=== PATIENT | female | born 1960 | race Caucasian/White ===

== ENCOUNTER → 2020-03-25 07:31 | Outpatient (BNVA) | payer OTHER, SELFPAY | PROVIDERS: PCP Family Medicine; Referring Provider Family Medicine; Visit Provider Internal Medicine | DX: Z76.89 Persons encountering health services in other specified circumstances (principal) ==

== ENCOUNTER 2020-03-27 07:30 | Outpatient (REF) | payer OTHER, SELFPAY ==
[2020-03-28 11:21] LABS: Thyroid Peroxidase Antibodies 4 IU/mL (<9)
== END 2020-03-27 07:31 | disposition home or self-care (01) ==
LOC: HO.10HDL 07:30
PROVIDERS: Visit Provider Internal Medicine
DX: E04.2 Nontoxic multinodular goiter (principal); I10 Essential (primary) hypertension; E55.9 Vitamin D deficiency, unspecified
CPT/HCPCS: 36415; 86376

== ENCOUNTER 2020-03-27 07:37 | Outpatient (REF) | payer OTHER, SELFPAY ==
[2020-03-27 11:01] LABS: Anion Gap 15 (12-20); Blood Urea Nitrogen 18 mg/dL (9-16); Calcium 9.3 mg/dL (8.4-10.2); Carbon Dioxide 27 mmol/L (22-29); Chloride 100 mmol/L (96-108); Estimated Glomerular Filt Rate > 60; Glucose Random 91 mg/dL (60-115); Potassium 4.1 mmol/l (3.3-5.1); Sodium 138 mmol/L (135-145)
[2020-03-27 11:26] LABS: Free T4 (Free Thyroxine) 1.12 ng/dL (0.71-1.85); Thyroid Stimulating Hormone 2.71 mIU/mL (0.32-4.0); Vitamin D 25-OH Total 18.6 ng/mL (>30)
[2020-03-28 10:37] LABS: Triiodothyronine T3 Total 93 ng/dL (76-181)
== END 2020-03-27 07:38 | disposition home or self-care (01) ==
LOC: HO.10HDL 07:37
PROVIDERS: Visit Provider Internal Medicine
DX: E04.2 Nontoxic multinodular goiter (principal); I10 Essential (primary) hypertension; E55.9 Vitamin D deficiency, unspecified
CPT/HCPCS: 80048; 82088; 82306; 84244; 84439; 84443; 84480

== ENCOUNTER 2020-05-14 07:46 | Outpatient (REF) | payer OTHER, SELFPAY ==
--- NOTE | 2020-05-14 08:46 | PM.OP ---
Brief Operative Note Date of Service: 05/14/20 Surgeon: Sommer Enrique, DO This is doctor Sommer Enrique. This is an ultrasound-guided fine-needle aspiration report. Patient name: Prema Mccollum : 1960 Date of Examination: 05/14/2020 Referring Physician Is: Indication: Multinodular Thyroid Porcedure: Procedure was explained to the patient. Alternatives, the risk and benefits were discussed. Written consent was obtained. A time-out was also obtained. After sterile preparation, fine-needle aspiration of A right lower pole 2.9 cm thyroid nodule was performed using direct ultrasound guidance to confirm accurate needle placement. Four aspirations were made using 27 gauge needles. Samples were submitted for cytology. One pass was dedicated for [employer] sequencing tax examining technician testing. Fine-needle aspiration of A right mid pole 1.4 cm thyroid nodule was performed using direct ultrasound guidance to confirm accurate needle placement. Four aspirations were made using 27 gauge needles. Samples were submitted for cytology. One pass was dedicated for [employer] sequencing tax examining technician testing.The patient tolerated the procedure well. Aftercare instructions were provided. Impression: Uncomplicated fine needle aspiration biopsy of a R lower pole 2.9 cm and a R mid pole 1.4 cm thyroid nodule under ultrasound guideance. Estimated blood loss (mL): 0
[2020-05-14] MEDS: Lidocaine HCl 1 % MPF 5 ML VIAL SUBCUT (11:27)
== END 2020-05-14 07:47 | disposition home or self-care (01) ==
LOC: HO.US 07:46
PROVIDERS: PCP Family Medicine; Visit Provider Internal Medicine
DX: E04.2 Nontoxic multinodular goiter (principal)
CPT/HCPCS: 10005; 88172; 88173; 88177; 88305

== ENCOUNTER → 2020-05-27 08:09 | Outpatient (BNVA) | payer OTHER, SELFPAY | PROVIDERS: PCP Family Medicine; Referring Provider Family Medicine; Visit Provider Internal Medicine | DX: Z76.89 Persons encountering health services in other specified circumstances (principal) ==

== ENCOUNTER 2020-06-12 07:26 | Outpatient (REF) | payer OTHER, SELFPAY ==
--- NOTE | 2020-06-12 07:28 | CT_ITS ---
EXAMINATION: CT SOFT TISSUE NECK WITHOUT CONTRAST CLINICAL INFORMATION: Nontoxic multinodular goiter. COMPARISON: Cervical spine CT January 2020 and thyroid ultrasound February 2020 TECHNIQUE: Helical imaging was performed in the axial plane with generation of coronal and sagittal reformatted images. This CT examination was performed using dose optimization techniques as appropriate, variously including the following: *Automated exposure control *Adjustment of mA and/or kV according to patient size (this includes techniques or standardized protocols for targeted exams where dose is matched to indication/reason for exam; i.e. extremities or head) *Use of iterative reconstruction technique DLP: 379 mGy-cm FINDINGS: The right lobe of the thyroid gland is enlarged measuring 6 x 3 x 3 cm in sagittal AP and transverse dimension. The left lobe of the thyroid gland is normal in size measuring 3.6 x 1.2 x 1.5 cm in sagittal AP and transverse dimension. There are multiple bilateral thyroid nodules. The largest thyroid nodule in the mid to lower pole of the right lobe measures approximately 2.8 x 2.8 x 2.3 cm, appears complex cystic and partially calcified. No substernal extension is seen. No tracheal impingement or displacement is seen. There is food seen in the cervical and visualized thoracic esophagus. There are no enlarged lymph nodes. The visualized intracranial structures are normal. The visualized orbits, paranasal sinuses, mastoid air cells and middle ears are clear. Temporomandibular joints are normal. Salivary glands are normal. The nasopharynx, oropharynx and hypopharynx are normal. There is multilevel degenerative spondylosis, degenerative disc disease and facet arthritis. There is curvature of the lower cervical and upper thoracic spine to the right. CT/CT soft tissue neck wo con IMPRESSION: Enlarged right thyroid lobe. Bilateral thyroid nodules. The largest nodule is in the mid and lower pole of the right lobe, measures 3.6 x 1.2 x 1.5 cm, appears complex cystic with calcifications. No mass effect on the trachea or deviation is seen. The cervical and visualized thoracic esophagus is filled with food. Clinical correlation is recommended, i.e., has the patient recently eaten?
== END 2020-06-12 07:27 | disposition home or self-care (01) ==
LOC: HO.CT 07:26
PROVIDERS: PCP Family Medicine; Visit Provider Internal Medicine
DX: E04.2 Nontoxic multinodular goiter (principal)
CPT/HCPCS: 70490

== ENCOUNTER → 2020-07-16 13:44 | Outpatient (BNVA) | payer OTHER, SELFPAY | PROVIDERS: PCP Family Medicine; Visit Provider Internal Medicine ==

== ENCOUNTER 2020-08-07 09:26 | Outpatient (REF) | payer OTHER, SELFPAY ==
--- NOTE | ~2020-08-07 | FL_ITS ---
PROCEDURE: FL BARIUM SWALLOW CLINICAL INFORMATION: Dysphagia. COMPARISON: None TECHNIQUE: Barium swallow examination is performed using fluoroscopic evaluation in addition to multiple fluoroscopic spot views. The patient is imaged both upright and prone and using both thick and thin sulfate along with effervescent granules. Fluoroscopy time: 1.7 minutes DAP: 9.183 Gycm2 Images: 53 FINDINGS: Following oral administration of thin, thick barium and barium-coated turkey there is normal propagation of bolus from the oral cavity through the pharynx, esophagus into stomach without any evidence of obstruction, narrowing or stricture. On placing patient prone lying and oral administration of thin barium there is good distention of esophagus without intraluminal filling defect or narrowing. No gastroesophageal reflux or hiatal hernia seen. There is occasional tertiary peristalsis seen in esophagus in supine lying position. Also visualized is retained barium in the dependent portion of esophagus in supine position. FL/FL barium swallow IMPRESSION: Unremarkable barium swallow exam in upright and lying position. Occasional tertiary peristalsis and minimal retained barium in esophagus in supine position. Fluoroscopy time: 1.7 minutes. Dose area product: 9.183. Images: 53.
== END 2020-08-07 09:27 | disposition home or self-care (01) ==
LOC: HO.XRAY 09:26
PROVIDERS: PCP Family Medicine; Visit Provider Internal Medicine
DX: R13.10 Dysphagia, unspecified (principal)
CPT/HCPCS: 74220

== ENCOUNTER 2020-08-27 07:37 | Outpatient (REF) | payer OTHER, SELFPAY ==
[2020-08-27 11:17] LABS: Free T4 (Free Thyroxine) 1.02 ng/dL (0.71-1.85); Thyroid Stimulating Hormone 2.47 uIU/mL (0.32-4.0); Vitamin D 25-OH Total 58.1 ng/mL (>30)
== END 2020-08-27 07:38 | disposition home or self-care (01) ==
LOC: HO.10HDL 07:37
PROVIDERS: Visit Provider Internal Medicine
DX: E04.2 Nontoxic multinodular goiter (principal); E55.9 Vitamin D deficiency, unspecified
CPT/HCPCS: 36415; 82306; 84439; 84443

== ENCOUNTER 2021-03-25 08:24 | Outpatient (REF) | payer OTHER, SELFPAY ==
[2021-03-25 11:38] LABS: Albumin Level 4.2 g/dL (3.5-5.0); Calcium 9.4 mg/dL (8.4-10.2)
[2021-03-25 12:05] LABS: Free T4 (Free Thyroxine) 0.77 ng/dL (0.71-1.85); Thyroid Stimulating Hormone 9.21 uIU/mL (0.32-4.0); Vitamin D 25-OH Total 35.7 ng/mL (>30)
[2021-03-26 15:51] LABS: Calcium (PTHI) 9.4 mg/dL (8.6-10.4); PTHI 25 pg/mL (14-64)
== END 2021-03-25 08:25 | disposition home or self-care (01) ==
LOC: HO.10HDL 08:24
PROVIDERS: Visit Provider Internal Medicine
DX: E04.2 Nontoxic multinodular goiter (principal); E55.9 Vitamin D deficiency, unspecified
CPT/HCPCS: 36415; 82040; 82306; 82310; 83970; 84439; 84443

== ENCOUNTER → 2021-03-29 07:53 | Outpatient (BNVA) | payer OTHER, SELFPAY | PROVIDERS: PCP Family Medicine; Visit Provider Internal Medicine ==

== ENCOUNTER 2021-05-10 16:05 | Outpatient (REF) | payer OTHER, SELFPAY ==
--- NOTE | ~2021-05-10 | US_ITS ---
EXAMINATION: US THYROID CLINICAL INFORMATION: Nontoxic multinodular goiter. COMPARISON: CT soft tissue neck without contrast dated 06/12/2020. ultrasound guided fine needle aspiration of the thyroid dated 05/14/2020. Ultrasound soft tissue head/neck thyroid dated 02/12/2020. TECHNIQUE: Linear transducer grayscale and color Doppler examination with attention to the region of the thyroid. FINDINGS: SIZE: Measurements of the solitary left thyroid lobe and nodules are given in sagittal, anteroposterior and transverse dimensions respectively. Right Thyroid Lobe: Surgically removed. Left Thyroid Lobe: 4.2 x 1.1 x 1.1 cm, volume 2.7 mL. Previously 4.2 x 1.1 x 1.2 cm, volume 2.9 mL. Parenchyma: The gland echotexture is heterogeneous. Thyroid vascularity is normal. Isthmus: Surgically removed. Estimated total number of nodules greater than or equal to 1 cm: 1. Watch Manufacturing Supervisor nodules are described as follows: 1. Location: Left superior. Size: 0.31 x 0.29 x 0.4 cm, volume 0.02 mL. Previously: 0.42 x 0.33 x 0.4 cm, volume 0.02 mL. Nodule characteristics: Composition: Solid (2). Echogenicity: Hyperechoic (1). Shape: Not taller than wide (0). Margins: Smooth (0). Echogenic Foci: None (0). ACR TI-RADS total points: 3 Previous: n/a ACR TI-RADS category: 3 Previous: n/a Significant change in size (>/= 20% in 2 dimensions and minimal increase of 2 mm or 50% or greater increase in volume): No Change in features: No Change in ACR TI-RADS risk category: n/a 2. Location: Left superior. Size: 0.38 x 0.34 x 0.51 cm, volume 0.03 mL. Previously: 0.7 x 0.51 x 0.5 cm, volume 0.09 mL. Nodule characteristics: Composition: Solid (2). Echogenicity: Hyperechoic (1). Shape: Not taller than wide (0). Margins: Smooth (0). Echogenic Foci: None (0). ACR TI-RADS total points: 3 Previous: n/a ACR TI-RADS category: 3 Previous: n/a Significant change in size (>/= 20% in 2 dimensions and minimal increase of 2 mm or 50% or greater increase in volume): No Change in features: No Change in ACR TI-RADS risk category: n/a 3. Location: Left mid. Size: 0.61 x 0.48 x 0.61 cm, volume 0.09 mL. Previously: 0.71 x 0.51 x 0.59 cm, volume 0.11 mL. Nodule characteristics: Composition: Solid/almost completely solid (2). Echogenicity: Hypoechoic (2). Shape: Not taller than wide (0). Margins: Smooth (0). Echogenic Foci: None (0). ACR TI-RADS total points: 4 Previous: n/a ACR TI-RADS category: 4 Previous: n/a Significant change in size (>/= 20% in 2 dimensions and minimal increase of 2 mm or 50% or greater increase in volume): No Change in features: No Change in ACR TI-RADS risk category: n/a 4. Location: Left inferior. Size: 1.1 x 0.74 x 0.86 cm, volume 0.36 mL. Previously: 1.3 x 0.7 x 0.81 cm, volume 0.39 mL. Nodule characteristics: Composition: Solid/almost completely solid (2). Echogenicity: Hyperechoic (1). Shape: Not taller than wide (0). Margins: Smooth (0). Echogenic Foci: None (0). ACR TI-RADS total points: 3 Previous: n/a ACR TI-RADS category: 3 Previous: n/a Significant change in size (>/= 20% in 2 dimensions and minimal increase of 2 mm or 50% or greater increase in volume): No Change in features: No Change in ACR TI-RADS risk category: n/a NODES: No lymphadenopathy is seen in the tissue surrounding the thyroid gland. US/US thyroid IMPRESSION: Multinodular left lobe of the thyroid gland. No significant change in size or appearance of the thyroid nodules. Based on size and TI-RADS category of these nodules, no further follow-up is recommended.. ACR TI-RADS RECOMMENDATION REFERENCE: Ultrasound-guided fine-needle aspiration, followup ultrasound, no further follow up. * TR1 (0 point) and TR 2 (2 points): No FNA or follow up * TR3 (3 points): FNA if more than or equal to 2.5 cm in maximum dimension, followup ultrasound in 1, 3 and 5 years if 1.5 to 2.4 cm in maximum dimension. * TR4 (4-6 points): FNA if more than or equal to 1.5 cm in maximum dimension, followup ultrasound in 1, 2, 3 and 5 years if 1 to 1.4 cm in maximum dimension. * TR5 (more than or equal to 7 points): FNA if more than or equal to 1 cm in maximum dimension, followup ultrasound every year for 5 years if 0.5 to 0.9 cm in maximum dimension. * TR3, TR4 or TR5 nodules that are below the size threshold for follow up receive no follow up.
== END 2021-05-10 16:06 | disposition home or self-care (01) ==
LOC: HO.US 16:05
PROVIDERS: PCP Internal Medicine Gastroenterology; Visit Provider Internal Medicine
DX: E04.2 Nontoxic multinodular goiter (principal)
CPT/HCPCS: 76536

== ENCOUNTER 2021-05-27 11:32 | Outpatient (REF) | payer OTHER, SELFPAY ==
[2021-05-27 13:53] LABS: Alanine Aminotransferase 24 U/L (0-31); Albumin Level 4.4 g/dL (3.5-5.0); Alkaline Phosphatase 94 U/L (39-117); Anion Gap 11 (12-20); Aspartate Amino Transferase 25 U/L (5-31); Bilirubin Total 0.6 mg/dL (0.0-1.0); Blood Urea Nitrogen 19 mg/dL (9-16); Calcium 9.8 mg/dL (8.4-10.2); Carbon Dioxide 32 mmol/L (22-29); Chloride 103 mmol/L (96-108); Estimated Glomerular Filt Rate > 60; Glucose Random 94 mg/dL (60-115); Potassium 4.9 mmol/L (3.3-5.1); Sodium 141 mmol/L (135-145); Total Protein 7.2 g/dL (6.5-8.0)
[2021-05-27 14:15] LABS: Free T4 (Free Thyroxine) 1.14 ng/dL (0.71-1.85); Thyroid Stimulating Hormone 4.29 uIU/mL (0.32-4.0); Vitamin D 25-OH Total 36.6 ng/mL (>30)
[2021-05-31 12:36] LABS: Calcium (PTHI) 9.5 mg/dL (8.6-10.4); PTHI 40 pg/mL (14-64)
== END 2021-05-27 11:33 | disposition home or self-care (01) ==
LOC: HO.10HDL 11:32
PROVIDERS: Visit Provider Internal Medicine
DX: E89.0 Postprocedural hypothyroidism (principal); E55.9 Vitamin D deficiency, unspecified
CPT/HCPCS: 36415; 80053; 82306; 83970; 84439; 84443

== ENCOUNTER → 2021-06-03 10:35 | Outpatient (BNVA) | payer OTHER, SELFPAY | PROVIDERS: PCP Internal Medicine Gastroenterology; Visit Provider Internal Medicine ==

== ENCOUNTER 2021-10-16 09:51 | Outpatient (REF) | payer OTHER, SELFPAY ==
[2021-10-16 10:45] LABS: Alanine Aminotransferase 23 U/L (0-31); Alkaline Phosphatase 94 U/L (39-117); Anion Gap 12 (12-20); Aspartate Amino Transferase 29 U/L (5-31); Bilirubin Total 0.5 mg/dL (0.0-1.0); Blood Urea Nitrogen 22 mg/dL (9-16); Calcium 9.4 mg/dL (8.4-10.2); Carbon Dioxide 31 mmol/L (22-29); Chloride 103 mmol/L (96-108); Cholesterol 189 mg/dL; Estimated Glomerular Filt Rate > 60; Glucose Fasting 92 mg/dL (60-99); HDL Cholesterol 57 mg/dL; LDL Cholesterol Calculated 117 mg/dl; Potassium 4.6 mmol/L (3.3-5.1); Sodium 141 mmol/L (135-145); Total Protein 6.8 g/dL (6.5-8.0); Triglycerides 76 mg/dL
[2021-10-16 10:55] LABS: Estimated Average Glucose 100 mg/dL; Hemoglobin A1c % 5.1 %
[2021-10-16 11:05] LABS: Thyroid Stimulating Hormone 3.61 uIU/mL (0.32-4.0)
== END 2021-10-16 09:52 | disposition home or self-care (01) ==
LOC: HO.LAB 09:51
PROVIDERS: Absent Provider Nurse Practitioner Family; PCP Nurse Practitioner Family; Visit Provider Internal Medicine
DX: Z13.1 Encounter for screening for diabetes mellitus (principal); Z13.220 Encounter for screening for lipoid disorders; I10 Essential (primary) hypertension; E78.2 Mixed hyperlipidemia; E04.1 Nontoxic single thyroid nodule
CPT/HCPCS: 36415; 80053; 80061; 83036; 84443

== ENCOUNTER 2021-11-12 10:47 | Outpatient (REF) | payer OTHER, SELFPAY ==
--- NOTE | ~2021-11-12 | US_ITS ---
EXAMINATION: US GUIDED THYROID FINE-NEEDLE ASPIRATION CLINICAL INFORMATION: Left thyroid nodule COMPARISON: Previous thyroid ultrasound June 2020 TECHNIQUE: Procedure and risks and benefits including bleeding and infection were discussed with the patient and informed consent was obtained. The left neck was prepped and draped in the usual sterile fashion. The skin and soft tissues were anesthetized with 1% lidocaine plain. Using ultrasound guidance and a 25-gauge needle, access to the nodule in the inferior left lobe was obtained. Four 25-gauge specimens were obtained. FINDINGS: There is a 1.1 x 1.0 x 0.8 cm iso- to slightly hypoechoic nodule in the inferior left lobe that was targeted for fine-needle aspiration. US/US guided fine needle asp IMPRESSION: Ultrasound-guided left thyroid nodule fine-needle aspiration.
[2021-11-12] MEDS: Lidocaine HCl 1 % MPF 5 ML VIAL SUBCUT (12:05)
== END 2021-11-12 10:48 | disposition home or self-care (01) ==
LOC: HO.US 10:47
PROVIDERS: PCP Nurse Practitioner Family; Visit Provider Internal Medicine
DX: E04.2 Nontoxic multinodular goiter (principal)
CPT/HCPCS: 10005; 88172; 88173; 88177; 88305

== ENCOUNTER 2022-03-14 07:58 | Outpatient (REF) | payer OTHER, SELFPAY ==
--- NOTE | ~2022-03-14 | MM_ITS ---
EXAMINATION: MM SCREENING DIGITAL BREAST TOMOSYNTHESIS, BILATERAL CLINICAL INFORMATION: Screening. Asymptomatic. The lifetime risk of breast cancer based on the Tyrer-Cuzick Model is 8%. COMPARISON: Mammography: 09/12/2018, 08/31/2017; outside mammography 09/08/2015 ([facility]) TECHNIQUE: Digital breast tomosynthesis is performed in both the craniocaudal and mediolateral oblique views along with computer-aided detection (CAD). Synthesized 2D images are generated from the tomosynthesis. FINDINGS: There are scattered areas of fibroglandular density (ACR BI-RADS breast composition Category b). There are no significant masses, abnormal calcifications, or other abnormalities. Parenchymal pattern is similar to prior studies. No developing density. No architectural abnormality. The axilla and skin contours are unremarkable. MM/MM tomosynthesis screening BI IMPRESSION: No mammographic evidence of malignancy. ASSESSMENT: BI-RADS 1: Negative RECOMMENDATION: Routine annual mammography screening. This patient's information was entered into a reminder system with a target due date for their next mammogram.
== END 2022-03-14 07:59 | disposition home or self-care (01) ==
LOC: HO.MAMMO 07:58
PROVIDERS: PCP Nurse Practitioner Family; Visit Provider Nurse Practitioner Family
DX: Z12.31 Encounter for screening mammogram for malignant neoplasm of breast (principal)
CPT/HCPCS: 77063; 77067

== ENCOUNTER 2022-07-18 15:27 | Outpatient (REF) | payer OTHER, SELFPAY ==
--- NOTE | 2022-07-18 17:10 | MHC.AU.MED ---
Medical Clearance for Hearing Instrumentation Date: 07/18/22 Patient Name: Prema Mccollum Date of : 1960 Primary Care Provider: Referring Provider: Audrey Burleson NP We have seen your patient on 07/18/22 and have determined that they are a candidate for amplification (See accompanying report). Specifically, they would benefit from: Hearing aid use in both ears There is a statute that addresses Medical Evaluation Requirements prior to fitting a patient with a hearing aid. According to [place] statute 265 CMR:6.03(1), (a) General. Except as provided in 265 CMR 6.03(1)(b), a flow nurse shall not sell a hearing aid unless the prospective user has presented to the flow nurse a written statement signed by a licensed physician that states that the patient's hearing loss has been medically evaluated and the patient may be considered a candidate for a hearing aid. The medical evaluation must have taken place within the preceding six months. Please note: Due to the [place] Statute referenced above, we cannot accept a signature other than that of a licensed physician. ULTRASOUND SPEC and PA signatures cannot be accepted. I am in agreement with the above recommendation. There is no medical contraindication for hearing instrumentation. Physician Signature Date Physician Name (Printed)
== END 2022-07-18 15:28 | disposition home or self-care (01) ==
LOC: HO.SH 15:27
PROVIDERS: Visit Provider Nurse Practitioner Family
DX: Z01.118 Encounter for examination of ears and hearing with other abnormal findings (principal); H90.3 Sensorineural hearing loss, bilateral; H93.19 Tinnitus, unspecified ear
CPT/HCPCS: 92557; 92567; 92700

== ENCOUNTER → 2022-09-27 15:01 | Outpatient (BNVA) | payer OTHER, SELFPAY | PROVIDERS: PCP Nurse Practitioner Family; Visit Provider Nurse Practitioner | DX: K58.9 Irritable bowel syndrome, unspecified (principal); Z83.71 Family history of colonic polyps | CPT/HCPCS: G0463 ==

== ENCOUNTER 2022-10-19 14:56 | Outpatient (REF) | payer OTHER, SELFPAY ==
--- NOTE | ~2022-10-19 | US_ITS ---
EXAMINATION: US THYROID CLINICAL INFORMATION: Nontoxic multinodular goiter. COMPARISON: Ultrasound thyroid 05/10/2021. CT soft tissue neck without contrast 06/12/2020. Ultrasound thyroid 02/12/2020. US-guided thyroid biopsy 11/12/2021. TECHNIQUE: Linear transducer grayscale and color Doppler examination with attention to the region of the thyroid. FINDINGS: SIZE: Measurements of the solitary left thyroid lobe and nodules are given in sagittal, anteroposterior and transverse dimensions respectively. Right Thyroid Lobe: Surgically absent. Left Thyroid Lobe: 3.9 x 1.3 x 1.4 cm, volume 3.8 mL. Previously 4.2 x 1.1 x 1.1 cm, volume 2.7 mL. Parenchyma: The gland echotexture is heterogeneous. Thyroid vascularity is normal. Isthmus: Surgically absent. Estimated total number of nodules greater than or equal to 1 cm: 0. Peat Shredder Tender nodules are described as follows: 1. Location: Left superior. Size: 0.4 x 0.3 x 0.4 cm, volume 0.03 mL. Previously: 0.3 x 0.3 x 0.4 cm, volume 0.02 mL. Nodule characteristics: Composition: Solid (2). Echogenicity: Hyperechoic (1). Shape: Not taller than wide (0). Margins: Smooth (0). Echogenic Foci: Macrocalcifications (1). ACR TI-RADS total points: 4 Previous: 3 ACR TI-RADS category: 4 Previous: 3 Significant change in size (>/= 20% in 2 dimensions and minimal increase of 2 mm or 50% or greater increase in volume): Yes Change in features: Yes Change in ACR TI-RADS risk category: Yes 2. Location: Left superior. Size: 0.5 x 0.4 x 0.4 cm, volume 0.04 mL. Previously: 0.4 x 0.3 x 0.5 cm, volume 0.03 mL. Nodule characteristics: Composition: Solid (2). Echogenicity: Cannot be determined (1). Shape: Not taller than wide (0). Margins: Smooth (0). Echogenic Foci: None (0). ACR TI-RADS total points: 3 Previous: 3 ACR TI-RADS category: 3 Previous: 3 Significant change in size (>/= 20% in 2 dimensions and minimal increase of 2 mm or 50% or greater increase in volume): No Change in features: No Change in ACR TI-RADS risk category: No 3. Location: Left mid. Size: 0.8 x 0.5 x 0.6 cm, volume 0.12 mL. Previously: 0.6 x 0.5 x 0.6 cm, volume 0.09 mL. Nodule characteristics: Composition: Solid (2). Echogenicity: Hypoechoic (2). Shape: Not taller than wide (0). Margins: Smooth (0). Echogenic Foci: Punctate echogenic foci (3). ACR TI-RADS total points: 7 Previous: 4 ACR TI-RADS category: 5 Previous: 4 Significant change in size (>/= 20% in 2 dimensions and minimal increase of 2 mm or 50% or greater increase in volume): No Change in features: Yes Change in ACR TI-RADS risk category: Yes 4. Location: Left inferior. Size: 0.9 x 0.7 x 0.9 cm, volume 0.3 mL. Previously: 1.1 x 0.7 x 0.9 cm, volume 0.36 mL. Nodule characteristics: Composition: Solid (2). Echogenicity: Isoechoic (1). Shape: Not taller than wide (0). Margins: Smooth (0). Echogenic Foci: None (0). ACR TI-RADS total points: 3 Previous: 3 ACR TI-RADS category: 3 Previous: 3 Significant change in size (>/= 20% in 2 dimensions and minimal increase of 2 mm or 50% or greater increase in volume): No Change in features: No Change in ACR TI-RADS risk category: No NODES: No lymphadenopathy is seen in the tissue surrounding the thyroid gland. US/US thyroid IMPRESSION: 1. Small left thyroid lobe nodules are seen, as detailed. 2. The right thyroid lobe and thyroid isthmus are surgically absent. No residual or recurrent mass lesion is seen within the corresponding former thyroid bed. ACR TI-RADS RECOMMENDATION REFERENCE: Ultrasound-guided fine-needle aspiration, followup ultrasound, no further follow up. * TR1 (0 point) and TR2 (2 points): No FNA or follow up. * TR3 (3 points): FNA if more than or equal to 2.5 cm in maximum dimension, followup ultrasound in 1, 3 and 5 years if 1.5 to 2.4 cm in maximum dimension. * TR4 (4-6 points): FNA if more than or equal to 1.5 cm in maximum dimension, followup ultrasound in 1, 2, 3 and 5 years if 1 to 1.4 cm in maximum dimension. * TR5 (more than or equal to 7 points): FNA if more than or equal to 1 cm in maximum dimension, followup ultrasound every year for 5 years if 0.5 to 0.9 cm in maximum dimension. * TR3, TR4 or TR5 nodules that are below the size threshold for followup receive no follow up.
== END 2022-10-19 14:57 | disposition home or self-care (01) ==
LOC: HO.US 14:56
PROVIDERS: PCP Nurse Practitioner Family; Visit Provider Internal Medicine
DX: E04.2 Nontoxic multinodular goiter (principal)
CPT/HCPCS: 76536

== ENCOUNTER 2022-11-26 09:05 | Outpatient (REF) | payer OTHER, SELFPAY ==
[2022-11-26 09:19] LABS: MANUAL DIFF FLAG NO
[2022-11-26 09:34] LABS: Basophils Percent Auto 0.4 % (0-2); Eosinophils Absolute Auto 0.2 X10*3/uL (0.0-0.4); Eosinophils Percent Auto 1.5 % (0-4); Hematocrit 43.6 % (37.0-47.0); Hemoglobin 13.8 g/dl (12.0-16.0); Imm Gran Abs Auto 0.03 X10*3/uL (0.00-0.03); Imm Gran Pct Auto 0.3 % (0.0-0.4); Lymphocytes Absolute Auto 3.2 X10*3/uL (1.2-4.9); Lymphocytes Percent Auto 31.6 % (20-40); Mean Corpuscular HGB Conc 31.7 g/dl (31.0-35.0); Mean Corpuscular Hemoglobin 28.9 pg (27.0-33.0); Mean Corpuscular Volume 91.4 fL (80.0-98.0); Mean Platelet Volume 11.1 fL (9.4-12.3); Monocytes Absolute Auto 0.4 X10*3/uL (0.1-1.2); Monocytes Percent Auto 3.6 % (2-11); Neutrophils Absolute Auto 6.4 x10*3/uL (2.0-8.3); Neutrophils Percent Auto 62.6 % (45-73); Platelet Count 233 X10*3/uL (160-400); Red Blood Count 4.77 X10*6/uL (4.20-5.50); Red Cell Distribution Width 13.8 % (11.0-16.0); White Blood Count 10.2 X10*3/uL (4.8-10.8)
[2022-11-26 10:19] LABS: Alanine Aminotransferase 20 U/L (0-31); Alkaline Phosphatase 102 U/L (39-117); Anion Gap 13 (12-20); Aspartate Amino Transferase 26 U/L (5-31); Bilirubin Total 0.4 mg/dL (0.0-1.0); Blood Urea Nitrogen 17 mg/dL (9-16); Calcium 9.7 mg/dL (8.4-10.2); Carbon Dioxide 29 mmol/L (22-29); Chloride 105 mmol/L (96-108); Estimated Glomerular Filt Rate > 60; Glucose Random 98 mg/dL (60-115); Potassium 4.7 mmol/L (3.3-5.1); Sodium 142 mmol/L (135-145); Total Protein 7.2 g/dL (6.5-8.0)
[2022-11-26 10:33] LABS: Free T4 (Free Thyroxine) 1.04 ng/dL (0.71-1.85); Vitamin D 25-OH Total 36.4 ng/mL (>30)
[2022-11-26 10:38] LABS: Thyroid Stimulating Hormone 4.17 uIU/mL (0.32-4.0)
== END 2022-11-26 09:06 | disposition home or self-care (01) ==
LOC: HO.LAB 09:05
PROVIDERS: Nurse Practitioner; PCP Nurse Practitioner Family; Visit Provider Internal Medicine
DX: E04.2 Nontoxic multinodular goiter (principal); K58.9 Irritable bowel syndrome, unspecified; E55.9 Vitamin D deficiency, unspecified; E89.0 Postprocedural hypothyroidism
CPT/HCPCS: 36415; 80053; 82306; 84439; 84443; 85025

== ENCOUNTER → 2022-11-28 11:12 | Outpatient (BNVA) | payer OTHER, SELFPAY | PROVIDERS: PCP Nurse Practitioner Family; Visit Provider Internal Medicine ==

== ENCOUNTER 2022-12-02 14:57 | Outpatient (REF) | payer OTHER, SELFPAY ==
[2022-12-02 16:05] LABS: Influenza A PCR NEGATIVE (Negative); Influenza B PCR NEGATIVE (Negative); Resp Syncy Virus RNA Qual PCR NEGATIVE (Negative); SARS COV2 PCR INHOUSE NEGATIVE (Negative)
== END 2022-12-02 14:58 | disposition home or self-care (01) ==
LOC: HO.LNP 14:57
PROVIDERS: Visit Provider Nurse Practitioner Family
DX: Z20.822 Contact with and (suspected) exposure to COVID-19 (principal); R09.89 Other specified symptoms and signs involving the circulatory and respiratory systems
CPT/HCPCS: 0241U

== ENCOUNTER 2023-03-17 08:35 | Outpatient (REF) | payer OTHER, SELFPAY | END 2023-03-17 08:36 | disposition home or self-care (01) | LOC: HO.MAMMO 08:35 | PROVIDERS: Visit Provider Nurse Practitioner Family | DX: Z12.31 Encounter for screening mammogram for malignant neoplasm of breast (principal) | CPT/HCPCS: 77063; 77067 ==

== ENCOUNTER → 2023-03-17 08:45 | Outpatient (BNV) | payer OTHER, SELFPAY | PROVIDERS: Visit Provider Radiology Diagnostic Radiology | DX: Z12.31 Encounter for screening mammogram for malignant neoplasm of breast (principal) | CPT/HCPCS: 77063; 77067 ==

== ENCOUNTER 2023-07-06 08:00 | Outpatient (RCR) | payer OTHER, SELFPAY | END 2023-08-14 12:32 | disposition home or self-care (01) | LOC: HO.PT 08:00 | PROVIDERS: PCP Nurse Practitioner Family; Visit Provider Nurse Practitioner Family | DX: M25.562 Pain in left knee (principal) | CPT/HCPCS: 97110; 97140; 97162 ==

== ENCOUNTER 2023-09-27 07:35 | Outpatient (REF) | payer OTHER, SELFPAY ==
[2023-09-27 11:18] LABS: Free T4 (Free Thyroxine) 1.04 ng/dL (0.71-1.85); Thyroid Stimulating Hormone 3.88 uIU/mL (0.32-4.0)
== END 2023-09-27 07:36 | disposition home or self-care (01) ==
LOC: HO.10HDL 07:35
PROVIDERS: Visit Provider Internal Medicine Endocrinology, Diabetes & Metabolism
DX: E89.0 Postprocedural hypothyroidism (principal)
CPT/HCPCS: 36415; 84439; 84443

== ENCOUNTER 2023-10-03 14:50 | Outpatient (AMB) | payer OTHER, SELFPAY ==
--- NOTE | 2023-10-03 14:52 | MHC.OFFVIS ---
Vital Signs 10/03/23 15:00 Height 5 ft 8 in Weight 258 lb 6.108 oz BMI 39.3 BP 130/72 Blood Pressure Location Lt brachial Position Sitting Pulse 95 Pulse Source Pulse Oximeter Intake Visit Reasons: F/U NTMNG-neri pt Intake Note: Patient presents today for NTMNG follow up, last seen by Dr. Joy on 11/28/22. Productivity Engineer Required: No Accompanied by: Self / Same As Patient Allergies Iodinated Contrast Media [IV Contrast Dye] Allergy (Severe, Verified 10/03/23 15:05) Anaphylaxis erythromycin base [ERYTHROMYCIN BASE] Allergy (Intermediate, Verified 10/03/23 15:05) Hives HPI Comments Details: 63 YO F who is seen in F/U for a multinodular thyorid S/P a R hemithyroidectomy 01/25/2021 now with postoperative hypothyroidism. Patient last saw Dr. Joy 11/28/2022 Was initially diagnosed with a multinodular thyroid in February 2020 with her thyroid US revealing multiple bilateral large nodules. She had presented to the ED due to inability to move her neck, which was thought to be due to tetanus. She had a CT of the neck which revealed a multinodular thyroid. She subsequently had a thyroid US which is detailed below. She was then referred to Endocrinology. 05/14/2020 she underwent FNA biopsy of her RLP 2.9 cm and RMP 1.4 cm nodules both with Benign ([place] Category II) cytology. At the time of the biopsy she was noted to have a large goiter that did appear to extend substernally. She was complaining of compressive symptoms, and underwent a R hemithyroidectomy by Dr. Lawrence Macario 01/25/2021. Surgical path was benign. There was incidentally 1 intrathyroidal parathyroid which was removed. Postoperatively she developed hypothyroidism. S he was started on levothyroxine and is currently using levothyroxine 75 mcg PO daily. She was then noted to have a LLP 1.1 cm thyroid nodule, and underwent FNA biopsy of this 11/12/2021 with benign ([place] category II) cytology. She does report weight gain of 50 lbs since the surgery. She reports dysphagia has resolved. She does report being present in [place] during the [place] incident. She did not receive iodine prophylaxis. She denies any Family history of thyroid cancer. Thyroid US: 05/10/2021 SIZE: Measurements of the solitary left thyroid lobe and nodules are given in sagittal, anteroposterior and transverse dimensions respectively. Right Thyroid Lobe: Surgically removed. Left Thyroid Lobe: 4.2 x 1.1 x 1.1 cm, volume 2.7 mL. Previously 4.2 x 1.1 x 1.2 cm, volume 2.9 mL. Parenchyma: The gland echotexture is heterogeneous. Thyroid vascularity is normal. Isthmus: Surgically removed. Estimated total number of nodules greater than or equal to 1 cm: 1. 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 Location: Left superior. ?? ? Size: 0.31 x 0.29 x 0.4 cm, volume 0.02 mL. ?? ? Previously: 0.42 x 0.33 x 0.4 cm, volume 0.02 mL. ?? ? Nodule characteristics: ?? ? Composition: Solid (2). ?? ? Echogenicity: Hyperechoic (1). ?? ? Shape: Not taller than wide (0). ?? ? Margins: Smooth (0). ?? ? Echogenic Foci: None (0). ? ACR TI-RADS total points: 3 Previous: n/a ?? ? ACR TI-RADS category: 3 Previous: n/a ? Significant change in size (>/= 20% in 2 dimensions and minimal increase of 2 mm or 50% or greater increase in volume): No ?? ? Change in features: No ?? ? Change in ACR TI-RADS risk category: n/a 2.? Location: Left superior. ?? ? Size: 0.38 x 0.34 x 0.51 cm, volume 0.03 mL. ?? ? Previously: 0.7 x 0.51 x 0.5 cm, volume 0.09 mL. ?? ? Nodule characteristics: ?? ? Composition: Solid (2). ?? ? Echogenicity: Hyperechoic (1). ?? ? Shape: Not taller than wide (0). ?? ? Margins: Smooth (0). ?? ? Echogenic Foci: None (0). ? ACR TI-RADS total points: 3 Previous: n/a ?? ? ACR TI-RADS category: 3 Previous: n/a ? Significant change in size (>/= 20% in 2 dimensions and minimal increase of 2 mm or 50% or greater increase in volume): No ?? ? Change in features: No ?? ? Change in ACR TI-RADS risk category: n/a 3.? Location: Left mid. ?? ? Size: 0.61 x 0.48 x 0.61 cm, volume 0.09 mL. ?? ? Previously: 0.71 x 0.51 x 0.59 cm, volume 0.11 mL. ?? ? Nodule characteristics: ?? ? Composition: Solid/almost completely solid (2). ?? ? Echogenicity: Hypoechoic (2). ?? ? Shape: Not taller than wide (0). ?? ? Margins: Smooth (0). ?? ? Echogenic Foci: None (0). ? ACR TI-RADS total points: 4 Previous: n/a ?? ? ACR TI-RADS category: 4 Previous: n/a ? Significant change in size (>/= 20% in 2 dimensions and minimal increase of 2 mm or 50% or greater increase in volume): No ?? ? Change in features: No ?? ? Change in ACR TI-RADS risk category: n/a 4.? Location: Left inferior. ?? ? Size: 1.1 x 0.74 x 0.86 cm, volume 0.36 mL. ?? ? Previously: 1.3 x 0.7 x 0.81 cm, volume 0.39 mL. ?? ? Nodule characteristics: ?? ? Composition: Solid/almost completely solid (2). ?? ? Echogenicity: Hyperechoic (1). ?? ? Shape: Not taller than wide (0). ?? ? Margins: Smooth (0). ?? ? Echogenic Foci: None (0). ? ACR TI-RADS total points: 3 Previous: n/a ?? ? ACR TI-RADS category: 3 Previous: n/a ? Significant change in size (>/= 20% in 2 dimensions and minimal increase of 2 mm or 50% or greater increase in volume): No ?? ? Change in features: No ?? ? Change in ACR TI-RADS risk category: n/a NODES: No lymphadenopathy is seen in the tissue surrounding the thyroid gland. CT Neck: 06/12/2020 FINDINGS: The right lobe of the thyroid gland is enlarged measuring 6 x 3 x 3 cm in sagittal AP and transverse dimension. The left lobe of the thyroid gland is normal in size measuring 3.6 x 1.2 x 1.5 cm in sagittal AP and transverse dimension. There are multiple bilateral thyroid nodules. The largest thyroid nodule in the mid to lower pole of the right lobe measures approximately 2.8 x 2.8 x 2.3 cm, appears complex cystic and partially calcified. No substernal extension is seen. No tracheal impingement or displacement is seen. There is food seen in the cervical and visualized thoracic esophagus. There are no enlarged lymph nodes. The visualized intracranial structures are normal. The visualized orbits, paranasal sinuses, mastoid air cells and middle ears are clear. Temporomandibular joints are normal. Salivary glands are normal. The nasopharynx, oropharynx and hypopharynx are normal. There is multilevel degenerative spondylosis, degenerative disc disease and facet arthritis. There is curvature of the lower cervical and upper thoracic spine to the right. CT/CT soft tissue neck wo con IMPRESSION: Enlarged right thyroid lobe. Bilateral thyroid nodules. The largest nodule is in the mid and lower pole of the right lobe, measures 3.6 x 1.2 x 1.5 cm, appears complex cystic with calcifications. No mass effect on the trachea or deviation is seen. The cervical and visualized thoracic esophagus is filled with food. Clinical correlation is recommended, i.e., has the patient recently eaten? Labs: Laboratory Tests 10/16/21 10:09 TSH 3.61 PFSH Medical History Dysphagia Endometrial cancer HTN (hypertension) Multinodular thyroid Postoperative hypothyroidism Vitamin D deficiency Surgical History H/O colonoscopy History of endometrial biopsy Hx of eye surgery Hx of partial thyroidectomy Hx of total hysterectomy Family History Father High cholesterol Mother Dementia Sister Ovarian cancer Social History Household Members: None Alcohol intake: never Patient Tobacco Use Status: Never used Tobacco Physical Exam Const Other: Healed scar status post right lobectomy. Left lobe without the presence of any palpable nodules Assessment & Plan Assessment & Plan (1) Multinodular thyroid: Code(s): E04.2 - Nontoxic multinodular goiter Category: Medical Plan: This is a 63-year-old white female with a history of multinodular goiter status post right lobectomy with benign cytology left subcentimeter nodules. She is currently on 88 mcg levothyroxine. She appears to be clinically and biochemically euthyroid. Plan is to increase levothyroxine to 100 mcg and change to branded Synthroid. Recheck TSH and free T4 in 6 weeks time and titrate Synthroid accordingly. We will recheck thyroid ultrasound in 1-2 years time (2) Postoperative hypothyroidism: Code(s): E89.0 - Postprocedural hypothyroidism Category: Medical Plan: As per multinodular goiter Orders: Orders Free T4 (Free Thyroxine) 6 Weeks E89.0 - Postprocedural hypothyroidism Thyroid Stimulating Hormone 6 Weeks E89.0 - Postprocedural hypothyroidism Medications: New Synthroid (levothyroxine) 100 mcg PO DAILY 30 tabs 5RF NS Discontinued levothyroxine Discontinued Reason: Doctor's Order 88 mcg PO DAILY 30 tabs 3RF E89.0 - Postprocedural hypothyroidism Coding Level of Care Code Est Pt Level 3 (68140) Diagnoses Multinodular thyroid E04.2 Postoperative hypothyroidism E89.0
[2023-10-03 15:00] VITALS: BP 130/72; PULSE 95; BMI 39.3
== END 2023-10-03 15:28 | disposition home or self-care (01) ==
PROVIDERS: PCP Nurse Practitioner Family; Visit Provider Internal Medicine Endocrinology, Diabetes & Metabolism
DX: E04.2 Nontoxic multinodular goiter (principal); E89.0 Postprocedural hypothyroidism
CPT/HCPCS: 99213

== ENCOUNTER → 2023-10-03 14:50 | Outpatient (BNVA) | payer OTHER, SELFPAY | PROVIDERS: PCP Nurse Practitioner Family; Visit Provider Internal Medicine Endocrinology, Diabetes & Metabolism ==

== ENCOUNTER 2023-11-27 14:35 | Outpatient (REF) | payer OTHER, SELFPAY ==
[2023-11-27 16:47] LABS: Free T4 (Free Thyroxine) 0.92 ng/dL (0.71-1.85); Thyroid Stimulating Hormone 4.46 uIU/mL (0.32-4.0)
== END 2023-11-27 14:36 | disposition home or self-care (01) ==
LOC: HO.LAB 14:35
PROVIDERS: Visit Provider Internal Medicine Endocrinology, Diabetes & Metabolism
DX: E89.0 Postprocedural hypothyroidism (principal)
CPT/HCPCS: 36415; 84439; 84443

== ENCOUNTER 2023-12-13 14:38 | Outpatient (AMB) | payer OTHER, SELFPAY ==
[2023-12-13 14:41] VITALS: BP 128/78; PULSE 94; TEMP 36.6; O2SAT 96; BMI 38.8
--- NOTE | 2023-12-13 14:41 | AM.OFFWIN_ITS ---
Intake Vital Signs 3 12/13/23 14:41 Height 5 ft 8 in Weight 255 lb 6 oz BMI 38.8 BP 128/78 Blood Pressure Location Rt brachial Position Sitting Pulse 94 Pulse Source Pulse Oximeter Temp 97.9 F Temp Source Temporal Artery Scan Pulse Oximetry (%) 96 Intake Visit Reasons: Rt Leg radiating pain Intake Note: Pt is here for leg radiating pain Patient Tobacco Use Status: Never used Tobacco Allergies Iodinated Contrast Media [IV Contrast Dye] Allergy (Severe, Verified 10/03/23 15:05) Anaphylaxis erythromycin base [ERYTHROMYCIN BASE] Allergy (Intermediate, Verified 10/03/23 15:05) Hives Medication List - Last Reconciled 12/13/23 by Jeniffer Liz MD levothyroxine 100 mcg PO DAILY methylphenidate HCl 10 mg PO BID venlafaxine ER 75 mg PO DAILY Do you need a note to return to daycare/school/sports/work: No HPI Rt Leg radiating pain 2 HPI0 Details Patient is 63-year-old female came in today to be evaluated for pain in her right knee Patient says that couple of days ago she felt discomfort in her knee at night, and now she has difficulty getting up because of pain She does not know if she has a baseline osteoarthritis On examination she is tender to palpation below patella There is no calf tenderness Range of motion of knee is almost full Compared to left knee I did not appreciate any swelling There is no redness or warmth I have ordered baseline x-ray for her knee And have sent diclofenac 75 mg to be taken with food b.i.d. for 10 days Follow up with the primary care [facility] Medical History Postoperative hypothyroidism Dysphagia Endometrial cancer HTN (hypertension) Vitamin D deficiency Multinodular thyroid Surgical History H/O colonoscopy History of endometrial biopsy Hx of partial thyroidectomy Hx of eye surgery Hx of total hysterectomy Family History Father High cholesterol Mother Dementia Sister Ovarian cancer Social History Household Members: None Alcohol intake: never Patient Tobacco Use Status: Never used Tobacco Review of Systems Const All systems reviewed & are unremarkable except as noted in HPI and below Physical Exam Vital Signs: Last Vital Signs Temp 97.9 F 12/13/23 14:41 Pulse 94 12/13/23 14:41 BP 128/78 12/13/23 14:41 Pulse Ox 96 12/13/23 14:41 BMI result Body Mass Index 38.8 Const General: no acute distress Orientation/consciousness: patient oriented x3 Eyes General: appearance normal, both eyes and all related structures Resp Effort & Inspection: normal respiratory effort and able to speak in complete sentences Neuro General: patient oriented x3 Extrem Elbow/forearm/wrist images: 2 1. Tender below patella, mild soreness to palpation around the knee, no pain with calf palpation, range of motion of knee is almost full, compared to left knee there is no swelling right knee, no skin erythema or warmth noted Psych Mental Status: mental status grossly normal Assessment & Plan Assessment & Plan (1) Knee pain, right: Code(s): M25.561 - Pain in right knee Qualifiers: Chronicity: acute Qualified Code(s): M25.561 - Pain in right knee Plan Patient is 63-year-old female came in today to be evaluated for pain in her right knee Patient says that couple of days ago she felt discomfort in her knee at night, and now she has difficulty getting up because of pain She does not know if she has a baseline osteoarthritis On examination she is tender to palpation below patella There is no calf tenderness Range of motion of knee is almost full Compared to left knee I did not appreciate any swelling Orders: Orders 2 XR knee RT 2V Today M25.561 - Pain in right knee Medications: New 2 diclofenac sodium 75 mg PO BID 20 tabs 0RF pain 10 days Coding Level of Care Code Est Pt Level 3 (25059) Diagnoses Acute pain of right knee M25.561 Chronicity: acute
== END 2023-12-13 18:05 | disposition home or self-care (01) ==
PROVIDERS: PCP Nurse Practitioner Family; Visit Provider Internal Medicine
DX: M25.561 Pain in right knee (principal)
CPT/HCPCS: 99213

== ENCOUNTER 2023-12-13 14:54 | Outpatient (REF) | payer OTHER, SELFPAY ==
--- NOTE | ~2023-12-13 | XR_ITS ---
EXAMINATION: XR KNEE, RIGHT CLINICAL INFORMATION: Pain right knee. COMPARISON: None available. TECHNIQUE: Two views of the right knee. FINDINGS: Small joint effusion. Focal defect/thinning of the skin along the [id number] aspect of the patella and correlation with clinical exam recommended to determine further management. Mild narrowing of the tricompartments. Tiny posterior patellar osteophytes. Diffuse demineralization. XR/XR knee RT 2V IMPRESSION: 1. Focal defect/thinning of the skin along the mid to inferior aspect of the patella and correlation with clinical exam recommended to determine further management. 2. Mild degenerative changes.
== END 2023-12-13 14:55 | disposition home or self-care (01) ==
LOC: HO.HMGCX 14:54
PROVIDERS: PCP Nurse Practitioner Family; Visit Provider Internal Medicine
DX: M25.561 Pain in right knee (principal)
CPT/HCPCS: 73560

== ENCOUNTER 2024-04-08 07:00 | Day surgery (SDC) | payer OTHER, SELFPAY ==
[2024-04-04 09:26] VITALS: BMI 38.9
--- OUTSIDE RECORDS SUMMARY | 2024-04-08 07:02 | XMS_ITS ---
Author Organization [facility] Address [address] [place] [address] Care Team Providers Care Floor Space Allocator Name Role Phone Audrey Burleson Primary Care Provider Josh Hinkle [phone] REASON FOR VISIT cx appt Encounters Encounter Location Date Provider Diagnosis [facility] [address] [place] [address] 01/10/2023 Josh Orellana PLAN OF TREATMENT No Information
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
--- OUTSIDE RECORDS SUMMARY | 2024-04-08 07:02 | XMS_ITS ---
Author Organization [facility] Address [address] [place] [address] Care Team Providers Care Milliner Helper Name Role Phone Audrey Burleson Primary Care Provider Josh Hinkle [phone] REASON FOR VISIT Painful nail(s) aggrevated by shoes and causing difficulty standing/walking. MEDICATIONS Medication SIG (Take, Route, Frequency, Duration) Notes Start Date End Date Status Voltaren 1 % as directed Externally Active Encounters Encounter Location Date Provider Diagnosis [facility] [address] [place] [address] 01/12/2023 Josh Orellana Plantar fascial fibromatosis M72.2 ; Tinea unguium B35.1 ; Pain in right toe(s) M79.674 ; Pain in left toe(s) M79.675 ; Ingrowing nail L60.0 ; Primary osteoarthritis, left ankle and foot M19.072 ; Primary osteoarthritis, right ankle and foot M19.071 ; Hallux valgus (acquired), right foot M20.11 ; Other hammer toe(s) (acquired), left foot M20.42 and Other hammer toe(s) (acquired), right foot M20.41 ASSESSMENTS Encounter Date Diagnosis Assessment Notes Treatment Notes Treatment Clinical Notes 01/12/2023 Plantar fascial fibromatosis (ICD-10 - M72.2) 01/12/2023 Tinea unguium (ICD-10 - B35.1) 01/12/2023 Pain in right toe(s) (ICD-10 - M79.674) 01/12/2023 Pain in left toe(s) (ICD-10 - M79.675) 01/12/2023 Ingrowing nail (ICD-10 - L60.0) 01/12/2023 Primary osteoarthritis, left ankle and foot (ICD-10 - M19.072) 01/12/2023 Primary osteoarthritis, right ankle and foot (ICD-10 - M19.071) 01/12/2023 Hallux valgus (acquired), right foot (ICD-10 - M20.11) 01/12/2023 Other hammer toe(s) (acquired), left foot (ICD-10 - M20.42) 01/12/2023 Other hammer toe(s) (acquired), right foot (ICD-10 - M20.41) PLAN OF TREATMENT Medication Medication Name Sig Start Date Stop Date Notes Voltaren 1 % as directed Externally Next Appt Details Follow Up: 2 Months, Reason: Procedure Notes * Category Sub-Category Detail Notes Debride Nail 6-10 Nail debridement Nail debridem ent performed extensively to reduce/remove overall nail length and girth, subungual debris, and necrotic tissue, by manual and electrical means with use of a nail nipper and/or dremel, to more viable healthy nail plate or bed tissue 6-10. Silver nitrate used for any petechial bleeding as necessary. Patient chooses, no pharmaceutical tx (35953) Progress Notes * Examination Category Sub-Category Detail Notes Ingrown Nail INSPECTION: Reveals nail inc urvation, pain on palpation, groove hypertrophy, groove ischemia, Medial nail border, TA Neurological SENSORY: Neurological exa m reveals intact sensorium, pain sensation normal, vibration sensation intact, pinprick sensation is normal in the lower extremities, pt denies, anesthesia, burning, paresthesia, tingling, B/L BABINSKI REFLEX: Absent, B/L TINEL'S COMPRESSION: Negative tarsal fay salima, emmett pedis, and medial calcaneal nerves, B/L Dermatologic SKIN FINDINGS: Skin exam reveal s Keratotic lesion(s) located at, Medial plantar, IPJ, SUB MTH (s), 1, 5, B/L , SUB 5th MTBase, B/L , Skin shows sign(s) of, cyst(s) dorso-lateral t7 dipj Orthopedic GAIT ABNORMALITY: pronated, abdu cted, B/L MUSCLE STRENGTH: 5/5 all groups in a symmetrical fashion B/L General Examination GENERAL APPEARANCE: pleasant , alert, well nourished, well developed, well hydrated, with good attention to hygene/body habitus, and in no acute distress ORIENTED: person,place, and ti me Vascular DP PULSES(B): 2/4, B/L PT PULSES(B): 2/4, B/L CAPILLARY FILL TIME: 3 secs. per digit, B/L TEMPERTURE GRADIENT(C): warm to cool, pr oximal to distal, B/L TROPHIC CONDITION-TEXTURE/ELASTICITY/TURGOR/HAIR GROWTH(B): normal, B/L EDEMA(C): no edema Nails NAILS are: elongated,overgr own,dystrophic,greater than 3mm thick,discolored and friable with crumbly malodorous subungual debris, with pain on palpation, 1-5 Right foot, TA, T4 History and Physical Notes * HPI (History of Present Illness) Category Sub-Category Detail Notes Heel pain Nature: aching, tenderne ss Location: plantar, Arch, LEFT Course: resolved Toe pain Nature: swelling, stiffn ess, inflammed Location: Great toe, 3rd toe, Right foot Duration: several months Onset/Cause: gradual Course: worse , progressive Aggravated by: shoes, any pressure Treatments: bracing/splinting/pa dding Severity/Quality: severe Painful Nails Pt States Last PCP Visit: Date:: 022
--- OUTSIDE RECORDS SUMMARY | 2024-04-08 07:02 | XMS_ITS | Patient Health Record ---
Author Organization [facility] Address [address] [facility] [place] [address] Care Team Providers Care Sales Assistants And Salespersons Name Role Phone Audrey Burleson Primary Care Provider Josh Hinkle Unavailable [phone] ALLERGIES Allergen (clinical drug ingredient) Drug/Non Drug Allergy documented on EMR Reaction Allergy Type Onset Date Status erythromycin Erythromycin hives Drug Allergy A ctive Iodinated contrast media (substance) Iodinated Diagnostic Agents dizziness, difficulty breathing Drug Allergy Active REASON FOR REFERRAL No Information MEDICATIONS Medication SIG (Take, Route, Frequency, Duration) Notes Start Date End Date Status Levothyroxine Sodium 75 MCG 1 tablet in the morning on an empty stomach Orally Once a day for 30 day(s) Active Metoprolol Succinate 25 MG 1 capsule Orally Once a day for 30 day(s) Active Venlafaxine HCl 37.5 MG 1 tablet with fo od Orally Once a day for 30 day(s) 75mg/150mg Active Work Note . . . patient must wear athletic shoes with orthoses to work until further notice Active buPROPion HCl ER (XL) 150 MG 1 tablet in the morning Orally Once a day for 30 day(s) Not-Taking Citalopram Hydrobromide 20 MG 1 tablet Orally Once a day for 30 day(s) Not-Taking Voltaren 1 % as directed Externally Active IMMUNIZATIONS Vaccine Route Administration Date Status Comme nts COVID-19 Pfizer BioNTech Vaccine Unknown 09/24/2021 Administered 1st 05/26/2020 2nd 08/17/2020 3rd 08/24/2020 SOCIAL HISTORY Tobacco Use: Social History Observation Description Date Details (start date - stop date) Never Smoker NA - NA Sex Assigned At : Social History Observation Description Sex Assigned At Unknown Tobacco Use/Smoking Question Answer Notes Are you a: nonsmoker Additional Findings: Tobacco Non-User Current no n-smoker Alcohol Screen Question Answer Notes Did you have a drink containing alcohol in the p ast year? No Points 0 Interpretation Negative Tobacco use other than smoking: Question Answer Notes Are you an other tobacco user? No PROBLEMS Problem Type ICD Code Onset Dates Problem Status W/U Status Risk SNOMED Code Notes Problem Primary osteoarthrit is, right ankle and foot (M19.071) Active confirmed Localized, prim riya osteoarthritis of the ankle and/or foot (998199456) Problem Primary osteoarthrit is, left ankle and foot (M19.072) Active confirmed Localized, prim riya osteoarthritis of the ankle and/or foot (484796956) Problem Hallux valgus (acquired), right foot (M20.11) Active confirmed Acquired hallux valgus (63856953) Problem Other hammer toe(s) (acquired), right foot (M20.41) Active confirmed Acquired hammer toe of right foot (1169612902390304) Problem Other hammer toe(s) (acquired), left foot (M20.42) Active confirmed Acquired hammer toe of left foot (4847391285019498) PLAN OF TREATMENT Pending Test Test Name Order Date X ray : Foot, left 3V 12/13/2021 X ray : Foot, right 3V 12/13/2021 Insurance Providers Payer Name Payer Address Payer Phone Subscriber Number Group Number Insured Name Patient Relationship to Insured Coverage Start Date Coverage End Date Blue Benefits [address] [address] [place] [address] [id number] Prema Mccollum Self - patient is the insured MEDICAL (GENERAL) HISTORY Medical History History ICD Code Anxiety osteoarthritis Back,Hip,and Knee pain Broken bones Cancer Depression Headaches/Migraines High blood pressure Reflux ( GERD) Sciatica chronic sinusitis thyroid nodule Measles Mumps Chicken pox Obesity covid-19 Surgical History Surgery Date(Month/Year) eye surgery 1960, 1965 hysterectomy, total 11/2017 thyroidectomy, partial 02/2021 Thyriod Biopsy 12/2021
--- OUTSIDE RECORDS SUMMARY | 2024-04-08 07:02 | XMS_ITS ---
Author Organization [facility] Address [address] [place] [address] Care Team Providers Care Community Service Officer Name Role Phone Audrey Burleson Primary Care Provider Josh Hinkle [phone] REASON FOR VISIT Painful nail(s) aggrevated by shoes and causing difficulty standing/walking. MEDICATIONS Medication SIG (Take, Route, Frequency, Duration) Notes Start Date End Date Status Voltaren 1 % as directed Externally Active Encounters Encounter Location Date Provider Diagnosis [facility] [address] [place] [address] 12/15/2022 Josh Orellana Plantar fascial fibromatosis M72.2 ; [...] Assessment Notes Treatment Notes Treatment Clinical Notes 12/15/2022 Plantar fascial fibromatosis (ICD-10 - M72.2) 12/15/2022 Tinea unguium (ICD-10 - B35.1) 12/15/2022 Pain in right toe(s) (ICD-10 - M79.674) 12/15/2022 Pain in left toe(s) (ICD-10 - M79.675) 12/15/2022 Ingrowing nail (ICD-10 - L60.0) 12/15/2022 Primary osteoarthritis, left ankle and foot (ICD-10 - M19.072) 12/15/2022 Primary osteoarthritis, right ankle and foot (ICD-10 - M19.071) 12/15/2022 Hallux valgus (acquired), right foot (ICD-10 - M20.11) 12/15/2022 Other hammer toe(s) (acquired), left foot (ICD-10 - M20.42) 12/15/2022 Other hammer toe(s) (acquired), right foot (ICD-10 [...] as necessary. Patient chooses, no pharmaceutical tx (17500) Progress Notes * Examination Category Sub-Category Detail [...]
--- OUTSIDE RECORDS SUMMARY | 2024-04-08 07:03 | XMS_ITS | Continuity of Care Document ---
Author Organization [facility] Address [address] [place] [address] ve [address] [place] [address]- Care Team Providers Care Lumite Injector Name Role Phone Andres Delacruz MD Primary Care Physician Encounter [facility] Date(s): 08/27/20 - 09/26/[address] [place] [address]- Attending Physician: Diane Portillo Admitting Physician: Diane Portillo Referring Physician: AdmtrDiane Allergies, Adverse Reactions, Alerts Substance Reaction Severity [...] 12/15/15 negat aysha with negative HPV from [place] records. Status post total hysterectomy 11/09/17, the [...]
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
--- OUTSIDE RECORDS SUMMARY | 2024-04-08 07:03 | XMS_ITS | Continuity of Care Document ---
Author Organization [facility] Address Unknown Care Team Providers Care Postulant Name Role Phone Andres Delacruz MD Primary Care Physician Encounter [facility] Date(s): 02/09/21 - 02/16/21 [facility] Encounter Diagnosis Nodule of right lobe of thyroid gland(Discharge Diagnosis) - 02/09/21 Attending Physician: Jose Garza Referring Physician: Andres Delacruz MD Allergies, Adverse Reactions, Alerts Substance Reaction Severity Status erythromycin HIVES Active Contrast Dye DIFFICULTY BREATHING Active Nuts Hives Filberts Active Medications citalopram 20 mg oral tablet 20 mg, 1, tablet, By Mouth, Daily in AM, # 30 tablet, Refills 0, Maintenance, 01/12/21 17:24:00 EDT, Partial fill upon patient request if the prescription is for a schedule II opioid drug. Start Date: 01/12/21 Status: Ordered Colace sodium 100 mg oral capsule 100 mg, 1, capsule, By Mouth, 2 times a day, PRN, # 20 capsule, Refills 0, Tot. Refills 0, Maintenance, for constipation, 01/25/21 17:18:00 EDT, Print Requisition, Partial fill upon patient request if the prescription is for a schedule II opioid drug. Start Date: 01/25/21 Status: Ordered hydrochlorothiazide 25 mg oral tablet 25 mg, 1, tablet, By Mouth, Daily in AM, # 30 tablet, Refills 0, Maintenance, 10/09/17 9:13:30 EDT Start Date: 10/09/17 Status: Ordered Ibuprofen 400 mg, By Mouth, Every 6 hours, PRN, Refills 0, Maintenance, as needed for pain, 11/02/17 15:53:39EDT Start Date: 11/02/17 Status: Ordered metoprolol 25 mg oral tablet, extended release 25 mg, 1, tablet, By Mouth, Daily in AM, # 30 tablet, Refills 0, Maintenance, 08/27/20 [...] EDT, Capsule Start Date: 11/09/17 Status: Ordered Vitamin D3 1000 intl units oral capsule 1 capsule = 25 mcg, By Mouth, Daily in AM, # 100 capsule, 0 Refills, Maintenance, 01/12/21 17:04:00EDT, Capsule, Partial fill upon patient request if the prescription is for a schedule II opioid drug. Start Date: 01/12/21 Status: Ordered Zinc 1 tablet, By Mouth, Daily in AM, 0 Refills, Maintenance, 01/12/21 17:25:00 EDT, Partial fill upon patient request if the prescription is for a schedule II opioid drug. Start Date: 01/12/21 Status: Ordered Problem List Condition Effective Dates Status Health Status Inform ant Last pap smear 12/15/15 negat aysha with negative HPV from [place] records. Status post total hysterectomy 11/09/17, the [...] Active Vulvar pain(Confirmed) Active Vestibulodynia suspected(Confirmed) Active Diagnosis Diagnosis Type Effective Dates Health Status Cl inical Service Informant Nodule of right lobe of thyroid gland Discharge Diagnosis 02/09/21 Social History Social History Type Response Smoking Status Never (less than 100 in lifetime) entered on: 11/27/18 Sex
--- OUTSIDE RECORDS SUMMARY | 2024-04-08 07:03 | XMS_ITS | Continuity of Care Document ---
Author Organization [facility] Address [address], [address] [place] [address]- Care Team Providers Care Cardiothoracic Anesthesia Technician Name Role Phone Andres Delacruz MD Primary [id number]ancisco [facility] [address] [place] [address]- [facility] Attending Physician: Carlos Alberto BETH, Hitesh Tang Referring Physician: Andres Delacruz MD Allergies, Adverse [...] 12/15/15 negat aysha with negative HPV from [place] records. Status post total hysterectomy 11/09/17, the [...]
--- OUTSIDE RECORDS SUMMARY | 2024-04-08 07:03 | XMS_ITS | Continuity of Care Document ---
Author Organization [facility] Address [address] [place] [address]- Care Team Providers Care Order Builder Name Role Phone Andres Delacruz MD Primary Care Physician [place] [facility] [place] 10/12/21 - 11/14/21 [facility] [address] [place] [address]- Attending Physician: Cameron Saldivar MD Admitting Physician: Cameron Saldivar MD Referring Physician: Andres Delacruz MD Allergies, Adverse [...] 12/15/15 negat aysha with negative HPV from [place] records. Status post total hysterectomy 11/09/17, the [...]
--- OUTSIDE RECORDS SUMMARY | 2024-04-08 07:03 | XMS_ITS | Continuity of Care Document ---
Author Organization [facility] Address [address] [place] [address]- Care Team Providers Care Assistant Account Executive Name Role Phone Andres Delacruz MD Primary Care Physician [place] [facility] [place]/25/21 - 01/25/[address] [address] Discharge Disposition: A-D/C Home Attending Physician: Lawrence Macario MD Admitting Physician: Lawrence Macario MD Referring Physician: Lawrence Macario MD Allergies, Adverse Reactions, Alerts Substance Reaction [...] opioid drug. Start Date: 08/27/20 Status: Ordered oxyCODONE 5 mg oral tablet 5 mg, 1, tablet, By Mouth, Every 6 hours, PRN, for 3 days, # 12 tablet, Refills 0, Tot. Refills 0, Acute 01/28/21 17:18:00 EDT, as needed for pain, 01/25/21 17:18:00 EDT, Print Requisition, Partial fill upon patient request if the prescription is for... Start Date: 01/25/21 Stop Date: 01/28/21 Status: Ordered Tylenol 325 mg oral capsule [...] 12/15/15 negat aysha with negative HPV from [place] records. Status post total hysterectomy 11/09/17, the [...] Active Vulvar pain(Confirmed) Active Vestibulodynia suspected(Confirmed) Active Procedures Procedure Date Related Diagnosis Body Site Status Right thyroid lobectomy, uni lateral; with or without isthmusectomy 01/25/21 Co mpleted Vital Signs Most recent to oldest [Reference Range]: 1 2 3 Height 172.72 cm (01/25/21:34 PM) 172.72 cm (01/12/21 6:13 PM) Weight 91.5 kg (01/25/21:34 PM) 89.55 kg (01/12/21 6:13 PM) Oxygen Saturation [94-100 %] 99 % (01/25/21 6:30 PM) 96 % (01/25/21 6:15 PM) 94 % (01/25/21 6:00 PM) Pulse Rate [55-90 bpm] 67 bpm (01/25/21:34 PM) Body Mass Index [18.5-24.99] 30.67 *>HHI* (01/25/21:34 PM) 30.02 *>HHI* (01/12/21 6:13 PM) Blood Pressure [90-138/55-84 mm Hg] 156/76mm Hg *H* (01/25/21 6:15 PM) 153/85mm Hg *H* (01/25/21 6:00 PM) 154/84mm Hg *H* (01/25/21 5:45 PM) Respiratory Rate [16-30 br/min] 15 br/min *L* (01/25/21 6:15 PM) 0 br/min *L* (01/25/21 6:00 PM) 13 br/min *L* (01/25/21 5:45 PM) Temperature [96.8-100.4 DegF] 98.3 DegF (01/25/21 6:15 PM) 97.2 DegF (01/25/21 5:00 PM) 98.0 DegF (01/25/21:34 PM) Liters per Minute 5 L/min (01/25/21 5:00 PM) Mode of Delivery (Oxygen) Room air (01/25/21 8:06 PM) Room air (01/25/21 6:30 PM) Room air (01/25/21 6:15 PM) Blood pressure sites Arm, right (01/25/21 5:00 PM) Arm, left (01/25/21 1:34 PM) Temperature Route Temporal (01/25/21 6:15 PM) Temporal (01/25/21 5:00 PM) Temporal (01/25/21 1:34 PM) Dry Weight 91.5 kg (01/25/21 1:34 PM) 89.55 kg (01/12/21 6:13 PM) Weight Obtained Via Standing scale (01/25/21 1:34 PM) Patient/family stated (01/12/21 6:13 PM) Dry Weight Obtained Via Standing scale (01/25/21 1:34 PM) Patient/family stated (01/12/21 6:13 PM) Social History Social History Type Response Smoking Status Never (less than 100 in lifetime) entered on: 11/27/18 Sex
--- OUTSIDE RECORDS SUMMARY | 2024-04-08 07:03 | XMS_ITS | Continuity of Care Document ---
Author Organization [facility] Address [address] [place] [address]- Care Team Providers Care Supervisor Electronics Processing Name Role Phone Andres Delacruz MD Primary Care Physician Encounter [facility] Date(s): 12/25/19 - 01/24/20 [facility] [address] [place] [address]- [facility] Attending Physician: Diane Portillo Admitting Physician: AdmtrDiane Referring Physician: AdmtrDiane Allergies, Adverse Reactions, Alerts [...] 12/15/15 negat aysha with negative HPV from [place] records. Status post total hysterectomy 11/09/17, the [...]
--- OUTSIDE RECORDS SUMMARY | 2024-04-08 07:03 | XMS_ITS | Continuity of Care Document ---
Author Organization [facility] Address Unknown Care Team Providers Care Aquatics Group Fitness Instructor Name Role Phone Andres Delacruz MD Primary Care Physician Encounter [facility] Date(s): 02/09/21 - 03/11/[address] [facility] Attending Physician: Diane Portillo Admitting Physician: Diane Portillo Referring Physician: Admtr, Sami8 Allergies, Adverse Reactions, Alerts Substance Reaction Severity [...] 12/15/15 negat aysha with negative HPV from [place] records. Status post total hysterectomy 11/09/17, the [...]
--- OUTSIDE RECORDS SUMMARY | 2024-04-08 07:03 | XMS_ITS | Continuity of Care Document ---
Author Organization [facility] Address [address] [place] [address] Dr [address] [place] [address]- Care Team Providers Care Payroll Master Name Role Phone Jayme BETH, Andres Rodriguez Primary Care Physician Encounter [facility] Date(s): 11/03/20 - 12/03/[address] [place] [address]- Allergies, Adverse Reactions, Alerts Substance Reaction Severity [...] 12/15/15 negat aysha with negative HPV from [place] records. Status post total hysterectomy 11/09/17, the [...]
--- OUTSIDE RECORDS SUMMARY | 2024-04-08 07:03 | XMS_ITS | Continuity of Care Document ---
Author Organization [facility] Address [address] [place] [address], [address] [place] [address]- Care Team Providers Care Electrical Machine Builder Name Role Phone Andres Delacruz MD Primary Care Physician [phone] [id number] Date(s): 05/21/19 - 05/31/19 [facility] [address] [facility], [address] [place] [address]- Attending Physician: Diane Portillo Admitting Physician: Diane Portillo Referring Physician: Diane Portillo Allergies, Adverse Reactions, Alerts Substance Reaction Severity [...] 12/15/15 negat aysha with negative HPV from [place] records. Status post total hysterectomy 11/09/17, the [...]
--- OUTSIDE RECORDS SUMMARY | 2024-04-08 07:03 | XMS_ITS | Continuity of Care Document ---
Author Organization [facility] Address [address], [address] [place] [address]- Care Team Providers Care Civil Structural Designer Name Role Phone Jayme BETH, Andres Rodriguez Primary Care Physician [phone] [id number] Date(s): 09/16/19 - 10/17/19 [facility] Jonatanfrancisco Day[employer] [facility] [address] [facility], [address] [place] [address]- [facility] Attending Physician: Hitesh Carcamo MD Allergies, Adverse [...] 12/15/15 negat aysha with negative HPV from [place] records. Status post total hysterectomy 11/09/17, the [...]
--- OUTSIDE RECORDS SUMMARY | 2024-04-08 07:03 | XMS_ITS | Continuity of Care Document ---
Author Organization [facility] Address [address] [place] [address]- Care Team Providers Care Healthcare Business Analyst Name Role Phone Jayme BETH, Andres Rodriguez Primary Care Physician En[facility] Date(s): 10/15/21 - 11/14/21 [facility] [address] [place] [address]- Attending Physician: Diane Portillo Admitting Physician: AdmDiane cortez Referring Physician: AdmtrDiane Allergies, Adverse Reactions, Alerts [...] 12/15/15 negat aysha with negative HPV from [place] records. Status post total hysterectomy 11/09/17, the [...]
--- OUTSIDE RECORDS SUMMARY | 2024-04-08 07:03 | XMS_ITS | Continuity of Care Document ---
Author Organization [facility] Jeanne nMobile Tracing Servic[employer] [facility] Address [address] [place] [address], [address] [place] [address]- Care Team Providers Care Asphalt Still Operator Name Role Phone Andres Delacruz MD Primary Care Physician [phone] [id number] Date(s): 09/17/19 - 09/27/19 [facility] Jonatan BarbMobile Tracing Servicess [facility] [address], [address] [place] [address]- Attending Physician: Diane Portillo Admitting Physician: Diane [...] 12/15/15 negat aysha with negative HPV from [place] records. Status post total hysterectomy 11/09/17, the [...]
[2024-04-08 07:08] VITALS: BP 143/87; PULSE 98; RESP 16; TEMP 36.7; O2SAT 96; BMI 39.8
--- NOTE | 2024-04-08 07:29 | MHC.SHP ---
Pre-Procedural Eval Section A - 24 Hr Update-Section A only Date of Service: 04/08/24 The patient is an INPATIENT: No The patient has been examined within 24 hours of the surgical procedure. The History & Physical has been completed within 30 days and I have reviewed it.: No Section B - Complete if H&P > 30 days Chief Complaint: Surveillance of colon polyps Relevant Family History (Specify if Yes): No Relevant Social History: None Present Medications: see Short Stay Collaborative assessment Medical History: Significant History (Dysphagia Endometrial cancer HTN (hypertension) Multinodular thyroid Postoperative hypothyroidism Vitamin D deficiency) History of Previous Operations: Relevant previous surgery/procedure and date(s) (H/O colonoscopy History of endometrial biopsy Hx of eye surgery Hx of partial thyroidectomy Hx of total hysterectomy) Allergies: Allergies Allergy/AdvReac Type Severity Reaction Status Date / Time Iodinated Contrast Media Allergy Severe Anaphylaxis Verified 10/03/23 15:05 [IV Contrast Dye] erythromycin base Allergy Intermediate Hives Verified 10/03/23 15:05 [ERYTHROMYCIN BASE] Review of Systems Sugical H&P ROS: Negative: Constitution, Cardiovascular, Respiratory and Gastrointestinal Exam Surgical H&P Exam: Normal: Heart, Normal: Lungs, Normal: Extremities and Normal: Abdomen Plan Diagnosis/Plan: Unchanged I have reviewed the history and physical and performed a pertinent physical examination on my patient. No changes have occurred unless specified. Time Spent With Patient Time: Total time managing care of this patient today ____ minutes.
[2024-04-08] MEDS: Lactated Ringers 1,000 ML 80 ML IVCONT (07:58)
--- NOTE | 2024-04-08 08:41 | HO.ANESPROP2 ---
[facility] Active Problems Active Problems: All Active Problems Knee pain, right (Acute) Cough (Acute) Acute viral syndrome (Acute) IBS (irritable bowel syndrome) (Acute) Pre-op examination (Acute) Family history of polyps in the colon (Acute) Thoracic spondylosis (Acute) Lumbar spondylosis (Acute) Sensorineural hearing loss (Acute) GERD (gastroesophageal reflux disease) (Acute) Obesity (Acute) Paresthesia (Acute) Multinodular thyroid (Acute) Postoperative hypothyroidism (Acute) Dysphagia (Acute) HTN (hypertension) (Acute) Vitamin D deficiency (Acute) Past Medical History Medical History (Updated 04/04/24 @ 09:27 by Mary Thomas RN) JULIO (obstructive sleep apnea) Thoracic spondylosis Lumbar spondylolysis IBS (irritable bowel syndrome) GERD (gastroesophageal reflux disease) Postoperative hypothyroidism Dysphagia Endometrial cancer HTN (hypertension) Vitamin D deficiency Family History Family History Father High cholesterol Mother Dementia Sister Ovarian cancer Family history of problems with anesthesia: No Surgical History Surgical History H/O colonoscopy History of endometrial biopsy Hx of partial thyroidectomy Hx of eye surgery Hx of total hysterectomy History of Problems with Anesthesia: No Social History Social History Household Members: None Are you a primary vision care associate to a significant other at home: No Do you presently have visiting nurse or other home services: No Alcohol intake: never Patient Tobacco Use Status: Never used Tobacco Use of substances other than those prescribed or required for medical reasons: No Have you been hit, kicked, punched, or otherwise hurt by someone within the past year? If so, by whom?: No Are you DNR?: No Advance Directives: No Advance Directives Information Provided: Yes Recently lost weight without trying: No Meds Allergies Allergy/AdvReac Type Severity Reaction Status Date / Time Iodinated Contrast Media Allergy Severe Anaphylaxis Verified 10/03/23 15:05 [IV Contrast Dye] erythromycin base Allergy Intermediate Hives Verified 10/03/23 15:05 [ERYTHROMYCIN BASE] Active Medications: Current Medications Lactated Ringer's (Lr) 1,000 mls @ 80 mls/hr IVCONT .[id number] VISHNU Last Admin: 04/08/24 07:58 Dose: 80 mls/hr Home Medications ?Medication ?Instructions ?Recorded ?Confirmed ?Last Taken ?Type venlafaxine 75 mg tablet,extended 75 mg PO DAILY 10/03/23 04/04/24 Unknown History release 24 hr methylphenidate HCl 10 mg tablet 10 mg PO BID 12/13/23 04/04/24 Unknown History Exam Height,Weight and Vital Signs: Height 5 ft 8 in Weight 118.841 kg Last Vital Signs Temp 98.1 F 04/08/24 07:08 Pulse 98 04/08/24 07:08 Resp 16 04/08/24 07:08 BP 143/87 H 04/08/24 07:08 Pulse Ox 96 04/08/24 07:08 O2 Del Method Room Air 04/08/24 07:08 Airway Mallampati Class: II (caps throughout) TM Dist: >3cm Neck ROM: Full Heart: rrr Lungs: cta Assessment and Plan Assessment Anesthesia Assessment: Anesthesia Plan Discussed and Chart Reviewed Final Anesthetic Review Family History of Problems with Anesthesia: No History of Problems with Anesthesia: No NPO: Yes ASA Class: II Final Preanesthetic Review: No Changes in Pt Med Stat, Meds/Allgs Chart Reviewed and Consent Obtained/Reviewed Patient Risk: Low Procedure Risk: Low Anesthetic Plan Anesthetic Plan: MAC: Disposition: Standard PACU
--- NOTE | 2024-04-08 09:15 | HO.OPN-COLON ---
Colonoscopy Operative Note Operative Note Date of Service: 04/08/24 Narrative: COLONOSCOPY TILL CECUM WITH SNARE POLYPECTOMY Pre-op diagnosis: Colon cancer screening, family history of colon polyps. Post-op diagnosis:? Colon polyps, Diverticulosis. Endoscopist:? Jose White MD Anesthesia:?MAC Consent: Indications for the procedure and potential complications of bleeding, perforation, reaction to medications and missed diagnosis were discussed with the patient and informed consent was obtained. Instrument: Olympus PCF H 190 L variable stiffness pediatric colonoscope Monitoring: Vital signs and clinical assessment, intermittent blood pressure monitoring, continuous EKG monitoring, Pulse oximetry and Carbon Dioxide monitoring were done throughout the procedure. Please see anesthesia flowsheet. Colon withdrawl time was 17 minutes. Procedure: The patient was placed in the left lateral decubitis position and pre-procedure medications were administered. After a digital rectal examination of the ano-rectum, the video colonoscope was inserted into the rectum and advanced through the colon to the cecum. The colonoscope was slowly withdrawn in a retrograde panoramic fashion and the colon mucosa was carefully examined including a retroflexed view of the rectum. Findings and interventions are described below. Procedure Difficulty: without difficulty Findings: Terminal Ileum: Not evaluated Cecum: A 5 mm sessile polyp removed with a cold snare Ascending Colon: Two 5-6 mm sessile polyp - removed with a cold snare Transverse Colon: Normal Descending Colon: Normal Sigmoid Colon: Moderate diverticulosis Rectum: Normal Ano-rectum: Normal Colon preparation: Excellent, after some irrigation. [place] Bowel Preparation Scale Right colon; 3 Transverse colon: 3 Left colon; 3 (0 = Unprepared colon segment with mucosa not seen due to solid stool that cannot be cleared. 1 = Portion of mucosa of the colon segment seen, but other areas of the colon segment not well seen due to staining, residual stool and/or opaque liquid. 2 = Minor amount of residual staining, small fragments of stool and/or opaque liquid, but mucosa of colon segment seen well. 3 = Entire mucosa of colon segment seen well with no residual staining, small fragments of stool or opaque liquid) Impression and Post Procedure Diagnosis: Colonoscopy Findings: Three small polyps were removed Moderate diverticulosis seen in the sigmoid colon Plan: Pt has a FU appointment on 04/23/24 with Mariana Coronado NP. Repeat Colonoscopy in 3-5 years if polyps are adenomatous and 10 year if polyps are hyperplastic. Above findings were reviewed with the patient and relevant handouts were given and the discharge area.
[2024-04-08 09:16] VITALS: BP 111/59; PULSE 71; RESP 16; TEMP 36.2; O2SAT 95
[2024-04-08 09:31] VITALS: BP 139/75; PULSE 72; RESP 16; TEMP 36.2; O2SAT 97
== END 2024-04-08 09:52 | disposition home or self-care (01) ==
PROVIDERS: PCP Nurse Practitioner Family; Visit Provider Internal Medicine Gastroenterology
PROC: 0DJD8ZZ Inspection of Lower Intestinal Tract, Via Natural or Artificial Opening Endoscopic (ICD-10-PCS; CPT 45378; principal; 2024-04-08 08:30)
DX: Z12.11 Encounter for screening for malignant neoplasm of colon (principal); D12.0 Benign neoplasm of cecum; D12.2 Benign neoplasm of ascending colon; K57.30 Diverticulosis of large intestine without perforation or abscess without bleeding; Z83.719 Family history of colon polyps, unspecified; I10 Essential (primary) hypertension; E55.9 Vitamin D deficiency, unspecified; K21.9 Gastro-esophageal reflux disease without esophagitis; E04.2 Nontoxic multinodular goiter; E89.0 Postprocedural hypothyroidism; Z85.42 Personal history of malignant neoplasm of other parts of uterus
CPT/HCPCS: 45385; 88305; J2003; J2704

== ENCOUNTER → 2024-04-08 07:00 | Outpatient (BNV) | payer OTHER, SELFPAY | PROVIDERS: PCP Nurse Practitioner Family; Visit Provider Internal Medicine Gastroenterology | DX: Z12.11 Encounter for screening for malignant neoplasm of colon (principal); Z83.719 Family history of colon polyps, unspecified; D12.0 Benign neoplasm of cecum; D12.2 Benign neoplasm of ascending colon | CPT/HCPCS: 45385 ==

== ENCOUNTER 2024-04-16 16:01 | Outpatient (REF) | payer OTHER, SELFPAY ==
--- NOTE | ~2024-04-16 | MM_ITS ---
EXAMINATION: MM SCREENING DIGITAL BREAST TOMOSYNTHESIS, BILATERAL CLINICAL INFORMATION: Screening. Asymptomatic. COMPARISON: Mammography: Comparison is made with available priors TECHNIQUE: Digital breast mammography with tomosynthesis is performed in both the craniocaudal and mediolateral oblique views along with computer-aided detection (CAD). FINDINGS: There are scattered areas of fibroglandular density (ACR BI-RADS breast composition Category b). Left: There are no significant masses, abnormal calcifications, or other abnormalities. Right: Focal asymmetry lower inner breast anterior depth. No suspicious calcifications or other abnormal findings. MM/MM tomosynthesis screening BI IMPRESSION: Additional imaging is recommended ASSESSMENT: BI-RADS BI-RADS 0 - Incomplete: Needs additional Imaging. RECOMMENDATION: 1. Additional views of the right breast 2. Targeted ultrasound if warranted after review of the additional views. 3. Radiology department staff will contact the patient for additional imaging. Additional Imaging required This examination should not preclude the clinical evaluation of a suspicious palpable abnormality. This patient's information was entered into a reminder system with a target due date for their next mammogram. Electronically signed by: Linda Brownlee DO 04/24/2024 03:58 PM JONG
== END 2024-04-16 16:02 | disposition home or self-care (01) ==
LOC: HO.MAMMO 16:01
PROVIDERS: PCP Internal Medicine; Visit Provider Nurse Practitioner Family
DX: Z12.31 Encounter for screening mammogram for malignant neoplasm of breast (principal)
CPT/HCPCS: 77063; 77067

== ENCOUNTER → 2024-04-16 16:30 | Outpatient (BNV) | payer OTHER, SELFPAY | PROVIDERS: PCP Internal Medicine; Visit Provider Internal Medicine | DX: Z12.31 Encounter for screening mammogram for malignant neoplasm of breast (principal) | CPT/HCPCS: 77063; 77067 ==

== ENCOUNTER 2024-04-29 07:59 | Outpatient (REF) | payer OTHER, SELFPAY ==
--- NOTE | ~2024-04-29 | MM_ITS ---
EXAMINATION: MM DIAGNOSTIC DIGITAL BREAST TOMOSYNTHESIS, RIGHT US BREAST LIMITED, RIGHT MAMMOGRAPHY: CLINICAL INFORMATION: Evaluate focal asymmetry right breast 5-6:00 axis middle depth. COMPARISON: Mammography: 04/16/2024, and available priors. TECHNIQUE: Digital breast tomosynthesis is performed in the following views: 3-D spot compression right CC and right MLO views. Computer-aided diagnosis was used for this study. This was followed by targeted right breast ultrasound. FINDINGS: There are scattered areas of fibroglandular density (ACR BI-RADS breast composition Category b). Diagnostic views demonstrate a persistent circumscribed oval mass measuring approximately 4 mm, 6:00 axis right breast, middle depth. We will evaluate this with ultrasound. ULTRASOUND: CLINICAL INFORMATION: As above. COMPARISON: None relevant. TECHNIQUE: Targeted sonographic evaluation was performed using a high frequency linear transducer. Attention was given to the right breast 4-7 o'clock axis, to include the mammographic area of concern. Selected archived documentation. FINDINGS: RIGHT BREAST: There is a 3 mm simple cyst in the right breast 6:00 axis, 2 cm from the nipple, correlating well with the mammographic finding. This is benign and no further follow-up recommended. There are no additional abnormalities. MM/MM tomosynthesis added views R IMPRESSION: 1. There are no findings suspicious for malignancy in the right breast. 2. There is a small simple cyst measuring 3 mm in the 6:00 axis of the right breast, benign. No further follow-up recommended. 3. Recommend the patient return to routine annual screening in one year. OVERALL ASSESSMENT: Mammography: BI-RADS 2 - Benign Findings Ultrasound: BI-RADS 2 - Benign Findings RECOMMENDATION: 1 year F/U This patient's information was entered into a reminder system with a target due date for their next mammogram. Electronically signed by: North Mccall MD 04/29/2024 09:27 AM JONG HEAD
== END 2024-04-29 08:00 | disposition home or self-care (01) ==
LOC: HO.MAMMO 07:59
PROVIDERS: Absent Provider Nurse Practitioner Family; PCP Internal Medicine; Visit Provider Internal Medicine
DX: N64.89 Other specified disorders of breast (principal)
CPT/HCPCS: 76642; 77061; 77065

== ENCOUNTER → 2024-04-29 08:30 | Outpatient (BNV) | payer OTHER, SELFPAY | PROVIDERS: Absent Provider Nurse Practitioner Family; PCP Internal Medicine; Visit Provider Radiology Diagnostic Radiology | DX: R92.8 Other abnormal and inconclusive findings on diagnostic imaging of breast (principal) | CPT/HCPCS: 76642; 77061; 77065 ==

== ENCOUNTER 2024-06-10 07:04 | Outpatient (REF) | payer OTHER, SELFPAY ==
[2024-06-10 09:33] LABS: Free T4 (Free Thyroxine) 1.13 ng/dL (0.71-1.85); Thyroid Stimulating Hormone 4.29 uIU/mL (0.32-4.0)
== END 2024-06-10 07:05 | disposition home or self-care (01) ==
LOC: HO.LAB 07:04
PROVIDERS: PCP Nurse Practitioner Family; Visit Provider Internal Medicine Endocrinology, Diabetes & Metabolism
DX: E89.0 Postprocedural hypothyroidism (principal)
CPT/HCPCS: 36415; 84439; 84443

== ENCOUNTER 2024-06-13 07:53 | Outpatient (AMB) | payer OTHER, SELFPAY ==
--- NOTE | 2024-06-13 07:57 | A.OFFVIS_ITS ---
Vital Signs 06/13/24 07:58 Height 5 ft 8 in Weight 263 lb 3.711 oz BMI 40.0 BP 112/66 Blood Pressure Location Rt brachial Position Sitting Pulse 82 Pulse Source Pulse Oximeter Intake Visit Reasons: f/u hypothyroidism/ MNG Intake Note: Patient present today for Hypothyroidism follow up. Occupational Therapy Supervisor Required: No Accompanied by: Self / Same As Patient Allergies Iodinated Contrast Media [IV Contrast Dye] Allergy (Severe, Verified 06/13/24 08:01) Anaphylaxis erythromycin base [ERYTHROMYCIN BASE] Allergy (Intermediate, Verified 06/13/24 08:01) Hives Medication List - Last Reconciled 06/13/24 by Iggy Argueta MD diclofenac sodium 75 mg PO BID 10 days levothyroxine 100 mcg PO DAILY methylphenidate HCl 10 mg PO BID metoprolol succinate ER 25 mg PO DAILY venlafaxine ER 75 mg PO DAILY HPI Comments Details: 64 YO F who is seen in F/U for a multinodular thyorid S/P a R hemithyroidectomy 01/25/2021 now with postoperative hypothyroidism. Patient last saw Dr. Joy 11/28/2022 Was initially diagnosed with a multinodular thyroid in February 2020 with her thyroid US revealing multiple bilateral large nodules. She had presented to the ED due to inability to move her neck, which was thought to be due to tetanus. She had a CT of the neck which revealed a multinodular thyroid. She subsequently had a thyroid US which is detailed below. She was then referred to Endocrinology. 05/14/2020 she underwent FNA biopsy of her RLP 2.9 cm and RMP 1.4 cm nodules both with Benign ([place] Category II) cytology. At the time of the biopsy she was noted to have a large goiter that did appear to extend substernally. She was complaining of compressive symptoms, and underwent a R hemithyroidectomy by Dr. Lawrence Macario 01/25/2021. Surgical path was benign. There was incidentally 1 intrathyroidal parathyroid which was removed. Postoperatively she developed hypothyroidism. S he was started on levothyroxine and is currently using levothyroxine 75 mcg PO daily. She was then noted to have a LLP 1.1 cm thyroid nodule, and underwent FNA biopsy of this 11/12/2021 with benign (bethesda category II) cytology. She does report weight gain of 50 lbs since the surgery. She reports dysphagia has resolved. She does report being present in [place] during the [place] incident. She did not receive iodine prophylaxis. She denies any Family history of thyroid cancer. Thyroid US: 05/10/2021 SIZE: Measurements of the solitary left thyroid lobe and nodules are given in sagittal, anteroposterior and transverse dimensions respectively. Right Thyroid Lobe: Surgically removed. Left Thyroid Lobe: 4.2 x 1.1 x 1.1 cm, volume 2.7 mL. Previously 4.2 x 1.1 x 1.2 cm, volume 2.9 mL. Parenchyma: The gland echotexture is heterogeneous. Thyroid vascularity is normal. Isthmus: Surgically removed. Estimated total number of nodules greater than or equal to 1 cm: 1. Career Developer nodules are described as follows: 1.? Location: Left superior. ?? ? Size: 0.31 x 0.29 x 0.4 cm, volume 0.02 mL. ?? ? Previously: 0.42 x 0.33 x 0.4 cm, volume 0.02 mL. ?? ? Nodule characteristics: ?? ? Composition: Solid (2). ?? ? Echogenicity: Hyperechoic (1). ?? ? Shape: Not taller than wide (0). ?? ? Margins: Smooth (0). ?? ? Echogenic Foci: None (0). ? ACR TI-RADS total points: 3 Previous: n/a ?? ? ACR TI-RADS category: 3 Previous: n/a ? Significant change in size (>/= 20% in 2 dimensions and minimal increase of 2 mm or 50% or greater increase in volume): No ?? ? Change in features: No ?? ? Change in ACR TI-RADS risk category: n/a 2.? Location: Left superior. ?? ? Size: 0.38 x 0.34 x 0.51 cm, volume 0.03 mL. ?? ? Previously: 0.7 x 0.51 x 0.5 cm, volume 0.09 mL. ?? ? Nodule characteristics: ?? ? Composition: Solid (2). ?? ? Echogenicity: Hyperechoic (1). ?? ? Shape: Not taller than wide (0). ?? ? Margins: Smooth (0). ?? ? Echogenic Foci: None (0). ? ACR TI-RADS total points: 3 Previous: n/a ?? ? ACR TI-RADS category: 3 Previous: n/a ? Significant change in size (>/= 20% in 2 dimensions and minimal increase of 2 mm or 50% or greater increase in volume): No ?? ? Change in features: No ?? ? Change in ACR TI-RADS risk category: n/a 3.? Location: Left mid. ?? ? Size: 0.61 x 0.48 x 0.61 cm, volume 0.09 mL. ?? ? Previously: 0.71 x 0.51 x 0.59 cm, volume 0.11 mL. ?? ? Nodule characteristics: ?? ? Composition: Solid/almost completely solid (2). ?? ? Echogenicity: Hypoechoic (2). ?? ? Shape: Not taller than wide (0). ?? ? Margins: Smooth (0). ?? ? Echogenic Foci: None (0). ? ACR TI-RADS total points: 4 Previous: n/a ?? ? ACR TI-RADS category: 4 Previous: n/a ? Significant change in size (>/= 20% in 2 dimensions and minimal increase of 2 mm or 50% or greater increase in volume): No ?? ? Change in features: No ?? ? Change in ACR TI-RADS risk category: n/a 4.? Location: Left inferior. ?? ? Size: 1.1 x 0.74 x 0.86 cm, volume 0.36 mL. ?? ? Previously: 1.3 x 0.7 x 0.81 cm, volume 0.39 mL. ?? ? Nodule characteristics: ?? ? Composition: Solid/almost completely solid (2). ?? ? Echogenicity: Hyperechoic (1). ?? ? Shape: Not taller than wide (0). ?? ? Margins: Smooth (0). ?? ? Echogenic Foci: None (0). ? ACR TI-RADS total points: 3 Previous: n/a ?? ? ACR TI-RADS category: 3 Previous: n/a ? Significant change in size (>/= 20% in 2 dimensions and minimal increase of 2 mm or 50% or greater increase in volume): No ?? ? Change in features: No ?? ? Change in ACR TI-RADS risk category: n/a NODES: No lymphadenopathy is seen in the tissue surrounding the thyroid gland. CT Neck: 06/12/2020 FINDINGS: The right lobe of the thyroid gland is enlarged measuring 6 x 3 x 3 cm in sagittal AP and transverse dimension. The left lobe of the thyroid gland is normal in size measuring 3.6 x 1.2 x 1.5 cm in sagittal AP and transverse dimension. There are multiple bilateral thyroid nodules. The largest thyroid nodule in the mid to lower pole of the right lobe measures approximately 2.8 x 2.8 x 2.3 cm, appears complex cystic and partially calcified. No substernal extension is seen. No tracheal impingement or displacement is seen. There is food seen in the cervical and visualized thoracic esophagus. There are no enlarged lymph nodes. The visualized intracranial structures are normal. The visualized orbits, paranasal sinuses, mastoid air cells and middle ears are clear. Temporomandibular joints are normal. Salivary glands are normal. The nasopharynx, oropharynx and hypopharynx are normal. There is multilevel degenerative spondylosis, degenerative disc disease and facet arthritis. There is curvature of the lower cervical and upper thoracic spine to the right. CT/CT soft tissue neck wo con IMPRESSION: Enlarged right thyroid lobe. Bilateral thyroid nodules. The largest nodule is in the mid and lower pole of the right lobe, measures 3.6 x 1.2 x 1.5 cm, appears complex cystic with calcifications. No mass effect on the trachea or deviation is seen. The cervical and visualized thoracic esophagus is filled with food. Clinical correlation is recommended, i.e., has the patient recently eaten? Labs: Laboratory Tests 10/16/21 10:09 TSH 3.61 currently on 100 mcg levothyroxine for mos . Claims compliance with the levothyroxine except for weekends [facility] Medical History (Updated 04/04/24 @ 09:27 by Mary Thomas RN) JULIO (obstructive sleep apnea) Thoracic spondylosis Lumbar spondylolysis IBS (irritable bowel syndrome) GERD (gastroesophageal reflux disease) Postoperative hypothyroidism Dysphagia Endometrial cancer HTN (hypertension) Vitamin D deficiency Surgical History H/O colonoscopy History of endometrial biopsy Hx of partial thyroidectomy Hx of eye surgery Hx of total hysterectomy Family History Father High cholesterol Mother Dementia Sister Ovarian cancer Social History Household Members: None Are you a primary direct care supervisor to a significant other at home: No Do you presently have visiting nurse or other home services: No Alcohol intake: never Patient Tobacco Use Status: Never used Tobacco Physical Exam Vital Signs: Last Vital Signs Pulse 82 06/13/24 07:58 BP 112/66 06/13/24 07:58 BMI result Body Mass Index 40.0 Const Other: Healed scar status post right lobectomy. Left lobe without the presence of any palpable nodules Assessment & Plan Assessment & Plan (1) Multinodular thyroid: Code(s): E04.2 - Nontoxic multinodular goiter Category: Medical Plan: This is a 63-year-old white female with a history of multinodular goiter status post right lobectomy with benign cytology left subcentimeter nodules. She is currently on 100 mcg levothyroxine. She appears to be clinically euthyroid but has increased TSH level Plan is to Recheck TSH and free T4 in 6 weeks time once patient is consistent in taking levothyroxine each day and titrate Synthroid accordingly. . With regards to the multinodular goiter will have patient follow up with Dr. Head an automobile mechanic apprentice in our practice with expertise in thyroid ultrasound (2) Postoperative hypothyroidism: Code(s): E89.0 - Postprocedural hypothyroidism Category: Medical Plan: As per multinodular goiter Orders: Orders Thyroid Stimulating Hormone 6 Weeks E89.0 - Postprocedural hypothyroidism Free T4 (Free Thyroxine) 6 Weeks E89.0 - Postprocedural hypothyroidism Coding Level of Care Code Est Pt Level 3 (83887) Diagnoses Multinodular thyroid E04.2 Postoperative hypothyroidism E89.0
[2024-06-13 07:58] VITALS: BP 112/66; PULSE 82; BMI 40.0
== END 2024-06-13 08:28 | disposition home or self-care (01) ==
PROVIDERS: PCP Internal Medicine; Visit Provider Internal Medicine Endocrinology, Diabetes & Metabolism
DX: E04.2 Nontoxic multinodular goiter (principal); E89.0 Postprocedural hypothyroidism
CPT/HCPCS: 99213

== ENCOUNTER 2024-06-22 10:00 | Outpatient (REF) | payer OTHER, SELFPAY ==
--- NOTE | ~2024-06-22 | XR_ITS ---
CLINICAL HISTORY: M25.562 - Pain in left knee. S p fall. Four views of the left knee Comparison: None Findings: No fractures or dislocations. Mild degenerative changes. No joint effusion. No radiopaque foreign body. IMPRESSION: 1. No acute findings. This document has been electronically signed by: Tristan Donaldson MD on 06/22/2024 12:42:34
--- NOTE | ~2024-06-22 | XR_ITS ---
CLINICAL HISTORY: Pain in left elbow. S p fall 3 view left elbow Comparison: None Findings: No acute fractures or dislocations. No significant arthritic change or erosions. No joint effusion. No radiopaque foreign body. IMPRESSION: 1. No acute findings This document has been electronically signed by: Tristan Donaldson MD on 06/22/2024 12:44:08
== END 2024-06-22 10:01 | disposition home or self-care (01) ==
LOC: HO.HMGCX 10:00
PROVIDERS: PCP Nurse Practitioner Family; Visit Provider Family Medicine
DX: M25.562 Pain in left knee (principal); M25.522 Pain in left elbow
CPT/HCPCS: 73080; 73564

== ENCOUNTER 2024-06-22 10:00 | Outpatient (AMB) | payer OTHER, SELFPAY ==
--- NOTE | 2024-06-22 10:37 | MHC.OFFWIV ---
Intake Vital Signs 06/22/24 10:44 Height 5 ft 8 in Weight 263 lb BMI 40.0 BP 112/76 Blood Pressure Location Lt brachial Position Sitting Pulse 83 Pulse Source Pulse Oximeter Temp 97.9 F Temp Source Oral Pulse Oximetry (%) 98 Oxygen Delivery Method Room Air Intake Visit Reasons: EP LT side injury due to fall ~ arm, elbow, knee Intake Note: pt is here for left side injury due to fall off steps, arm/knee/and elbow pain Patient Tobacco Use Status: Never used Tobacco Allergies Iodinated Contrast Media [IV Contrast Dye] Allergy (Severe, Verified 06/22/24 10:44) Anaphylaxis erythromycin base [ERYTHROMYCIN BASE] Allergy (Intermediate, Verified 06/22/24 10:44) Hives Do you need a note to return to daycare/school/sports/work: No HPI EP LT side injury due to fall ~ arm, elbow, knee HPI Details Patient had mechanical fall from a step at her sister's house. No preceding dizziness or unsteadiness. Patient who fell on to left knee, left elbow and then bumped her head as well. No loss of consciousness. My fogginess Left elbow had full range of motion yesterday but now decreased range of motion and pain She was able to bear weight on her legs immediately afterwards. Has significant swelling and pain at left knee as well [facility] Medical History (Updated 06/22/24 @ 11:46 by Cameron Hartman MD) JULIO (obstructive sleep apnea) Thoracic spondylosis Lumbar spondylolysis IBS (irritable bowel syndrome) GERD (gastroesophageal reflux disease) Postoperative hypothyroidism Dysphagia Endometrial cancer HTN (hypertension) Vitamin D deficiency Surgical History H/O colonoscopy History of endometrial biopsy Hx of partial thyroidectomy Hx of eye surgery Hx of total hysterectomy Family History Father High cholesterol Mother Dementia Sister Ovarian cancer Social History Household Members: None Are you a primary childcare worker to a significant other at home: No Do you presently have visiting nurse or other home services: No Alcohol intake: never Patient Tobacco Use Status: Never used Tobacco Review of Systems Const Details: See HPI Physical Exam Vital Signs: Last Vital Signs Temp 97.9 F 06/22/24 10:44 Pulse 83 06/22/24 10:44 BP 112/76 06/22/24 10:44 Pulse Ox 98 06/22/24 10:44 Oxygen Delivery Method Room Air 06/22/24 10:44 BMI result Body Mass Index 40.0 HEENT Other: Head appears atraumatic. Eyes Other: PERRLA Neck Other: Normal range of motion. Nontender Back/Spine/Pelvis Other: Normal range of motion. Nontender Skin Other: Abrasions at left elbow and anterior left knee Extrem Other: Significant swelling, pain and decreased range of motion at left elbow Significant swelling and tenderness at left knee and particularly over left patella. Assessment & Plan Assessment & Plan (1) Concussion: Code(s): S06.0XAA - Concussion with loss of consciousness status unknown, initial encounter Plan: Likely mild concussion Advise rest while symptomatic Afterwards transition to symptoms limited activities. Will give her a note to be out of work this coming week. May return sooner if asymptomatic. Hydrate well (2) Left elbow pain: Code(s): M25.522 - Pain in left elbow Plan: Likely left elbow contusion. No obvious fracture on x-ray - awaiting definitive read, ordered a stat Rest, ice, elevation, NSAIDs. Will also give her a 3 days tramadol for significant pain at left elbow. Will give her a sling Also abrasion Can use triple antibiotic or bacitracin and keep covered May shower She is up-to-date with her tetanus shot (3) Left knee pain: Code(s): M25.562 - Pain in left knee Plan: Left knee contusion No obvious fracture on x-ray though I do see calcifications on tendon. Awaiting definitive reading by radiologist. Patient is able to bear weight and walk Keep leg elevated when sitting. Use ice, NSAIDs and pain control as above Also abrasion. Can use triple antibiotic or bacitracin. Keep covered Up-to-date with tetanus shot Orders: Orders XR elbow LT min 3V Today M25.562 - Pain in left knee Medications: New tramadol 50 mg PO BID 3 days PRN 6 tabs 0RF pain ibuprofen 800 mg PO Q8H 14 days PRN 42 tabs 0RF pain Coding Level of Care Code Est Pt Level 3 (04475) Diagnoses Concussion S06.0XAA Left elbow pain M25.522 Left knee pain M25.562
[2024-06-22 10:44] VITALS: BP 112/76; PULSE 83; TEMP 36.6; O2SAT 98; BMI 40.0
== END 2024-06-22 12:49 | disposition home or self-care (01) ==
PROVIDERS: PCP Internal Medicine; Visit Provider Family Medicine
DX: S06.0XAA Concussion with loss of consciousness status unknown, initial encounter (principal); M25.522 Pain in left elbow; M25.562 Pain in left knee

== ENCOUNTER → 2024-06-22 11:53 | Outpatient (BNV) | payer OTHER, SELFPAY | PROVIDERS: PCP Nurse Practitioner Family; Visit Provider Radiology Vascular & Interventional Radiology | DX: M25.562 Pain in left knee (principal); M25.522 Pain in left elbow | CPT/HCPCS: 73080; 73564 ==

== ENCOUNTER 2024-07-15 07:22 | Outpatient (REF) | payer OTHER, SELFPAY ==
--- OUTSIDE RECORDS SUMMARY | 2024-07-15 07:25 | XMS_ITS | Patient Health Record ---
Author Organization [facility] Address [address] [place] [address] Care Team Providers Care Burlap Spreader Name Role Phone Audrey Burleson Primary Care Provider Josh Hinkle Unavailable [phone] Allergies Allergen (clinical drug ingredient) Drug/Non Drug Allergy documented on EMR Reaction Allergy Type Onset Date Status erythromycin Erythromycin hives Drug Allergy A ctive Iodinated contrast media (substance) Iodinated Diagnostic Agents dizziness, difficulty breathing Drug Allergy Active Reason For Referral No Information Medications Medication SIG (Take, Route, Frequency, Duration) Notes [...] Voltaren 1 % as directed Externally Active Immunizations Vaccine Route Administration Date Status Comme nts COVID-19 Pfizer BioNTech Vaccine Unknown 09/24/2021 Administered 1st 05/26/2020 2nd 08/17/2020 3rd 08/24/2020 Social History Tobacco Use: Social History Observation Description Date Details (start date - stop date) Never Smoker NA - NA Tobacco Use/Smoking Question Answer Notes Are you a: nonsmoker Additional Findings: Tobacco Non-User Current no n-smoker Alcohol Screen Question Answer Notes Did you have a drink containing alcohol in the p ast year? No Points 0 Interpretation Negative Tobacco use other than smoking: Question Answer Notes Are you an other tobacco user? No Problems Problem Type SNOMED Code ICD Code Onset Dates Problem Status W/U Status Risk Notes Problem Localized, primary osteoarthritis of the ankle and/or foot (846425908) Primary osteoarthrit is, right ankle and foot (M19.071) Active confirmed Problem Localized, primary osteoarthritis of the ankle and/or foot (031423774) Primary osteoarthrit is, left ankle and foot (M19.072) Active confirmed Problem Acquired hallux valgus (42550735) Hallux valgus (acquired), right foot (M20.11) Active confirmed Problem Acquired hammer toe of right foot (4292444407357811) Other hammer toe(s) (acquired), right foot (M20.41) Active confirmed Problem Acquired hammer toe of left foot (4791498292343419) Other hammer toe(s) (acquired), left foot (M20.42) Active confirmed Plan Of Treatment Pending Test Test Name Order Date X ray : Foot, left 3V 12/13/2021 X ray : Foot, right 3V 12/13/2021 Insurance Providers Payer Name Payer Address Payer Phone Subscriber Number Group Number Insured Name Patient Relationship to Insured Coverage Start Date Coverage End Date Blue Benefits [address] [address] [place] [address] [id number] Prema Mccollum Self - patient is the insured Medical (General) History Medical History History ICD Code Anxiety osteoarthritis Back,Hip,and Knee pain Broken bones Cancer Depression Headaches/Migraines High blood pressure Reflux ( GERD) Sciatica chronic sinusitis thyroid nodule Measles Mumps Chicken pox Obesity covid-19 Surgical History Surgery Date(Month/Year) eye surgery 1960, 1965 hysterectomy, total 11/2017 thyroidectomy, partial 02/2021 Thyriod Biopsy 12/2021
[2024-07-15 09:18] LABS: Free T4 (Free Thyroxine) 0.96 ng/dL (0.71-1.85)
== END 2024-07-15 07:23 | disposition home or self-care (01) ==
LOC: HO.LAB 07:22
PROVIDERS: PCP Nurse Practitioner Family; Visit Provider Internal Medicine Endocrinology, Diabetes & Metabolism
DX: E89.0 Postprocedural hypothyroidism (principal)
CPT/HCPCS: 36415; 84439; 84443

== ENCOUNTER 2024-07-28 10:12 | Emergency (ER) | payer OTHER, SELFPAY ==
--- NOTE | ~2024-07-28 | CT_ITS ---
CLINICAL HISTORY: fall, head strike, pain CT head without contrast Comparison: None Findings: No intra-axial mass, midline shift, hydrocephalus, or acute hemorrhage. Partially empty sella. Mild age-related cerebral hemispheric white matter ischemic changes. Mild right maxillary sinus polypoid mucosal thickening. The orbits are unremarkable. There is no acute fracture. IMPRESSION: 1. No acute intracranial findings. This document has been electronically signed by: Erna Alva MD on 07/28/2024 12:05:40
--- NOTE | ~2024-07-28 | CT_ITS ---
CLINICAL HISTORY: fall, head strike, pain CT cervical spine without contrast Comparison: 01/27/2020 Findings: Mild grade 1 anterolisthesis at C3/C4. No acute fracture. Multilevel degenerative cervical spine changes Mild right maxillary sinus mucosal thickening. Small/absent right thyroid lobe/thyroid isthmus. IMPRESSION: No acute fracture This document has been electronically signed by: Erna Alva MD on 07/28/2024 12:11:21
[2024-07-28 10:39] VITALS: BP 148/80; PULSE 96; RESP 18; TEMP 36.6; O2SAT 97; BMI 39.5
--- NOTE | 2024-07-28 10:42 | ED_ITS ---
HPI - General Adult General Chief complaint: Fall Stated complaint: concussion Time Seen by Provider: 07/28/24 12:13 History of Present Illness HPI narrative: Patient complains of multiple falls on the ice, also complains that since June 4 weeks ago after another fall she has had what she perceives as concussive symptoms meaning she feels like she is not thinking clearly sometimes her vision feels blurry, but otherwise there is no vomiting no severe headache no trouble walking no confusion no fainting or feeling faint, she does remember everything after her multiple falls, she only hit her head in 1 fall in June but the others she felt like her head with back and forth but did not contact the ground Patient states the fall in June and the for recent slip and fall are all without any preceding dizziness or syncope, she has been wearing smooth shoes walking on the ice and has had multiple falls She also says her right knee is sore after the falls but she walks on it easily Related Data Home Medications ?Medication ?Instructions ?Recorded ?Confirmed venlafaxine 75 mg tablet,extended 75 mg PO DAILY 10/03/23 06/13/24 release 24 hr methylphenidate HCl 10 mg tablet 10 mg PO BID 12/13/23 06/13/24 metoprolol succinate 25 mg 25 mg PO DAILY 06/13/24 06/13/24 tablet,extended release 24 hr Previous Rx's ?Medication ?Instructions ?Recorded diclofenac sodium 75 mg 75 mg PO BID pain 10 days #20 tabs 12/13/23 tablet,delayed release ibuprofen 800 mg tablet 800 mg PO Q8H PRN pain 14 days #42 06/22/24 tabs tramadol 50 mg tablet 50 mg PO BID PRN pain 3 days #6 06/22/24 tabs levothyroxine 100 mcg tablet 100 mcg PO DAILY #90 tabs 07/15/24 Allergies Allergy/AdvReac Type Severity Reaction Status Date / Time Iodinated Contrast Media Allergy Severe Anaphylaxis Verified 07/28/24 10:42 [IV Contrast Dye] erythromycin base Allergy Intermediate Hives Verified 07/28/24 10:42 [ERYTHROMYCIN BASE] PMF Past Medical History Source: nursing notes reviewed Medical History (Updated 07/28/24 @ 12:34 by SAVANNA Smith) JULIO (obstructive sleep apnea) Thoracic spondylosis Lumbar spondylolysis IBS (irritable bowel syndrome) GERD (gastroesophageal reflux disease) Postoperative hypothyroidism Dysphagia Endometrial cancer HTN (hypertension) Vitamin D deficiency Surgical History H/O colonoscopy History of endometrial biopsy Hx of partial thyroidectomy Hx of eye surgery Hx of total hysterectomy Family History Family History Father High cholesterol Mother Dementia Sister Ovarian cancer Social History Social History Household Members: None Are you a primary critical care nurse to a significant other at home: No Do you presently have visiting nurse or other home services: No Alcohol intake: never Patient Tobacco Use Status: Never used Tobacco Advance Directives: No Advance Directives Information Provided: No Do you have a plan to hurt others: No Plan Physical Exam ED Vital Signs: Vital Signs - 24 hr 07/28/24 10:39 Temperature 97.8 F Pulse Rate 96 Respiratory Rate 18 Blood Pressure 148/80 H Pulse Oximetry 97 Oxygen Delivery Method Room Air BMI result Body Mass Index 39.5 General appearance is no acute distress Head is normocephalic atraumatic Pupils equal round reactive to light extraocular motions are intact No raccoon eyes no lewis sign The neck is supple and nontender Respiratory no distress Extremities full range of motion x4 Her right knee did have mild tenderness but no obvious swelling Neuro gait and balance are normal, no obvious limp, interaction comprehension and expression are normal, cranial nerves 2-12 intact as tested, motor is 5/5 x4 sensation intact and symmetrical distal extremities, cerebellar exam [id number] is normal Course Course Course Narrative: RME performed by Emily France PA-C. Patient is a 64 year old assigned female at presenting to the emergency department with increased confusion after multiple slip and falls on ice in the last 3 weeks. Detailed physical exam and review of systems are deferred to the primary health organisation manager. Imaging ordered. Patient placed back in the waiting room pending room availability and results. Well-appearing patient who ambulates easily, no neurologic deficit, no evidence of any musculoskeletal significant injury had negative head CT and negative cervical spine CT and is discharged diagnosis concussion Discharge Plan Discharge Clinical Impression: Concussion Patient Disposition: Home, Self-Care Additional Instructions: Your symptoms are likely a mix of concussion from recent fall and wetting the head back and forth as well as postconcussive symptoms from the fall in June Your head CT and cervical spine CT are negative for any bleed or fracture Follow with primary doctor for referral to physical therapists who specialize in concussion or sports medicine doctors as there are some therapies that are helpful to some patients, although most patients do recover fully in time Return any time any worse condition or any concerns Go to the [employer] and buy some spikes that are easily attached to the shoe and use them when you are walking outside as it is very icy and you have now had 5 falls Prescriptions: No Action levothyroxine 100 mcg tablet 100 mcg PO DAILY Qty: 90 0RF methylphenidate HCl 10 mg tablet 10 mg PO BID diclofenac sodium 75 mg tablet,delayed release (DR/EC) 75 mg PO BID 10 Days Qty: 20 0RF tramadol 50 mg tablet 50 mg PO BID PRN (Reason: pain) 3 Days Qty: 6 0RF ibuprofen 800 mg tablet 800 mg PO Q8H PRN (Reason: pain) 14 Days Qty: 42 0RF venlafaxine 75 mg tablet extended release 24hr 75 mg PO DAILY metoprolol succinate 25 mg tablet extended release 24 hr 25 mg PO DAILY Referrals: Barber Camara PA-C [Physician Lab Manager] - (Right knee pain after fall) Stand Alone Forms: Work/School Release Print Language: Serbian
[2024-07-28 12:51] VITALS: BP 148/80; PULSE 96; RESP 18; TEMP 36.6; O2SAT 97
== END 2024-07-28 12:52 | disposition home or self-care (01) ==
PROVIDERS: Emergency Provider Emergency Medicine; PCP Nurse Practitioner Family
DX: S06.0X0A Concussion without loss of consciousness, initial encounter (principal); S89.91XA Unspecified injury of right lower leg, initial encounter; R42 Dizziness and giddiness; R51.9 Headache, unspecified; M54.2 Cervicalgia; W00.0XXA Fall on same level due to ice and snow, initial encounter; Z91.81 History of falling; Y93.01 Activity, walking, marching and hiking; Y92.9 Unspecified place or not applicable; Y99.8 Other external cause status; Z79.899 Other long term (current) drug therapy
CPT/HCPCS: 70450; 72125; 99282; 99284

== ENCOUNTER → 2024-07-28 10:42 | Outpatient (BNV) | payer OTHER, SELFPAY | PROVIDERS: Emergency Provider Emergency Medicine; PCP Nurse Practitioner Family; Visit Provider Radiology Diagnostic Radiology | DX: S06.0X0A Concussion without loss of consciousness, initial encounter (principal) | CPT/HCPCS: 70450; 72125 ==

== ENCOUNTER 2024-08-10 13:01 | Outpatient (REF) | payer OTHER, SELFPAY ==
--- OUTSIDE RECORDS SUMMARY | 2024-08-10 13:04 | XMS_ITS | Patient Health Record ---
Author Organization [facility] Address [address] [place] [address] Care Team Providers Care Tactical/Mobile Watch Officer Name Role Phone Audrey Burleson Primary Care Provider Josh Hinkle Unavailable [phone] Allergies Allergen (clinical drug ingredient) Drug/Non Drug [...] primary osteoarthritis of the ankle and/or foot (039060919) Primary osteoarthrit is, right ankle and foot (M19.071) Active confirmed Problem Localized, primary osteoarthritis of the ankle and/or foot (056629262) Primary osteoarthrit is, left ankle and foot (M19.072) Active confirmed Problem Acquired hallux valgus (41986761) Hallux valgus (acquired), right foot (M20.11) Active confirmed Problem Acquired hammer toe of right foot (4032046168899052) Other hammer toe(s) (acquired), right foot (M20.41) Active confirmed Problem Acquired hammer toe of left foot (6018147651522113) Other hammer toe(s) (acquired), left foot (M20.42) Active confirmed Plan Of Treatment Pending Test Test Name Order Date X ray : Foot, left 3V 12/13/2021 X ray : Foot, right 3V 12/13/2021 Insurance Providers Payer Name Payer Address Payer Phone Subscriber Number Group Number Insured Name Patient Relationship to Insured Coverage Start Date Coverage End Date Blue Benefits [address] [address] [place] [address] [id number] Prema Mccollum Self - patient is the [...]
[2024-08-10 15:51] LABS: Free T4 (Free Thyroxine) 1.26 ng/dL (0.71-1.85); Thyroid Stimulating Hormone 2.02 uIU/mL (0.32-4.0)
== END 2024-08-10 13:02 | disposition home or self-care (01) ==
LOC: HO.HMGCLDS 13:01
PROVIDERS: PCP Nurse Practitioner Family; Visit Provider Internal Medicine Endocrinology, Diabetes & Metabolism
DX: E89.0 Postprocedural hypothyroidism (principal)
CPT/HCPCS: 36415; 84439; 84443

== ENCOUNTER 2024-08-12 07:41 | Outpatient (AMB) | payer OTHER, SELFPAY ==
--- OUTSIDE RECORDS SUMMARY | 2024-08-12 07:44 | XMS_ITS | Patient Health Record ---
Author Organization [facility] Address [address] [place] [address] Care Team Providers Care Investigation Clerk Name Role Phone Audrey Burleson Primary Care Provider Josh Hinkle Unavailable [phone] Allergies Allergen (clinical drug ingredient) Drug/Non Drug [...] primary osteoarthritis of the ankle and/or foot (866888060) Primary osteoarthrit is, right ankle and foot (M19.071) Active confirmed Problem Localized, primary osteoarthritis of the ankle and/or foot (621473182) Primary osteoarthrit is, left ankle and foot (M19.072) Active confirmed Problem Acquired hallux valgus (03031623) Hallux valgus (acquired), right foot (M20.11) Active confirmed Problem Acquired hammer toe of right foot (7228098029106732) Other hammer toe(s) (acquired), right foot (M20.41) Active confirmed Problem Acquired hammer toe of left foot (4055345397821704) Other hammer toe(s) (acquired), left foot (M20.42) Active confirmed Plan Of Treatment Pending Test Test Name Order Date X ray : Foot, left 3V 12/13/2021 X ray : Foot, right 3V 12/13/2021 Insurance Providers Payer Name Payer Address Payer Phone Subscriber Number Group Number Insured Name Patient Relationship to Insured Coverage Start Date Coverage End Date Blue Benefits [address] [address] [place] [address] [id number] Prema Mccollum Self - patient is the [...]
[2024-08-12 07:54] VITALS: BP 110/72; PULSE 92; O2SAT 97; BMI 39.5
--- NOTE | 2024-08-12 07:54 | A.OFFVIS_ITS ---
Vital Signs 08/12/24 07:54 Height 5 ft 8 in Weight 259 lb 11.272 oz BMI 39.5 BP 110/72 Blood Pressure Location Rt brachial Position Sitting Pulse 92 Pulse Source Pulse Oximeter Pulse Oximetry (%) 97 Oxygen Delivery Method Room Air Intake Visit Reasons: f/u hypothyroidism/MNG with Dr. Head Intake Note: Patient present today for hypothyroidism/MNG follow up visit. Motor Vehicle License Clerk Required: No Accompanied by: Self / Same As Patient Allergies Iodinated Contrast Media [IV Contrast Dye] Allergy (Severe, Verified 08/12/24 07:54) Anaphylaxis erythromycin base [ERYTHROMYCIN BASE] Allergy (Intermediate, Verified 08/12/24 07:54) Hives Medication List - Last Reconciled 08/12/24 by Iesha Head MD diclofenac sodium 75 mg PO BID 10 days ibuprofen 800 mg PO Q8H PRN 14 days levothyroxine 100 mcg PO DAILY methylphenidate HCl 10 mg PO BID metoprolol succinate ER 25 mg PO DAILY tramadol 50 mg PO BID PRN 3 days venlafaxine ER mg PO DAILY HPI Comments Details: 64-year-old female here today for follow up of multinodular goiter status post right hemithyroidectomy 01/25/2021, with postoperative hypothyroidism. HPI Initially diagnosed with multinodular thyroid in February 2020 with ultrasound of the thyroid revealing multiple bilateral large nodules. 05/14/2020: FNA biopsy of the right lower pole 2.9 cm and right midpole 1.4 cm nodules with benign cytology [facility] [place] category 2. At the time of the biopsy she was noted to have a large goiter that did appear to extend substernally. In addition she was complaining of compressive symptoms and hence 01/25/2021: Status post right hemithyroidectomy with Dr. Lawrence Macario at [facility]. Surgical pathology was benign. Also an incidental 1 intrathyroidal parathyroid tissue was removed. Postoperatively she developed hypothyroidism. She also did gained 50 lb since surgery. Compressive symptoms resolved. She was noted to have a left lower pole 1.1 cm thyroid nodule subsequently, 11/12/2021: FNA biopsy of the left lower pole nodule with benign cytology [facility] [place] category 2. No family history of thyroid cancer. Was in [place] at the time of [place] incident. She did not receive iodine prophylaxis. Interval history Currently continues on 100 mcg of levothyroxine daily Last set of labs August 2024: Showed normal TSH and normal free T4 10/19/2022: Last thyroid ultrasound showed left superior subcentimeter TR 3 nodule, left mid subcentimeter 0.8 cm nodule which is solid, hypoechoic with punctate echogenic foci, TR 5 category which had mildly increased in size compared to 2020, however when I reviewed the images myself, this looks like a macrocalcification to be not a punctate echogenic foci, and a left inferior 0.9 cm solid, isoechoic TR 3 category nodule. She is due for repeat thyroid ultrasound now. Denies compressive sx Weight stable, bowel movements regular Physical exam General: sitting comfortably in no acute distress HEENT: normocephalic/atraumatic Neck: supple, symmetrical Cardiac: normal heart sounds Pulm: normal breath sounds B/L, no added breath sounds Abd: not distended, no tenderness Extremities: no edema, no signs of myxedema Laboratory Tests 07/15/24 08/10/24 07:39 13:10 TSH 5.00 H 2.02 Free T4 0.96 1.26 US THYROID 10/19/22 CLINICAL INFORMATION: Nontoxic multinodular goiter. COMPARISON: Ultrasound thyroid 05/10/2021. CT soft tissue neck without contrast 06/12/2020. Ultrasound thyroid 02/12/2020. US-guided thyroid biopsy 11/12/2021. TECHNIQUE: Linear transducer grayscale and color Doppler examination with attention to the region of the thyroid. FINDINGS: SIZE: Measurements of the solitary left thyroid lobe and nodules are given in sagittal, anteroposterior and transverse dimensions respectively. Right Thyroid Lobe: Surgically absent. Left Thyroid Lobe: 3.9 x 1.3 x 1.4 cm, volume 3.8 mL. Previously 4.2 x 1.1 x 1.1 cm, volume 2.7 mL. Parenchyma: The gland echotexture is heterogeneous. Thyroid vascularity is normal. Isthmus: Surgically absent. Estimated total number of nodules greater than or equal to 1 cm: 0. Perioperative Nurse nodules are described as follows: 1. Location: Left superior. Size: 0.4 x 0.3 x 0.4 cm, volume 0.03 mL. Previously: 0.3 x 0.3 x 0.4 cm, volume 0.02 mL. Nodule characteristics: Composition: Solid (2). Echogenicity: Hyperechoic (1). Shape: Not taller than wide (0). Margins: Smooth (0). Echogenic Foci: Macrocalcifications (1). ACR TI-RADS total points: 4 Previous: 3 ACR TI-RADS category: 4 Previous: 3 Significant change in size (>/= 20% in 2 dimensions and minimal increase of 2 mm or 50% or greater increase in volume): Yes Change in features: Yes Change in ACR TI-RADS risk category: Yes 2. Location: Left superior. Size: 0.5 x 0.4 x 0.4 cm, volume 0.04 mL. Previously: 0.4 x 0.3 x 0.5 cm, volume 0.03 mL. Nodule characteristics: Composition: Solid (2). Echogenicity: Cannot be determined (1). Shape: Not taller than wide (0). Margins: Smooth (0). Echogenic Foci: None (0). ACR TI-RADS total points: 3 Previous: 3 ACR TI-RADS category: 3 Previous: 3 Significant change in size (>/= 20% in 2 dimensions and minimal increase of 2 mm or 50% or greater increase in volume): No Change in features: No Change in ACR TI-RADS risk category: No 3. Location: Left mid. Size: 0.8 x 0.5 x 0.6 cm, volume 0.12 mL. Previously: 0.6 x 0.5 x 0.6 cm, volume 0.09 mL. Nodule characteristics: Composition: Solid (2). Echogenicity: Hypoechoic (2). Shape: Not taller than wide (0). Margins: Smooth (0). Echogenic Foci: Punctate echogenic foci (3). ACR TI-RADS total points: 7 Previous: 4 ACR TI-RADS category: 5 Previous: 4 Significant change in size (>/= 20% in 2 dimensions and minimal increase of 2 mm or 50% or greater increase in volume): No Change in features: Yes Change in ACR TI-RADS risk category: Yes 4. Location: Left inferior. Size: 0.9 x 0.7 x 0.9 cm, volume 0.3 mL. Previously: 1.1 x 0.7 x 0.9 cm, volume 0.36 mL. Nodule characteristics: Composition: Solid (2). Echogenicity: Isoechoic (1). Shape: Not taller than wide (0). Margins: Smooth (0). Echogenic Foci: None (0). ACR TI-RADS total points: 3 Previous: 3 ACR TI-RADS category: 3 Previous: 3 Significant change in size (>/= 20% in 2 dimensions and minimal increase of 2 mm or 50% or greater increase in volume): No Change in features: No Change in ACR TI-RADS risk category: No NODES: No lymphadenopathy is seen in the tissue surrounding the thyroid gland. US/US thyroid IMPRESSION: 1. Small left thyroid lobe nodules are seen, as detailed. 2. The right thyroid lobe and thyroid isthmus are surgically absent. No residual or recurrent mass lesion is seen within the corresponding former thyroid bed. Thyroid US: 05/10/2021 SIZE: Measurements of the solitary left thyroid lobe and nodules are given in sagittal, anteroposterior and transverse dimensions respectively. Right Thyroid Lobe: Surgically removed. Left Thyroid Lobe: 4.2 x 1.1 x 1.1 cm, volume 2.7 mL. Previously 4.2 x 1.1 x 1.2 cm, volume 2.9 mL. Parenchyma: The gland echotexture is heterogeneous. Thyroid vascularity is normal. Isthmus: Surgically removed. Estimated total number of nodules greater than or equal to 1 cm: 1. Perioperative Nurse nodules are described as follows: 1. Location: Left superior. Size: 0.31 x 0.29 x 0.4 cm, volume 0.02 mL. Previously: 0.42 x 0.33 x 0.4 cm, volume 0.02 mL. Nodule characteristics: Composition: Solid (2). Echogenicity: Hyperechoic (1). Shape: Not taller than wide (0). Margins: Smooth (0). Echogenic Foci: None (0). ACR TI-RADS total points: 3 Previous: n/a ACR TI-RADS category: 3 Previous: n/a Significant change in size (>/= 20% in 2 dimensions and minimal increase of 2 mm or 50% or greater increase in volume): No Change in features: No Change in ACR TI-RADS risk category: n/a 2. Location: Left superior. Size: 0.38 x 0.34 x 0.51 cm, volume 0.03 mL. Previously: 0.7 x 0.51 x 0.5 cm, volume 0.09 mL. Nodule characteristics: Composition: Solid (2). Echogenicity: Hyperechoic (1). Shape: Not taller than wide (0). Margins: Smooth (0). Echogenic Foci: None (0). ACR TI-RADS total points: 3 Previous: n/a ACR TI-RADS category: 3 Previous: n/a Significant change in size (>/= 20% in 2 dimensions and minimal increase of 2 mm or 50% or greater increase in volume): No Change in features: No Change in ACR TI-RADS risk category: n/a 3. Location: Left mid. Size: 0.61 x 0.48 x 0.61 cm, volume 0.09 mL. Previously: 0.71 x 0.51 x 0.59 cm, volume 0.11 mL. Nodule characteristics: Composition: Solid/almost completely solid (2). Echogenicity: Hypoechoic (2). Shape: Not taller than wide (0). Margins: Smooth (0). Echogenic Foci: None (0). ACR TI-RADS total points: 4 Previous: n/a ACR TI-RADS category: 4 Previous: n/a Significant change in size (>/= 20% in 2 dimensions and minimal increase of 2 mm or 50% or greater increase in volume): No Change in features: No Change in ACR TI-RADS risk category: n/a 4. Location: Left inferior. Size: 1.1 x 0.74 x 0.86 cm, volume 0.36 mL. Previously: 1.3 x 0.7 x 0.81 cm, volume 0.39 mL. Nodule characteristics: Composition: Solid/almost completely solid (2). Echogenicity: Hyperechoic (1). Shape: Not taller than wide (0). Margins: Smooth (0). Echogenic Foci: None (0). ACR TI-RADS total points: 3 Previous: n/a ACR TI-RADS category: 3 Previous: n/a Significant change in size (>/= 20% in 2 dimensions and minimal increase of 2 mm or 50% or greater increase in volume): No Change in features: No Change in ACR TI-RADS risk category: n/a NODES: No lymphadenopathy is seen in the tissue surrounding the thyroid gland. CT Neck: 06/12/2020 FINDINGS: The right lobe of the thyroid gland is enlarged measuring 6 x 3 x 3 cm in sagittal AP and transverse dimension. The left lobe of the thyroid gland is normal in size measuring 3.6 x 1.2 x 1.5 cm in sagittal AP and transverse dimension. There are multiple bilateral thyroid nodules. The largest thyroid nodule in the mid to lower pole of the right lobe measures approximately 2.8 x 2.8 x 2.3 cm, appears complex cystic and partially calcified. No substernal extension is seen. No tracheal impingement or displacement is seen. There is food seen in the cervical and visualized thoracic esophagus. There are no enlarged lymph nodes. The visualized intracranial structures are normal. The visualized orbits, paranasal sinuses, mastoid air cells and middle ears are clear. Temporomandibular joints are normal. Salivary glands are normal. The nasopharynx, oropharynx and hypopharynx are normal. There is multilevel degenerative spondylosis, degenerative disc disease and facet arthritis. There is curvature of the lower cervical and upper thoracic spine to the right. CT/CT soft tissue neck wo con IMPRESSION: Enlarged right thyroid lobe. Bilateral thyroid nodules. The largest nodule is in the mid and lower pole of the right lobe, measures 3.6 x 1.2 x 1.5 cm, appears complex cystic with calcifications. No mass effect on the trachea or deviation is seen. The cervical and visualized thoracic esophagus is filled with food. Clinical correlation is recommended, i.e., has the patient recently eaten? [facility] Medical History (Updated 07/29/24 @ 00:00 by Sharon Rooney) JULIO (obstructive sleep apnea) Thoracic spondylosis Lumbar spondylolysis IBS (irritable bowel syndrome) GERD (gastroesophageal reflux disease) Postoperative hypothyroidism Dysphagia Endometrial cancer HTN (hypertension) Vitamin D deficiency Surgical History H/O colonoscopy History of endometrial biopsy Hx of partial thyroidectomy Hx of eye surgery Hx of total hysterectomy Family History Father High cholesterol Mother Dementia Sister Ovarian cancer Social History Household Members: None Are you a primary health care law specialist to a significant other at home: No Do you presently have visiting nurse or other home services: No Alcohol intake: never Patient Tobacco Use Status: Never used Tobacco Physical Exam Vital Signs: Last Vital Signs Pulse 92 08/12/24 07:54 BP 110/72 08/12/24 07:54 Pulse Ox 97 08/12/24 07:54 Oxygen Delivery Method Room Air 08/12/24 07:54 BMI result Body Mass Index 39.5 Assessment & Plan Assessment & Plan (1) Multinodular thyroid: Code(s): E04.2 - Nontoxic multinodular goiter Category: Medical Plan: 64-year-old female with no family history of thyroid cancer, with personal history of exposure to [place] could not who did not receive iodine prophylaxis, with a history of multinodular goiter, status post right hemith yroidectomy in [address] Lawrence Macario at [facility] [place] with benign surgical pathology, who has been followed for postoperative hypothyroidism and left-sided thyroid nodules. Most recent blood work from August 2024 shows normal thyroid function now that she has med more adherent with her medication. She continues on levothyroxine 100 mcg daily. Her last thyroid ultrasound was from October 2022 which showed subcentimeter nodules, the left midpole nodule was labeled as a TR 5 nodule with punctate echogenic foci, however this looks more like a macrocalcification to me when I reviewed the images. Regardless we will have her repeat an ultrasound now as it has been 2 years since her last ultrasound. She does not have any compressive symptoms or symptoms of hypo or hyperthyroidism. Plan: -ordered ultrasound of the thyroid -continue levothyroxine 100 mcg daily -follow up in 8 weeks to discuss results of the ultrasound (2) Postoperative hypothyroidism: Code(s): E89.0 - Postprocedural hypothyroidism Category: Medical Plan: She is clinically and biochemically euthyroid, last set of labs normal from August 2024. Plan: -continue levothyroxine 100 mcg daily. Plan See above Orders: Orders US thyroid Today E04.2 - Nontoxic multinodular goiter Patient Instructions: Do Thyroid ultrasound, someone we will call you to schedule this Follow up in 8 weeks to discuss results Coding Level of Care Code Est Pt Level 3 (06831) Diagnoses Multinodular thyroid E04.2 Postoperative hypothyroidism E89.0
== END 2024-08-12 08:18 | disposition home or self-care (01) ==
PROVIDERS: PCP Internal Medicine; Visit Provider Student in an Organized Health Care Education/Training Program
DX: E04.2 Nontoxic multinodular goiter (principal); E89.0 Postprocedural hypothyroidism
CPT/HCPCS: 99213

== ENCOUNTER → 2024-08-12 07:41 | Outpatient (BNVA) | payer OTHER, SELFPAY | PROVIDERS: PCP Internal Medicine; Visit Provider Student in an Organized Health Care Education/Training Program ==

== ENCOUNTER 2024-10-14 13:00 | Outpatient (AMB) | payer OTHER, SELFPAY ==
--- OUTSIDE RECORDS SUMMARY | 2024-10-14 13:19 | XMS_ITS | Patient Health Record ---
Author Organization [facility] Address [address] [place] [address] Care Team Providers Care Oil House Attendant Name Role Phone Audrey Burleson Primary Care Provider Josh Hinkle Unavailable [phone] Allergies Allergen (clinical drug ingredient) Drug/Non Drug [...] primary osteoarthritis of the ankle and/or foot (078083861) Primary osteoarthrit is, right ankle and foot (M19.071) Active confirmed Problem Localized, primary osteoarthritis of the ankle and/or foot (964159632) Primary osteoarthrit is, left ankle and foot (M19.072) Active confirmed Problem Acquired hallux valgus (93096596) Hallux valgus (acquired), right foot (M20.11) Active confirmed Problem Acquired hammer toe of right foot (9499169132645186) Other hammer toe(s) (acquired), right foot (M20.41) Active confirmed Problem Acquired hammer toe of left foot (5053912285090279) Other hammer toe(s) (acquired), left foot (M20.42) Active confirmed Plan Of Treatment Pending Test Test Name Order Date X ray : Foot, left 3V 12/13/2021 X ray : Foot, right 3V 12/13/2021 Insurance Providers Payer Name Payer Address Payer Phone Subscriber Number Group Number Insured Name Patient Relationship to Insured Coverage Start Date Coverage End Date Blue Benefits [address] [address] [place] [address] [id number] Prema Mccollum Self - patient is the [...]
--- NOTE | 2024-10-14 13:34 | MHC.OFFWIV ---
Intake Vital Signs 10/14/24 13:35 Weight 264 lb BP 120/80 Blood Pressure Location Lt brachial Position Sitting Pulse 103 H Pulse Source Pulse Oximeter Pulse Oximetry (%) 100 Oxygen Delivery Method Room Air Intake Visit Reasons: EP-rt arm pain Intake Note: Patient here for right arm pain that started yesterday. Patient Tobacco Use Status: Never used Tobacco Allergies Iodinated Contrast Media [IV Contrast Dye] Allergy (Severe, Verified 10/14/24 13:35) Anaphylaxis erythromycin base [ERYTHROMYCIN BASE] Allergy (Intermediate, Verified 10/14/24 13:35) Hives HPI HPI Comments History of Present Illness Details History of Present Illness - The patient is a 64-year-old female presenting with pain in the right upper arm. - The onset of pain occurred 2 days ago, affecting the biceps area, and is described as an electric surge when moving the arm. - The symptom has worsened since onset without any precipitating event or recent changes in physical activity or sleep. - The patient does not experience numbness or rash but mentions warmth in the affected arm. There is no history of fever or joint pain. - The use of 800 mg ibuprofen, initially prescribed in June, did not alleviate the pain, and initial treatment with acetaminophen also proved ineffective. 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 - There is a family history of arthritis, although the patient has no personal arthritis history. Physical Exam General: Cooperative, healthy appearing, comfortable, no acute distress and well developed Orientation: Patient oriented x3 Limitations: No limitations Head: Normal to inspection Ears: Hearing grossly normal bilaterally Nose: Normal External nose present Face and sinus: Normal facial exam Eyes: Appearance normal, both eyes and all related structures Neck: Normal visual inspection and Yes full ROM Respiratory: Normal respiratory effort and able to speak in complete sentences. Skin: No rashes or lesions noted Neuro: Patient oriented x3 Back/spine no TTP cervical spine, notable lump with firmness and TTP on right side cervical paraspinous to trapezius muscles. Extremities: TTP right proximal bicepts. no ttp remainder of upper right arm. no ttp lateral or medial epicondyle, full ROM shoulder and elbow, wrist and fingers; all digits NVI. textile finisher strength 5/5 bilaterally. [facility] Medical History JULIO (obstructive sleep apnea) Thoracic spondylosis Lumbar spondylolysis IBS (irritable bowel syndrome) GERD (gastroesophageal reflux disease) Postoperative hypothyroidism Dysphagia Endometrial cancer HTN (hypertension) Vitamin D deficiency Surgical History H/O colonoscopy History of endometrial biopsy Hx of partial thyroidectomy Hx of eye surgery Hx of total hysterectomy Family History Father High cholesterol Mother Dementia Sister Ovarian cancer Social History Household Members: None Are you a primary resident care technician to a significant other at home: No Do you presently have visiting nurse or other home services: No Alcohol intake: never Patient Tobacco Use Status: Never used Tobacco Review of Systems Const All systems reviewed & are unremarkable except as noted in HPI and below Physical Exam Vital Signs: Last Vital Signs Pulse 103 H 10/14/24 13:35 BP 120/80 10/14/24 13:35 Pulse Ox 100 10/14/24 13:35 Oxygen Delivery Method Room Air 10/14/24 13:35 Assessment & Plan Assessment & Plan (1) Bicipital tendinitis, right shoulder: Code(s): M75.21 - Bicipital tendinitis, right shoulder Plan: The suspected muscle spasm and biceps tendinitis are managed with cyclobenzaprine and meloxicam. Cyclobenzaprine, a muscle relaxant, is prescribed in a 5 mg dose as needed, with flexibility for adjusting dosage to 10mg Q8H based on symptom relief. Meloxicam, a powerful anti-inflammatory, should be taken every 12 hours with warnings to avoid ibuprofen. Patient awareness of potential tiredness and avoidance of alcohol while on cyclobenzaprine is crucial. A work absence note was provided to aid in recovery. It's advised to follow up with a primary care provider if the condition persists beyond this regimen or symptoms intensify. Patient was informed and verbally consented to the use of an ambient scribe for clinic note documentation during this visit. (2) Cervical paraspinous muscle spasm: Code(s): M62.838 - Other muscle spasm Plan: as above Medications: New cyclobenzaprine 5 mg PO Q8H PRN 20 tabs 0RF Muscle Spasm meloxicam 15 mg PO DAILY 15 tabs 0RF Discontinued tramadol Discontinued Reason: Patient no longer taking 50 mg PO BID 3 days PRN 6 tabs 0RF pain Coding Level of Care Code New Pt Level 3 (85813) Diagnoses Bicipital tendinitis, right shoulder M75.21 Cervical paraspinous muscle spasm M62.838
[2024-10-14 13:35] VITALS: BP 120/80; PULSE 103; O2SAT 100
== END 2024-10-14 14:07 | disposition home or self-care (01) ==
PROVIDERS: PCP Nurse Practitioner Family; Visit Provider Physician Assistant
DX: M75.21 Bicipital tendinitis, right shoulder (principal); M62.838 Other muscle spasm

== ENCOUNTER → 2024-10-14 13:00 | Outpatient (BNVA) | payer OTHER, SELFPAY | PROVIDERS: PCP Nurse Practitioner Family; Visit Provider Physician Assistant | DX: Z13.89 Encounter for screening for other disorder (principal) ==

== ENCOUNTER 2024-10-15 09:33 | Outpatient (REF) | payer OTHER, SELFPAY ==
--- OUTSIDE RECORDS SUMMARY | 2024-10-15 10:15 | XMS_ITS | Patient Health Record ---
Author Organization [facility] Address [address] [place] [address] Care Team Providers Care Computer Systems Analyst Name Role Phone Audrey Burleson Primary Care Provider Josh Hinkle Unavailable [phone] Allergies Allergen (clinical drug ingredient) Drug/Non Drug [...] primary osteoarthritis of the ankle and/or foot (974535101) Primary osteoarthrit is, right ankle and foot (M19.071) Active confirmed Problem Localized, primary osteoarthritis of the ankle and/or foot (362103006) Primary osteoarthrit is, left ankle and foot (M19.072) Active confirmed Problem Acquired hallux valgus (76194016) Hallux valgus (acquired), right foot (M20.11) Active confirmed Problem Acquired hammer toe of right foot (2134365564211019) Other hammer toe(s) (acquired), right foot (M20.41) Active confirmed Problem Acquired hammer toe of left foot (8108996248083926) Other hammer toe(s) (acquired), left foot (M20.42) Active confirmed Plan Of Treatment Pending Test Test Name Order Date X ray : Foot, left 3V 12/13/2021 X ray : Foot, right 3V 12/13/2021 Insurance Providers Payer Name Payer Address Payer Phone Subscriber Number Group Number Insured Name Patient Relationship to Insured Coverage Start Date Coverage End Date Blue Benefits [address] [address] [place] [address] [id number] Prema Mccollum Self - patient is the [...]
[2024-10-20 20:29] LABS: A phagocytophilum IgG <1:64 (<1:64); A phagocytophilum IgM <1:20 (<1:20); Babesia duncani Ab IgG (WA1) <1:256; Babesia microti IgG <1:64 titer (<1:64); Babesia microti IgM <1:20 titer (<1:20); E chaffeensis IgG <1:64 (<1:64); E chaffeensis IgM <1:20 (<1:20); Lyme Ab Screen <0.90 index
== END 2024-10-15 09:34 | disposition home or self-care (01) ==
LOC: HO.10HDL 09:33
PROVIDERS: Visit Provider Student in an Organized Health Care Education/Training Program
DX: M25.511 Pain in right shoulder (principal)
CPT/HCPCS: 36415; 86618; 86666; 86753

== ENCOUNTER 2024-10-29 12:20 | Outpatient (REF) | payer OTHER, SELFPAY ==
--- OUTSIDE RECORDS SUMMARY | 2024-10-29 12:33 | XMS_ITS | Patient Health Record ---
Author Organization [facility] Address [address] [place] [address] Care Team Providers Care Aircraft Instrument Engineer Name Role Phone Audrey Burleson Primary Care Provider Josh Hinkle Unavailable [phone] Allergies Allergen (clinical drug ingredient) Drug/Non Drug [...] primary osteoarthritis of the ankle and/or foot (787278153) Primary osteoarthrit is, right ankle and foot (M19.071) Active confirmed Problem Localized, primary osteoarthritis of the ankle and/or foot (122892550) Primary osteoarthrit is, left ankle and foot (M19.072) Active confirmed Problem Acquired hallux valgus (94950415) Hallux valgus (acquired), right foot (M20.11) Active confirmed Problem Acquired hammer toe of right foot (9236883947085716) Other hammer toe(s) (acquired), right foot (M20.41) Active confirmed Problem Acquired hammer toe of left foot (2572893869979129) Other hammer toe(s) (acquired), left foot (M20.42) Active confirmed Plan Of Treatment Pending Test Test Name Order Date X ray : Foot, left 3V 12/13/2021 X ray : Foot, right 3V 12/13/2021 Insurance Providers Payer Name Payer Address Payer Phone Subscriber Number Group Number Insured Name Patient Relationship to Insured Coverage Start Date Coverage End Date Blue Benefits [address] [address] [place] [address] [id number] Prema Mccollum Self - patient is the [...]
== END 2024-10-29 12:21 | disposition home or self-care (01) ==
LOC: HO.SH 12:20
PROVIDERS: Visit Provider Nurse Practitioner Family
DX: Z01.118 Encounter for examination of ears and hearing with other abnormal findings (principal); H90.3 Sensorineural hearing loss, bilateral
CPT/HCPCS: 92557

== ENCOUNTER 2024-10-30 15:52 | Outpatient (REF) | payer OTHER, SELFPAY ==
--- NOTE | ~2024-10-30 | US_ITS ---
EXAMINATION: US THYROID HISTORY: E04.2 - Nontoxic multinodular goiter TECHNIQUE: Real-time grayscale ultrasound imaging was performed and images were reviewed. COMPARISON: Comparison is made with the prior examination dated 10/19/2022. FINDINGS: SIZE: The right thyroid lobe is surgically absent. The left thyroid lobe measures 3.8 x 1.3 x 1.4 cm. FLOW: Flow to the gland is normal. ECHOGENICITY: The echotexture of the gland is heterogeneous. NODULES: Numerous left thyroid nodules are again noted. The largest nodules are described below: Nodule #: 1 Location: Left upper pole measuring 8 x 5 x 7 mm (previously 8 x 5 x 6 mm). Shape: Wider than tall (0 points) Margins: Smooth (0 points) Echotexture: Hypoechoic (2 points) Composition: Mostly solid (2 points) Calcifications: None (0 points) Total points: 4 TIRADS: TR4: Moderately suspicious. Nodule #: 2 Location: Left upper pole measuring 10 x 4 x 8 mm (not seen previously). Shape: Wider than tall (0 points) Margins: Smooth (0 points) Echotexture: Indeterminate (1 point) Composition: Mostly solid (2 points) Calcifications: Punctate calcifications (3 points) Total points: 6 TIRADS: TR4: Moderately suspicious. Nodule #: 3 Location: Midportion of the left thyroid lobe measuring 11 x 6 x 7 mm (previously 5 x 4 x 4 mm). Shape: Wider than tall (0 points) Margins: Smooth (0 points) Echotexture: Indeterminate (1 point) Composition: Mostly solid (2 points) Calcifications: None (0 points) Total points: 3 TIRADS: TR3: Mildly suspicious. Nodule #: 4 Location: Lower pole of the left thyroid lobe measuring 11 x 9 x 11 mm (previously 9 x 7 x 9 mm). Shape: Wider than tall (0 points) Margins: Smooth (0 points) Echotexture: Isoechoic (1 point) Composition: Solid (2 points) Calcifications: None (0 points) Total points: 3 TIRADS: TR3: Mildly suspicious. US/US thyroid IMPRESSION: Multiple left thyroid nodules are again identified as described above. According to ACR Ti-RADS guidelines below, continued follow-up is recommended. ACR TI-RADS Guidelines TR1 (0 points): Benign, No follow-up or biopsy required TR2 (2 points): Not Suspicious, No biopsy or follow up indicated TR3 (3 points): Mildly Suspicious, FNA if >= 2.5 cm, Follow if >= 1.5 cm TR4 (4-6 points): Moderately Suspicious, FNA if >= 1.5 cm, Follow if >= 1.0 cm TR5 (>=7 points): Highly Suspicious, FNA if >= 1.0 cm, Follow if >= 0.5 cm Electronically signed by: Iggy Roe MD 10/31/2024 07:38 AM EDT
--- OUTSIDE RECORDS SUMMARY | 2024-10-30 16:11 | XMS_ITS | Patient Health Record ---
Author Organization [facility] Address [address] [place] [address] Care Team Providers Care Flare Breaker Name Role Phone Audrey Burleson Primary Care Provider Josh Hinkle Unavailable [phone] Allergies Allergen (clinical drug ingredient) Drug/Non Drug [...] primary osteoarthritis of the ankle and/or foot (823940082) Primary osteoarthrit is, right ankle and foot (M19.071) Active confirmed Problem Localized, primary osteoarthritis of the ankle and/or foot (551399373) Primary osteoarthrit is, left ankle and foot (M19.072) Active confirmed Problem Acquired hallux valgus (18267901) Hallux valgus (acquired), right foot (M20.11) Active confirmed Problem Acquired hammer toe of right foot (2353352837326810) Other hammer toe(s) (acquired), right foot (M20.41) Active confirmed Problem Acquired hammer toe of left foot (0124361379086794) Other hammer toe(s) (acquired), left foot (M20.42) Active confirmed Plan Of Treatment Pending Test Test Name Order Date X ray : Foot, left 3V 12/13/2021 X ray : Foot, right 3V 12/13/2021 Insurance Providers Payer Name Payer Address Payer Phone Subscriber Number Group Number Insured Name Patient Relationship to Insured Coverage Start Date Coverage End Date Blue Benefits [address] [address] [place] [address] [id number] Prema Mccollum Self - patient is the [...]
== END 2024-10-30 15:53 | disposition home or self-care (01) ==
LOC: HO.US 15:52
PROVIDERS: PCP Nurse Practitioner Family; Visit Provider Student in an Organized Health Care Education/Training Program
DX: E04.2 Nontoxic multinodular goiter (principal)
CPT/HCPCS: 76536

== ENCOUNTER → 2024-10-30 15:55 | Outpatient (BNV) | payer OTHER, SELFPAY | PROVIDERS: PCP Nurse Practitioner Family; Visit Provider Radiology Diagnostic Radiology | DX: E04.2 Nontoxic multinodular goiter (principal) | CPT/HCPCS: 76536 ==

== ENCOUNTER 2024-11-18 08:02 | Outpatient (AMB) | payer OTHER, SELFPAY ==
--- OUTSIDE RECORDS SUMMARY | 2024-11-18 08:08 | XMS_ITS | Patient Health Record ---
Author Organization [facility] Address [address] [place] [address] Care Team Providers Care Pick Up Attendant Name Role Phone Audrey Burleson Primary Care Provider Josh Hinkle Unavailable [phone] Allergies Allergen (clinical drug ingredient) Drug/Non Drug [...] primary osteoarthritis of the ankle and/or foot (532125716) Primary osteoarthrit is, right ankle and foot (M19.071) Active confirmed Problem Localized, primary osteoarthritis of the ankle and/or foot (322440513) Primary osteoarthrit is, left ankle and foot (M19.072) Active confirmed Problem Acquired hallux valgus (67441805) Hallux valgus (acquired), right foot (M20.11) Active confirmed Problem Acquired hammer toe of right foot (5349226242328169) Other hammer toe(s) (acquired), right foot (M20.41) Active confirmed Problem Acquired hammer toe of left foot (0607982579939130) Other hammer toe(s) (acquired), left foot (M20.42) Active confirmed Plan Of Treatment Pending Test Test Name Order Date X ray : Foot, left 3V 12/13/2021 X ray : Foot, right 3V 12/13/2021 Insurance Providers Payer Name Payer Address Payer Phone Subscriber Number Group Number Insured Name Patient Relationship to Insured Coverage Start Date Coverage End Date Blue Benefits [address] [address] [place] [address] [id number] Prema Mccollum Self - patient is the [...]
--- NOTE | 2024-11-18 08:21 | MHC.OFFVIS ---
Vital Signs 11/18/24 08:22 Height 5 ft 8 in Weight 265 lb 3.457 oz BMI 40.3 BP 126/74 Blood Pressure Location Rt brachial Position Sitting Pulse 67 Pulse Source Pulse Oximeter Pulse Oximetry (%) 97 Oxygen Delivery Method Room Air Intake Visit Reasons: f/u hypothyroidism/MNG Intake Note: Patient present today for hypothyroidism and MNG. Accompanied by: Self / Same As Patient Allergies Iodinated Contrast Media [IV Contrast Dye] Allergy (Severe, Verified 11/18/24 08:22) Anaphylaxis erythromycin base [ERYTHROMYCIN BASE] Allergy (Intermediate, Verified 11/18/24 08:22) Hives Medication List - Last Reconciled 11/18/24 by Iesha Head MD cyclobenzaprine 5 mg PO Q8H PRN diclofenac sodium 75 mg PO BID 10 days ibuprofen 800 mg PO Q8H PRN 14 days levothyroxine 100 mcg PO DAILY meloxicam 15 mg PO DAILY methylphenidate HCl 10 mg PO BID metoprolol succinate ER 25 mg PO DAILY venlafaxine ER mg PO DAILY HPI Comments Details: 64-year-old female here today for follow up of multinodular goiter status post right hemithyroidectomy 01/25/2021, with postoperative hypothyroidism. HPI Initially diagnosed with multinodular thyroid in February 2020 with ultrasound of the thyroid revealing multiple bilateral large nodules. 05/14/2020: FNA biopsy of the right lower pole 2.9 cm and right midpole 1.4 cm nodules with benign cytology [place] category 2. At the time of the biopsy she was noted to have a large goiter that did appear to extend substernally. In addition she was complaining of compressive symptoms and hence 01/25/2021: Status post right hemithyroidectomy with Dr. Lawrence Macario at [facility]. Surgical pathology was benign. Also an incidental 1 intrathyroidal parathyroid tissue was removed. Postoperatively she developed hypothyroidism. She also did gained 50 lb since surgery. Compressive symptoms resolved. She was noted to have a left lower pole 1.1 cm thyroid nodule subsequently, 11/12/2021: FNA biopsy of the left lower pole nodule with benign cytology [place] category 2. 10/19/2022: Last thyroid ultrasound showed left superior subcentimeter TR 3 nodule, left mid subcentimeter 0.8 cm nodule which is solid, hypoechoic with punctate echogenic foci, TR 5 category which had mildly increased in size compared to 2020, however when I reviewed the images myself, this looks like a macrocalcification to be not a punctate echogenic foci, and a left inferior 0.9 cm solid, isoechoic TR 3 category nodule. No family history of thyroid cancer. Was in [place] at the time of [place] incident. She did not receive iodine prophylaxis. Currently continues on 100 mcg of levothyroxine daily Last set of labs August 2024: Showed normal TSH and normal free T4 Interval history 10/30/2024, ultrasound thyroid I reviewed the images myself which showed the left superior subcentimeter TR 4 nodule remained stable, another left superior 1 cm solid isoechoic nodule which is labeled as having punctate echogenic foci but I do not see this on the images, I think this is more of a TR 3 nodule. The left mid pole nodule has increased in size to 1 cm from 0.5 cm but is TR 3. We will continue to monitor. The left lower pole 1 cm TR 3 nodule remained stable. None of these meet criteria for FNA at this time, we will follow up in 1 year. Denies compressive sx Weight stable, bowel movements regular Physical exam General: sitting comfortably in no acute distress HEENT: normocephalic/atraumatic Neck: supple, symmetrical Cardiac: normal heart sounds Pulm: normal breath sounds B/L, no added breath sounds Laboratory Tests 07/15/24 08/10/24 07:39 13:10 TSH 5.00 H 2.02 Free T4 0.96 1.26 EXAMINATION: US THYROID 10/30/2024 HISTORY: E04.2 - Nontoxic multinodular goiter TECHNIQUE: Real-time grayscale ultrasound imaging was performed and images were reviewed. COMPARISON: Comparison is made with the prior examination dated 10/19/2022. FINDINGS: SIZE: The right thyroid lobe is surgically absent. The left thyroid lobe measures 3.8 x 1.3 x 1.4 cm. FLOW: Flow to the gland is normal. ECHOGENICITY: The echotexture of the gland is heterogeneous. NODULES: Numerous left thyroid nodules are again noted. The largest nodules are described below: Nodule #: 1 Location: Left upper pole measuring 8 x 5 x 7 mm (previously 8 x 5 x 6 mm). Shape: Wider than tall (0 points) Margins: Smooth (0 points) Echotexture: Hypoechoic (2 points) Composition: Mostly solid (2 points) Calcifications: None (0 points) Total points: 4 TIRADS: TR4: Moderately suspicious. Nodule #: 2 Location: Left upper pole measuring 10 x 4 x 8 mm (not seen previously). Shape: Wider than tall (0 points) Margins: Smooth (0 points) Echotexture: Indeterminate (1 point) Composition: Mostly solid (2 points) Calcifications: Punctate calcifications (3 points) Total points: 6 TIRADS: TR4: Moderately suspicious. Nodule #: 3 Location: Midportion of the left thyroid lobe measuring 11 x 6 x 7 mm (previously 5 x 4 x 4 mm). Shape: Wider than tall (0 points) Margins: Smooth (0 points) Echotexture: Indeterminate (1 point) Composition: Mostly solid (2 points) Calcifications: None (0 points) Total points: 3 TIRADS: TR3: Mildly suspicious. Nodule #: 4 Location: Lower pole of the left thyroid lobe measuring 11 x 9 x 11 mm (previously 9 x 7 x 9 mm). Shape: Wider than tall (0 points) Margins: Smooth (0 points) Echotexture: Isoechoic (1 point) Composition: Solid (2 points) Calcifications: None (0 points) Total points: 3 TIRADS: TR3: Mildly suspicious. US/US thyroid IMPRESSION: Multiple left thyroid nodules are again identified as described above. According to ACR Ti-RADS guidelines below, continued follow-up is recommended. US THYROID 10/19/22 CLINICAL INFORMATION: Nontoxic multinodular goiter. COMPARISON: Ultrasound thyroid 05/10/2021. CT soft tissue neck without contrast 06/12/2020. Ultrasound thyroid 02/12/2020. US-guided thyroid biopsy 11/12/2021. TECHNIQUE: Linear transducer grayscale and color Doppler examination with attention to the region of the thyroid. FINDINGS: SIZE: Measurements of the solitary left thyroid lobe and nodules are given in sagittal, anteroposterior and transverse dimensions respectively. Right Thyroid Lobe: Surgically absent. Left Thyroid Lobe: 3.9 x 1.3 x 1.4 cm, volume 3.8 mL. Previously 4.2 x 1.1 x 1.1 cm, volume 2.7 mL. Parenchyma: The gland echotexture is heterogeneous. Thyroid vascularity is normal. Isthmus: Surgically absent. Estimated total number of nodules greater than or equal to 1 cm: 0. Polystyrene Bead Molder nodules are described as follows: 1. Location: Left superior. Size: 0.4 x 0.3 x 0.4 cm, volume 0.03 mL. Previously: 0.3 x 0.3 x 0.4 cm, volume 0.02 mL. Nodule characteristics: Composition: Solid (2). Echogenicity: Hyperechoic (1). Shape: Not taller than wide (0). Margins: Smooth (0). Echogenic Foci: Macrocalcifications (1). ACR TI-RADS total points: 4 Previous: 3 ACR TI-RADS category: 4 Previous: 3 Significant change in size (>/= 20% in 2 dimensions and minimal increase of 2 mm or 50% or greater increase in volume): Yes Change in features: Yes Change in ACR TI-RADS risk category: Yes 2. Location: Left superior. Size: 0.5 x 0.4 x 0.4 cm, volume 0.04 mL. Previously: 0.4 x 0.3 x 0.5 cm, volume 0.03 mL. Nodule characteristics: Composition: Solid (2). Echogenicity: Cannot be determined (1). Shape: Not taller than wide (0). Margins: Smooth (0). Echogenic Foci: None (0). ACR TI-RADS total points: 3 Previous: 3 ACR TI-RADS category: 3 Previous: 3 Significant change in size (>/= 20% in 2 dimensions and minimal increase of 2 mm or 50% or greater increase in volume): No Change in features: No Change in ACR TI-RADS risk category: No 3. Location: Left mid. Size: 0.8 x 0.5 x 0.6 cm, volume 0.12 mL. Previously: 0.6 x 0.5 x 0.6 cm, volume 0.09 mL. Nodule characteristics: Composition: Solid (2). Echogenicity: Hypoechoic (2). Shape: Not taller than wide (0). Margins: Smooth (0). Echogenic Foci: Punctate echogenic foci (3). ACR TI-RADS total points: 7 Previous: 4 ACR TI-RADS category: 5 Previous: 4 Significant change in size (>/= 20% in 2 dimensions and minimal increase of 2 mm or 50% or greater increase in volume): No Change in features: Yes Change in ACR TI-RADS risk category: Yes 4. Location: Left inferior. Size: 0.9 x 0.7 x 0.9 cm, volume 0.3 mL. Previously: 1.1 x 0.7 x 0.9 cm, volume 0.36 mL. Nodule characteristics: Composition: Solid (2). Echogenicity: Isoechoic (1). Shape: Not taller than wide (0). Margins: Smooth (0). Echogenic Foci: None (0). ACR TI-RADS total points: 3 Previous: 3 ACR TI-RADS category: 3 Previous: 3 Significant change in size (>/= 20% in 2 dimensions and minimal increase of 2 mm or 50% or greater increase in volume): No Change in features: No Change in ACR TI-RADS risk category: No NODES: No lymphadenopathy is seen in the tissue surrounding the thyroid gland. US/US thyroid IMPRESSION: 1. Small left thyroid lobe nodules are seen, as detailed. 2. The right thyroid lobe and thyroid isthmus are surgically absent. No residual or recurrent mass lesion is seen within the corresponding former thyroid bed. Thyroid US: 05/10/2021 SIZE: Measurements of the solitary left thyroid lobe and nodules are given in sagittal, anteroposterior and transverse dimensions respectively. Right Thyroid Lobe: Surgically removed. Left Thyroid Lobe: 4.2 x 1.1 x 1.1 cm, volume 2.7 mL. Previously 4.2 x 1.1 x 1.2 cm, volume 2.9 mL. Parenchyma: The gland echotexture is heterogeneous. Thyroid vascularity is normal. Isthmus: Surgically removed. Estimated total number of nodules greater than or equal to 1 cm: 1. Polystyrene Bead Molder nodules are described as follows: 1. Location: Left superior. Size: 0.31 x 0.29 x 0.4 cm, volume 0.02 mL. Previously: 0.42 x 0.33 x 0.4 cm, volume 0.02 mL. Nodule characteristics: Composition: Solid (2). Echogenicity: Hyperechoic (1). Shape: Not taller than wide (0). Margins: Smooth (0). Echogenic Foci: None (0). ACR TI-RADS total points: 3 Previous: n/a ACR TI-RADS category: 3 Previous: n/a Significant change in size (>/= 20% in 2 dimensions and minimal increase of 2 mm or 50% or greater increase in volume): No Change in features: No Change in ACR TI-RADS risk category: n/a 2. Location: Left superior. Size: 0.38 x 0.34 x 0.51 cm, volume 0.03 mL. Previously: 0.7 x 0.51 x 0.5 cm, volume 0.09 mL. Nodule characteristics: Composition: Solid (2). Echogenicity: Hyperechoic (1). Shape: Not taller than wide (0). Margins: Smooth (0). Echogenic Foci: None (0). ACR TI-RADS total points: 3 Previous: n/a ACR TI-RADS category: 3 Previous: n/a Significant change in size (>/= 20% in 2 dimensions and minimal increase of 2 mm or 50% or greater increase in volume): No Change in features: No Change in ACR TI-RADS risk category: n/a 3. Location: Left mid. Size: 0.61 x 0.48 x 0.61 cm, volume 0.09 mL. Previously: 0.71 x 0.51 x 0.59 cm, volume 0.11 mL. Nodule characteristics: Composition: Solid/almost completely solid (2). Echogenicity: Hypoechoic (2). Shape: Not taller than wide (0). Margins: Smooth (0). Echogenic Foci: None (0). ACR TI-RADS total points: 4 Previous: n/a ACR TI-RADS category: 4 Previous: n/a Significant change in size (>/= 20% in 2 dimensions and minimal increase of 2 mm or 50% or greater increase in volume): No Change in features: No Change in ACR TI-RADS risk category: n/a 4. Location: Left inferior. Size: 1.1 x 0.74 x 0.86 cm, volume 0.36 mL. Previously: 1.3 x 0.7 x 0.81 cm, volume 0.39 mL. Nodule characteristics: Composition: Solid/almost completely solid (2). Echogenicity: Hyperechoic (1). Shape: Not taller than wide (0). Margins: Smooth (0). Echogenic Foci: None (0). ACR TI-RADS total points: 3 Previous: n/a ACR TI-RADS category: 3 Previous: n/a Significant change in size (>/= 20% in 2 dimensions and minimal increase of 2 mm or 50% or greater increase in volume): No Change in features: No Change in ACR TI-RADS risk category: n/a NODES: No lymphadenopathy is seen in the tissue surrounding the thyroid gland. CT Neck: 06/12/2020 FINDINGS: The right lobe of the thyroid gland is enlarged measuring 6 x 3 x 3 cm in sagittal AP and transverse dimension. The left lobe of the thyroid gland is normal in size measuring 3.6 x 1.2 x 1.5 cm in sagittal AP and transverse dimension. There are multiple bilateral thyroid nodules. The largest thyroid nodule in the mid to lower pole of the right lobe measures approximately 2.8 x 2.8 x 2.3 cm, appears complex cystic and partially calcified. No substernal extension is seen. No tracheal impingement or displacement is seen. There is food seen in the cervical and visualized thoracic esophagus. There are no enlarged lymph nodes. The visualized intracranial structures are normal. The visualized orbits, paranasal sinuses, mastoid air cells and middle ears are clear. Temporomandibular joints are normal. Salivary glands are normal. The nasopharynx, oropharynx and hypopharynx are normal. There is multilevel degenerative spondylosis, degenerative disc disease and facet arthritis. There is curvature of the lower cervical and upper thoracic spine to the right. CT/CT soft tissue neck wo con IMPRESSION: Enlarged right thyroid lobe. Bilateral thyroid nodules. The largest nodule is in the mid and lower pole of the right lobe, measures 3.6 x 1.2 x 1.5 cm, appears complex cystic with calcifications. No mass effect on the trachea or deviation is seen. The cervical and visualized thoracic esophagus is filled with food. Clinical correlation is recommended, i.e., has the patient recently eaten? [facility] Medical History JULIO (obstructive sleep apnea) Thoracic spondylosis Lumbar spondylolysis IBS (irritable bowel syndrome) GERD (gastroesophageal reflux disease) Postoperative hypothyroidism Dysphagia Endometrial cancer HTN (hypertension) Vitamin D deficiency Surgical History H/O colonoscopy History of endometrial biopsy Hx of partial thyroidectomy Hx of eye surgery Hx of total hysterectomy Family History Father High cholesterol Mother Dementia Sister Ovarian cancer Social History Household Members: None Are you a primary summer child caregiver to a significant other at home: No Do you presently have visiting nurse or other home services: No Alcohol intake: never Patient Tobacco Use Status: Never used Tobacco Physical Exam Vital Signs: Last Vital Signs Pulse 67 11/18/24 08:22 BP 126/74 11/18/24 08:22 Pulse Ox 97 11/18/24 08:22 Oxygen Delivery Method Room Air 11/18/24 08:22 BMI result Body Mass Index 40.3 Assessment & Plan Assessment & Plan (1) Multinodular thyroid: Code(s): E04.2 - Nontoxic multinodular goiter Category: Medical Plan: 64-year-old female with no family history of thyroid cancer, with personal history of exposure to [place] could not who did not receive iodine prophylaxis, with a history of multinodular goiter, status post right hemithyroidectomy [place] [address] Lawrence Macario at [facility] with benign surgical pathology, who has been followed for postoperative hypothyroidism and left-sided thyroid nodules. Most recent blood work from August 2024 shows normal thyroid function now that she has med more adherent with her medication. She continues on levothyroxine 100 mcg daily. 10/30/2024, ultrasound thyroid I reviewed the images myself which showed the left superior subcentimeter TR 4 nodule remained stable, another left superior 1 cm solid isoechoic nodule which is labeled as having punctate echogenic foci but I do not see this on the images, I think this is more of a TR 3 nodule. The left mid pole nodule has increased in size to 1 cm from 0.5 cm but is TR 3. We will continue to monitor. The left lower pole 1 cm TR 3 nodule remained stable. None of these meet criteria for FNA at this time, we will follow up in 1 year. She does not have any compressive symptoms or symptoms of hypo or hyperthyroidism. Plan: -ordered ultrasound of the thyroid to be done in October 2025 with follow up in November 2025. -continue levothyroxine 100 mcg daily (2) Postoperative hypothyroidism: Code(s): E89.0 - Postprocedural hypothyroidism Category: Medical Plan: She is clinically and biochemically euthyroid, last set of labs normal from August 2024. Plan: -continue levothyroxine 100 mcg daily. -repeat labs ordered to be done prior to next visit Plan See above Orders: Orders US thyroid 10/15/25 E04.2 - Nontoxic multinodular goiter Thyroid Stimulating Hormone 1 Year E04.2 - Nontoxic multinodular goiter, E89.0 - Postprocedural hypothyroidism Free T4 (Free Thyroxine) 1 Year E04.2 - Nontoxic multinodular goiter, E89.0 - Postprocedural hypothyroidism Medications: Refilled levothyroxine 100 mcg PO DAILY 90 tabs 4RF Patient Instructions: do ultrasound of the thyroid in October 2025, someone will call you to schedule this Please make sure this is done a few weeks prior to your next follow up in November 2025 Also do blood work a few days prior to your follow up orders are in continue levothyroxine 100 mcg daily Coding Level of Care Code Est Pt Level 3 (64152) Diagnoses Multinodular thyroid E04.2 Postoperative hypothyroidism E89.0
[2024-11-18 08:22] VITALS: BP 126/74; PULSE 67; O2SAT 97; BMI 40.3
== END 2024-11-18 08:51 | disposition home or self-care (01) ==
LOC: HO.ENCR 08:03
PROVIDERS: PCP Nurse Practitioner Family; Visit Provider Student in an Organized Health Care Education/Training Program
DX: E04.2 Nontoxic multinodular goiter (principal); E89.0 Postprocedural hypothyroidism
CPT/HCPCS: 99213

== ENCOUNTER → 2024-11-18 08:02 | Outpatient (BNVA) | payer OTHER, SELFPAY | PROVIDERS: PCP Nurse Practitioner Family; Visit Provider Student in an Organized Health Care Education/Training Program ==

== ENCOUNTER 2025-03-11 11:29 | Emergency (ER) | payer OTHER, SELFPAY ==
--- NOTE | ~2025-03-11 | CT_ITS ---
EXAMINATION: CT HEAD WITHOUT CONTRAST CLINICAL INFORMATION: fall. Brain feels foggy COMPARISON: 07/28/2024 TECHNIQUE: Contiguous axial imaging was performed from the skull base to vertex without intravenous administration of contrast. This CT examination was performed using dose optimization techniques as appropriate, variously including the following: *Automated exposure control *Adjustment of mA and/or kV according to patient size (this includes techniques or standardized protocols for targeted exams where dose is matched to indication/reason for exam; i.e. extremities or head) *Use of iterative reconstruction technique FINDINGS: There is no acute ischemic change. There is no intracranial hemorrhage. There is no mass-effect or midline shift. Basal cisterns and ventricles are within normal limits for age/cerebral volume. Orbits are symmetrical and unremarkable. Paranasal sinuses and mastoid air cells are pneumatized. There are no bony abnormalities. CT/CT head/brain wo IV con IMPRESSION: No acute intracranial abnormality. Electronically signed by: Julian Brady MD 03/11/2025 01:11 PM EDT
--- NOTE | ~2025-03-11 | CT_ITS ---
EXAMINATION: CT CERVICAL SPINE WITHOUT CONTRAST CLINICAL INFORMATION: Fall COMPARISON: None available. TECHNIQUE: Axial imaging was performed from the base of the skull through T2 without IV contrast. Coronal and sagittal reformatted images were generated from the original axial data set. ALARA: The examination used one or more of the following radiation dose reduction techniques: Automated exposure control, iterative reconstruction, and/or adjustment of mA and/or KV. FINDINGS: Soft tissues are unremarkable. There is straightening of cervical lordosis. There is multilevel degenerative changes with subtle anterolisthesis at C3-4 C4-5. There is disc space narrowing, most advanced at C5-6. There are endplate and uncovertebral osteophytes as well as facet osteophytes. Facet osteophytes are most advanced at C2-3, C4, C4-5. There is also sclerosis and osteophytes involving the anterior C1-C2 articulation. No fracture lines are identified. CT/CT cervical spine wo IV con IMPRESSION: There is straightening of the expected cervical lordosis. This can be idiopathic, but can also be related to degenerative change, muscle spasm, or posterior soft tissue injury. No fracture is demonstrated Electronically signed by: Julian Brady MD 03/11/2025 01:08 PM EDT
[2025-03-11 11:41] VITALS: BP 159/73; PULSE 68; RESP 20; TEMP 37.1; O2SAT 98; BMI 40.0
--- NOTE | 2025-03-11 11:47 | ED_ITS ---
HPI - General Adult General Chief complaint: Fall Stated complaint: Head injury Time Seen by Provider: 03/11/25 14:14 Source: patient, RN notes reviewed and old records reviewed Mode of arrival: ambulatory Limitations: no limitations History of Present Illness ED Provider: Von HPI narrative: Patient is a 65-year-old female with history of concussion sustained after a fall earlier this year, IBS, GERD, obesity, hypothyroidism, HTN presenting to the emergency department for evaluation after a fall on Monday. Patient reports that she was at her sister's home and tripped and fell due to uneven pavement. She notes that this is the same area where she fell earlier this year. She denies head strike or loss of consciousness. She does note minor abrasions to her knees. She presented today for evaluation due to feeling as though she has had memory impairment since her initial fall in the beginning of this year. States that her coworkers have noticed her memory has not been as sharp as in the past. She has mentioned this to her PCP who referred her to a neurologist, however, the neurologist was not covered by her insurance. She denies headaches, vision changes, dizziness. She is not anticoagulated. complaint: memory changes Onset (ago): month(s) Related Data Home Medications ?Medication ?Instructions ?Recorded ?Confirmed methylphenidate HCl 10 mg tablet 10 mg PO BID 12/13/23 11/18/24 metoprolol succinate 25 mg 25 mg PO DAILY 06/13/24 tablet,extended release 24 hr venlafaxine 150 mg tablet,extended mg PO DAILY 5 11/18/24 release 24 hr Previous Rx's ?Medication ?Instructions ?Recorded diclofenac sodium 75 mg 75 mg PO BID pain 10 days #2 0 tabs 12/13/23 tablet,delayed release ibuprofen 800 mg tablet 800 mg PO Q8H PRN pain 14 da ys #42 06/22/24 tabs cyclobenzaprine 5 mg tablet 5 mg PO Q8H PRN Muscle Spa sm #20 10/14/24 tabs meloxicam 15 mg tablet 15 mg PO DAILY #15 tabs 10/03 07/30 levothyroxine 100 mcg tablet 100 mcg PO DAILY #90 tabs 11/18/24 Allergies Allergy/AdvReac Type Severity Reaction Status Date / Time Iodinated Contrast Media (IV Allergy Severe Anaphylaxis Verified 03/11/25 11:41 Contrast Dye) erythromycin base Allergy Intermediate Hives Verified 03/11/25 11:41 (ERYTHROMYCIN BASE) Review of Systems 2 Review of Systems: as per HPI Yes all other systems are reviewed and are negative Constitutional: Constitutional: Reports as per HPI [facility] Past Medical History Medical History JULIO (obstructive sleep apnea) Thoracic spondylosis Lumbar spondylolysis IBS (irritable bowel syndrome) GERD (gastroesophageal reflux disease) Postoperative hypothyroidism Dysphagia Endometrial cancer HTN (hypertension) Vitamin D deficiency Surgical History H/O colonoscopy History of endometrial biopsy Hx of partial thyroidectomy Hx of eye surgery Hx of total hysterectomy Family History Family History Father High cholesterol Mother Dementia Sister Ovarian cancer Social History Social History Household Members: None Are you a primary manager intensive care unit to a significant other at home: No Do you presently have visiting nurse or other home services: No Alcohol intake: never Patient Tobacco Use Status: Never used Tobacco Advance Directives: No Advance Directives Information Provided: No Physical Exam ED Vital Signs: Vital Signs - 24 hr 03/11/25 11:41 03/11/25 15:31 Temperature 98.7 F 98.7 F Pulse Rate 68 71 Respiratory Rate 20 18 Blood Pressure 159/73 H 150/70 H Pulse Oximetry 98 96 Oxygen Delivery Method Room Air Room Air BMI result Body Mass Index 40.0 Vital signs have been reviewed and appear to be correct. Blood pressure normal. Heart rate normal. Respiratory rate normal. Temperature normal. Oxygen saturation normal. Const General: cooperative, healthy appearing and no acute distress Orientation/consciousness: oriented to person, oriented to place, oriented to time and patient oriented x3 Limitations: no limitations HENMT Head: Yes normocephalic and Yes atraumatic Ears: external ears normal General nose exam: Normal external nose present Face and sinus: Yes face symmetric Mouth: oropharynx normal and moist mucous membranes Throat: Yes uvula midline Eyes Pupils: Equal, round and reactive pupils present Neck Neck: Yes normal visual inspection and Yes supple Resp Effort & Inspection: normal respiratory effort and able to speak in complete sentences Auscultation: clear to auscultation bilaterally Cardio Rate: regular rate Rhythm: regular rhythm Heart sounds: S1 normal heart sound present and S2 normal heart sound present GI Palpation (GI): Soft to palpation and nontender Auscultation: normoactive bowel sounds General: Yes no CVA tenderness Back/Spine/Pelvis Back: no CVA tenderness Skin General skin exam: elasticity normal and turgor normal Neuro General: oriented to person, oriented to place, oriented to time, patient oriented x3, moves all extremities, no focal motor deficits and CN's II-XI intact bilaterally Cranial nerves: Yes Equal, round and reactive pupils present Cognition (Neuro): normal cognition Extrem General: Yes full ROM, Yes no pedal edema and Yes no calf tenderness Psych Mental Status: mental status grossly normal Affect: normal affect Thought process: Normal thought process present Course Course Course Narrative: RME: 65-year-old female presents to ED for memory issues and fogginess in the brain since falling June 2024. Patient was sent by primary care provider for evaluation. Patient states she recently fell this past Monday but has no new complaints since fall just a fogginess in the brain and memory issues since June. NIH score is 0. Patient well-appearing. Labs imaging ordered Medical Decision Making Medical Decision Making MDM Narrative: Patient is a 65-year-old female with history of concussion sustained after a fall earlier this year, IBS, GERD, obesity, hypothyroidism, HTN presenting to the emergency department for evaluation after a fall on Monday. On exam patient is awake, A+Ox3, VS WNL, afebrile, normal neurological exam without focal deficits, physical exam findings as above. Given reported symptoms and physical exam findings, initial differential includes but is not limited to age- associated memory impairment, metabolic disturbance. Unlikely ICH, CT head and c-spine ordered by triage provider. Labs unremarkable. CT head and c-spine notable for no evidence of ICH or large mass or vertebral fracture/subluxation. My interpretation is in agreement with the radiologist's interpretation. Patient unable to provide urine specimen in the ED, however, denies any urinary symptoms. Results discussed with patient and all questions answered. Will refer to neurology for further evaluation of symptoms. Also recommended follow up with PCP to see if any additional lab work can be obtained. Return precautions discussed. Patient verbalized understanding of and agreement with plan Differential Diagnosis Differential Diagnoses: The differential diagnosis associated with the presentation includes As per [facility] Admission/Observation Consideration of admission/observation: Escalation of care including admission/observation considered Patient would have been admitted to the hospital and transferred to appropriate facility had their clinical presentation warranted hospital admission. Lab Data [facility] Lab Attestation statement: I reviewed the patient's lab results. As per [facility] 03/11/25 12:01 03/11/25 12:01 Labs: Lab Results 03/11/25 Range/Units 12:01 WBC 10.4 (4.8-10.8) X10*3/uL RBC 4.77 (4.20-5.50) X10*6/uL Hgb 14.3 (12.0-16.0) g/dl Hct 43.1 (37.0-47.0) % MCV 90.4 (80.0-98.0) fL MCH 30.0 (27.0-33.0) pg MCHC 33.2 (31.0-35.0) g/dl RDW 13.8 (11.0-16.0) % Plt Count 242 (160-400) X10*3/uL MPV 11.3 (9.4-12.3) fL Immature Gran % (Auto) 0.2 (0.0-0.4) % Neut % (Auto) 74.1 H (45-73) % Lymph % (Auto) 20.8 (20-40) % Taney % (Auto) 3.7 (2-11) % Eos % (Auto) 0.9 (0-4) % Baso % (Auto) 0.3 (0-2) % Lymph # (Auto) 2.2 (1.2-4.9) X10*3/uL Taney # (Auto) 0.4 (0.1-1.2) X10*3/uL Eos # (Auto) 0.1 (0.0-0.4) X10*3/uL Baso # (Auto) 0.0 (0.0-0.2) X10*3/uL Abs Immat Gran (auto) 0.02 (0.00-0.03) X10*3/uL Absolute Neuts (auto) 7.7 (2.0-8.3) x10*3/uL Absolute Nucleated RBC 0.000 (0.0-0.012) X10*3/uL Nucleated RBC % (auto) 0.0 (0.0-0.2) /100WBC Sodium 143 (135-145) mmol/L Potassium 4.2 (3.3-5.1) mmol/L Chloride 108 (96-108) mmol/L Carbon Dioxide 27 (22-29) mmol/L Anion Gap 12 (12-20) BUN 22 H (9-16) mg/dL Creatinine 0.79 (0.5-1.4) mg/dL Estim Creat Clear Calc 87.8 Estimated GFR > 60 Random Glucose 168 H (60-115) mg/dL Calcium 9.4 (8.4-10.2) mg/dL Total Bilirubin 0.5 (0.0-1.0) mg/dL AST 41 H (5-31) U/L ALT 28 (0-31) U/L Alkaline Phosphatase 105 (39-117) U/L Ammonia 27 (13-55) umol/L Troponin I High Sens < 2.7 (<3.5-17.0) ng/L Total Protein 7.4 (6.5-8.0) g/dL Albumin 4.4 (3.5-5.0) g/dL Independent Interpretation I performed an independent interpretation of an: CT Scan Interpretation: LCT head and c-spine without evidence of ICH or cervical fracture/subluxation. Radiology Impression Discussion of test interpretation with radiology: I have reviewed the radiologist's reading. Radiologist Impression: CT/CT head/brain wo IV con IMPRESSION: No acute intracranial abnormality. CT/CT cervical spine wo IV con IMPRESSION: There is straightening of the expected cervical lordosis. This can be idiopathic, but can also be related to degenerative change, muscle spasm, or posterior soft tissue injury. External Record Review External record reviewed: Inpatient record, Office record and Outpatient record Discharge Plan Discharge Clinical Impression: Memory changes, Fall from standing Patient Disposition: Home, Self-Care Instructions: Cognitive Disorders after Traumatic Brain Injury (ED), Fall Prevention (ED) Additional Instructions: You were evaluated in the emergency department today for injuries sustained after a fall, as well as memory issues. Your evaluation did not show evidence of conditions requiring emergent medical treatment at this time. We are referring you to neurology for further evaluation of your symptoms. We recommend that you schedule a follow up appointment with your PCP as well to discuss whether you have had vitamin D, vitamin B, and thyroid levels checked. Return to the emergency department if you develop a severe headache, persistent vomiting, difficulty performing everyday tasks, severe dizziness, or any other new or concerning symptoms. Prescriptions: No Action methylphenidate HCl 10 mg tablet 10 mg PO BID diclofenac sodium 75 mg tablet,delayed release (DR/EC) 75 mg PO BID 10 Days Qty: 20 0RF ibuprofen 800 mg tablet 800 mg PO Q8H PRN (Reason: pain) 14 Days Qty: 42 0RF levothyroxine 100 mcg tablet 100 mcg PO DAILY Qty: 90 4RF cyclobenzaprine 5 mg tablet 5 mg PO Q8H PRN (Reason: Muscle Spasm) Qty: 20 0RF meloxicam 15 mg tablet 15 mg PO DAILY Qty: 15 0RF metoprolol succinate 25 mg tablet extended release 24 hr 25 mg PO DAILY venlafaxine 150 mg tablet extended release 24hr PO DAILY Referrals: Liliana Bach MD [Physician, Neurology] Clinical Impression: Memory changes Stand Alone Forms: Work/School Release Discharge Date/Time: 03/11/25 15:35 Print Language: Yemeni
--- NOTE | 2025-03-11 11:47 | ECG_ITS ---
Test Reason : FALL Blood Pressure : */* mmHG Vent. Rate : 88 BPM Atrial Rate : 88 BPM P-R Int : 132 ms QRS Dur : 86 ms QT Int : 366 ms P-R-T Axes : 35 20 47 degrees QTcB Int : 442 ms Normal sinus rhythm Normal ECG When compared with ECG of 28-Feb-2004 01:27, No significant change was found Referred By: Toñito Wisdom Electronically Signed By: SHAILESH GALE MD
[2025-03-11 12:06] LABS: MANUAL DIFF FLAG NO
[2025-03-11 12:07] LABS: Hematocrit 43.1 % (37.0-47.0); Hemoglobin 14.3 g/dl (12.0-16.0); Imm Gran Abs Auto 0.02 X10*3/uL (0.00-0.03); Imm Gran Pct Auto 0.2 % (0.0-0.4); Lymphocytes Absolute Auto 2.2 X10*3/uL (1.2-4.9); Mean Corpuscular HGB Conc 33.2 g/dl (31.0-35.0); Mean Corpuscular Hemoglobin 30.0 pg (27.0-33.0); Mean Corpuscular Volume 90.4 fL (80.0-98.0); NRBC Abs Auto 0.000 X10*3/uL (0.0-0.012); NRBC Pct Auto 0.0 /100WBC (0.0-0.2); Platelet Count 242 X10*3/uL (160-400); Red Blood Count 4.77 X10*6/uL (4.20-5.50); White Blood Count 10.4 X10*3/uL (4.8-10.8)
[2025-03-11 12:15] LABS: Ammonia 27 umol/L (13-55)
[2025-03-11 12:22] LABS: Alanine Aminotransferase 28 U/L (0-31); Albumin Level 4.4 g/dL (3.5-5.0); Alkaline Phosphatase 105 U/L (39-117); Anion Gap 12 (12-20); Aspartate Amino Transferase 41 U/L (5-31); Blood Urea Nitrogen 22 mg/dL (9-16); Calcium 9.4 mg/dL (8.4-10.2); Carbon Dioxide 27 mmol/L (22-29); Chloride 108 mmol/L (96-108); Creatinine Clr Calc Pharmacy 87.8; Estimated Glomerular Filt Rate > 60; Potassium 4.2 mmol/L (3.3-5.1); Sodium 143 mmol/L (135-145); Total Protein 7.4 g/dL (6.5-8.0)
[2025-03-11 12:27] LABS: Troponin-I High Sensitivity < 2.7 ng/L (<3.5-17.0)
[2025-03-11 15:31] VITALS: BP 150/70; PULSE 71; RESP 18; TEMP 37.1; O2SAT 96
--- OUTSIDE RECORDS SUMMARY | 2025-03-11 18:16 | XMS_ITS | Clinical Summary ---
Author Organization [facility] Address [address] [facility] [address] [place] [address] Phone Care Team Providers Care Outbound Sales Consultant Name Role Phone VipinMaame wheelerfaisal Merida DO Unavailable Audrey Burleson [facility] Unavailable [phone] Andres Delacruz MD Unavailable Audrey Burleson [facility] Primary Care Provider [phone] Allergies Active Allergy Reactions Criticality Noted Date Comments Erythromycin Hives 05/17/2017 Iodinated Contrast Media Shortness Of Breath,Dizziness High 12/09/[address] contrast dye adverse drug reactin Medications acetaminophen (TYLENOL) 325 mg tablet Take 650 mg by mouth every 4 (four) hours as needed for mild pain. Active ibuprofen (ADVIL,MOTRIN) 200 MG tablet Take 400 mg by mouth every 6 (six) hours as needed for pain (specific location in comments). Active venlafaxine (EFFEXOR-XR) 37.5 MG 24 hr capsule Take 150 mg by mouth daily. Active methylphenidat e HCl (RITALIN) 10 MG tablet Take 10 mg by mouth 2 (two) times a day. Active levothyroxine (SYNTHROID, LEVOTHROID) 100 MCG tablet Take 100 mcg by mouth every morning. Active metoprolol succinate (TOPROL-XL) 25 MG 24 hr tabletIndicati ons:Essential hypertension,A nxiety state TAKE ONE TABLET BY MOUTH EVERY DAY 90 tablet 3 5 Active buPROPion (WELLBUTRIN XL) 300 MG ER 24 hr tablet Take 1 tablet (300 mg total) by mouth daily. 30 tablet 1 2 022 Discontinued Active Problems Problem Noted Date Diagnosed Date Memory loss or impairment 02/26/2025 Assessment & Plan (02/28/2025 8:40 AM EDT): Will work on memory screening - referral for neuropsych evaluation. There is a question of this memory issue being from a concussion? Referral done S/P partial thyroidectomy 10/01/2024 Concussion with no loss of consciousness 025 Left ear pain 06/07/2023 Assessment & Plan (06/07/2023 4:00 PM EST): Cortes presents for intermittent left ear pain-last episode was yesterday and this morning. She notes that this is happening to her more episodically over the past 5 years. She is unsure why. I put a referral into ENT for consult and I also wrote for prednisone-50 mg-to take 1 tablet as needed episodically and to call if this gets worse. She will call if there are any other issues or concerns. She understands and agrees. S/P total hysterectomy 01/30/2023 History of endometrial cancer 09/18/2019 Family history of ovarian cancer 09/12/2017 Severe episode of recurrent major depressive dis order 05/17/2017 Assessment & Plan (02/26/2025 4:21 PM EDT): Reviewed today. Phq-9 = 22. No SI. Likely worse secondary to memory issues - will work on memory issues and plan to monitor. Cortes will continue to take her medication. - Prudence is her therapist, sees her every 3 wks Assessment & Plan (07/12/2021 9:13 AM EST): Uncontrolled, no benefit/adverse effect from wellbutrin at 150 mg daily, increase this to 300 mg, schedule with behavioral health, follow up not later than 4 wks. Reminded about labs - she needs these done at a [place] lab site, she is going to call back with the specific lab information so we can fax orders. Assessment & Plan (06/21/2021 5:10 PM EST): We are going to add wellbutrin XR starting at 150 mg daily, will also request consult with behavioral health. PHQ-9 = 24 today; She'll continue on celexa 20 mg daily which she has been taking with some benefit for past year (notes prior poor tolerance of prozac and zoloft) Hypertension 05/17/2017 Overview (03/17/2020): Hctz, has never been on other meds Assessment & Plan (06/21/2021 5:11 PM EST): Continue HCTZ and toprol Mixed hyperlipidemia 05/17/2017 Obesity 05/17/2017 Resolved Problems Problem Noted Date Diagnosed Date Resolved Date Fall 07/04/2024 02/26/2025 Assessment & Plan (07/04/2024 1:07 PM EST): Cortes presents for follow up after a fall on 06/20. She was diagnosed with a concussion and continues to experience difficultly concentrating and tearfulness. Neuro exam grossly intact today. She has not been following cognitive rest. We discussed expected course of symptoms following concussion. Encouraged to begin cognitive rest and reduce work schedule. She will continue with ice/heat on arm and ibuprofen PRN. Encouraged to follow up if symptoms worsen. Thyroid nodule 01/29/2020 10/01/2024 Assessment & Plan (01/29/2020 10:16 AM EDT): Prema had a CT on 01/27/20 this showed a thyroid nodule. I ordered a US of the thyroid today to investigate. She will call if there is any other issues. She understands and agrees. Puncture wound 01/29/2020 06/21/2021 Assessment & Plan (01/29/2020 10:17 AM EDT): There is a healing wound to her right big toe. Routine wound heal guidance given today. She will call if there is any other issues. She understands and agrees. She was given a Td vaccine today. Viral URI with cough 07/07/2017 018 Assessment & Plan (07/07/2017 8:44 AM EST): Prema Mccollum presents for a viral URI with a cough and she was advised to undergo symptomatic treatment reviewed in the office today. She had a negative rapid flu test in the office today. she will call if this does not improve over the next week. she understands and agrees with this plan. Right ankle pain 05/17/2017 02/26/2025 Lightheadedness 05/17/2017 09/12/2017 Encounters Date Type Department Care Team Description 03/11/2025 Telephone [facility] [address] [place] [address] Audrey Burleson FNP Follow-up (ED on 03/11/2025) 03/11/2025 Telephone [facility] [address] [place] [address] Audrey Burleson FNP reported a fall 02/26/2025 4:00 PM EDT Office Visit [facility] [address] [place] [address] Shamar Lee, Memory loss or impairment (Primary Dx); Severe episode of recurrent major depressive disorder, without psychotic features; S/P partial thyroidectomy 02/20/2025 Telephone [facility] [address] [place] [address] Audrey Burleson FNP Triage (Yellow + memory/cognitive issues + 3 months) from Last 3 Months Immunizations Immunization Administration Dates Next Due COVID-19 (Pre-03/27) Pfizer Vaccine, mRNA, PF 09/24/2021,06/13/2020,05/23/2020 COVID-19 Pfizer Comirnaty Vaccine 12+ 04/17/2023 DTP-Hib 04/08/2021 INFLUENZA, SPLIT VIRUS, TRIVALENT PF 02/29/2024 INFLUENZA, SPLIT VIRUS, TRIV ALENT W/ PRESERVATIVE IM 04/01/2016 Influenza Quadrivalent Adjuv anted Preservative Free IM 03/24/2023 Influenza Quadrivalent Preservative Free IM 11/2021,03/13/2019 Influenza Quadrivalent w/ Preservative IM 2016 MMR 02/08/1995,12/12/1994 Pneumococcal conjugate PCV20 10/01/2024 RSV Vaccine (monovalent, adjuvanted) 04/17/2023 Td (adult) 5 Lf Tetanus Toxo id, PF, Adsorbed 03/06/2006 Td (adult),2 Lf Tetanus Toxo id, PF, Adsorbed 01/29/2020 Tdap 10/05/2012 Zoster live 10/05/2012 Family History Medical History Relation Comments Heart attack Father Hyperlipidemia Father Heart attack Mother Stroke Mother Ovarian cancer Sister Relation Status Comments Father Mother Sister Social History Tobacco Use Types Packs/Day Years Used Date Smoking Tobacco: Never Smokeless Tobacco: Never Tobacco Cessation:Counseling Given: Not Answered Alcohol Use Standard Drinks/Week Comments No 0 (1 standard drink = 0.6 oz pur e alcohol) Child or Family Care Answer Date Record ed Do you have problems with on e of the following making it difficult for you to work, study, or receive health care? No 09/27/2024 Education Answer Date Recorded Are you interested in help w ith more adult education (for example, completing high school, GED, job training, learning the B[place] language, technical skills, or developing parenting skills)? No 08/01/2023 Are you concerned about learning? Not on file 08/01/2023 No 08/01/2023 Yes 08/01/2023 Food Answer Date Recorded Within the past 6 months we worried whether our food would run out before we got money to buy more. Never True 09/27/2024 Within the past 6 months the food we bought just didn't last and we didn't have enough money to get more. Never True Residential Stability Answer Date Recor ded What is your housing situation today? I have semaj sing 09/27/2024 How many times have you move d in the past 12 months? Zero (I did not move) 09/27/2024 Paying for Meds Answer Date Recorded Do you have trouble paying for medicines? No 09/27/2024 Paying Utility Bills Answer Date Record ed Do you have trouble paying your heating or elect ricity bill? No 09/27/2024 Transportation Answer Date Recorded Has the lack of transportati on kept you from medical appointments or from getting medications? No 09/27/2024 Unemployment Answer Date Recorded Are you currently unemployed or working on a part-time or temporary basis, and looking for work? No 12/06/2020 Digital Access Answer Date Recorded No 09/27/2024 Yes 09/27/2024 Do you have reliable internet access at home? Ye s 09/27/2024 Do you have a device (e.g., phone, tablet, computer) with a working camera? Yes 09/27/2024 Intimate Partner Violence Answer Date R ecorded Denied Basic Needs Not on file 09/27/2024 In the past 12 months have y ou been in a relationship with a person who hurts, threatens, or tries to control you? No 09/27/2024 Worried food would run out Not on file 09/27 In the past 12 months have y ou been in a relationship with a person who hurts, threatens, or tries to control you? No 09/27/2024 Comments Unknown Sex and Gender Information Value Date Recorded Sex Assigned at Female 12/06/2020 8:48 AM EDT Legal Sex Female 9:51 PM EDT Gender Identity Female 12/06/2020 8:48 AM EDT Sexual Orientation Bisexual 09/08/2021 8: 17 AM EDT Last Filed Vital Signs Vital Sign Reading Time Taken Comments Blood Pressure 122/70 02/26/2025 3:25 PM EDT Pulse 83 02/26/2025 3:25 PM EDT Temperature 36.6 C (97.8 F) 02/26/2025 3:25 PM EDT Respiratory Rate - - Oxygen Saturation 97% 02/26/2025 3:25 PM EDT Inhaled Oxygen Concentration - - Weight 116.6 kg (257 lb) 02/26/2025 3:25 PM EDT Height 170.8 cm (5' 7.24 ) 08/02/2023 8:01 AM ES T Body Mass Index 39.96 08/02/2023 8:01 AM EST Plan of Treatment Upcoming Encounters Date Type Department Care Team (Late st Contact Info) Description 03/20/2025 12:00 PM EDT Office Visit [facility] [address] [place] [address] Audrey Burleson FNP [address] [facility], [address] [place] [address] 06/30/2025 7:00 PM EST Appointment [facility], Bone Density - [facility] [address] [place] [address] Benjy Audrey Horta, [facility] [address] [facility], [address] [place] [address] 10/02/2025 8:00 AM EDT Office Visit [address] [address] Audrey Burleson, [facility] [address] [facility], [address] [place] [address] [email or web address] Health Maintenance Due Date Last Done Comments HEPATITIS C SCREENING 02/07/1976 SCREENING FOR DIABETES 1993 COLOGUARD 2003 FIT TEST 2003 FOBT 2003 SIGMOIDOSCOPY 2003 VIRTUAL COLONOSCOPY 2003 ZOSTER VACCINES (2 of 3) 11/30/2012 10/05/2012 LIPID PANEL 10/16/2022 10/16/2021, 10/03, 04/22/2014 OSTEOPOROSIS SCREENING INITIAL (ONE-TIME) 2023 MAMMOGRAM 03/14/2024 03/14/2022, 09/03, 09/08/2015 INFLUENZA VACCINE (#1) 2025 , 03/24/2023, 03/10/2022, Additional history exists COVID-19 VACCINE ( season) 2025 02/29/2024, 04/17/2023, 03/25/2022, Additional history exists REPEAT PHQ 03/28/2025 02/26/2025, 02/26/2025 BLOOD PRESSURE 08/26/2025 02/26/2025 TSH LEVEL 10/01/2025 10/01/2024, 10/16/2021 DEPRESSION SCREENING 02/26/2026 02/26/2025, 02/27/20 25 COLONOSCOPY 10/09/2029 10/09/2024, 06/06, 01/11/2017, Additional history exists COLORECTAL CANCER SCREENING 10/09/2029 Adult Td,Tdap Booster 01/28/2030 01/29/2020 , 10/05/2012, 03/06/2006 HIB VACCINES Aged Out 04/08/2021 No longer eligi ble based on patient's age to complete this topic RSV VACCINE Completed 04/17/2023 PNEUMOCOCCAL VACCINES (50+ years) Completed 10/01/2024 SMOKING STATUS SCREENING (Once After 26 Yrs) Completed 02/26/2025 HEPATITIS A VACCINES Aged Out No long er eligible based on patient's age to complete this topic MENINGOCOCCAL VACCINES (ACWY) Aged Out No longer eligible based on patient's age to complete this topic MENINGOCOCCAL VACCINES (B) Aged Out N o longer eligible based on patient's age to complete this topic Medical Devices Not on file Procedures Procedure Name Priority Date/Time Associated Diagnosis Comments COLONOSCOPY FOR RESULT ENTRY ONLY Routine 10/09/2024 10:50 AM EDT MAMMOGRAPHY Routine 03/14/2022 OUTSIDE HDL Routine 10/16/2021 OUTSIDE TSH LEVEL Routine 10/16/2021 from Last 3 Months or Most Recently Relevant to Health Maintenance Results * COLONOSCOPY FOR RESULT ENTRY ONLY (10/09/2024 10:50 AM EDT) Jose White MD HEALTH MAINTENANCE Final Result * MAMMOGRAPHY FOR RESULT ENTRY ONLY (03/14/2022) Mammogram 1 year Historical Provider HEALTH MAINTENANCE Final Result * Outside TSH Level (10/16/2021) Pathologist [facility] TSH - External 3.61 0.5 - 5 uIU/L Historical Provider LAB BLOOD ORDERABLES Josie l Result * Outside HDL (10/16/2021) HDL - External 57 40 - 80 mg/dL us Historical Provider LAB BLOOD ORDERABLES Josie l Result from Last 3 Months or Most Recently Relevant to Health Maintenance Insurance [address] [place] [address] [employer] Member Subscriber Plan / Payer (Ef fective 2024-Present) Name:VedaDanielPrema Relation to Subscriber:Self Name:VedaDanielPrema Payer ID:[id number] (NAIC) Type:PPO Address: [place] [id number] [place] [address] [employer] Member Subscriber Plan / Payer (Ef fective 2024-Present) Name:Veda Prema Relation to Subscriber:Self Name:TeodorojeanaPrema Payer ID:[id number] (NAIC) Type:PPO Address: [address] [place] [address] [employer] [place] [address] [employer] [address] [place] [id number] [employer] Care Teams Outbound Sales Consultant Relationship Specialty Start Date End Date GiorgiAudrey jane, PORTFOLIO CONSULTANT [address] [facility], [address] [place] [address] [email or web address] PCP - General Family Medicine 06/16/21 Elba Ramirez DO [address] [facility], [address] [place] [address] [email or web address] Historical LMR Provider 03/20/17 Audrey Burleson, PORTFOLIO CONSULTANT [address] [facility], [address] [place] [address] [email or web address] Historical LMR Provider 03/20/17 Andres Delacruz MD [address] [facility] [address] [place] [id number] [email or web address] Historical LMR Provider 03/20/17 Additional Source Comments The information contained in this document represents components of the legal health record. It is not the complete legal health record.[facility]
--- OUTSIDE RECORDS SUMMARY | 2025-03-11 18:16 | XMS_ITS | Encounter Summary ---
Author Organization [facility] Address [address] [place] [address] Phone Care Team Providers Care Video Engineer Name Role Phone VipinElba wheeler Fuad BLAIR Unavailable [phone] Audrey BurlesonP Unavailable [phone] Andres Delacruz MD Unavailable Audrey Burleson [facility] Primary Care Provider [phone] Reason for Visit * Reason Onset Date Comments reported a fall 03/11/2025 Encounter Details Date Type Department Care Team ([facility] st Contact Info) Description 03/11/2025 Telephone [facility] [address] [place] [address] Audrey Burleson HADOOP INFRASTRUCTURE ARCHITECT [address] [facility], [address] [place], [place] [id number] [email or web address] reported a fall Social History Tobacco Use Types Packs/Day Years Used Date Smoking Tobacco: Never Smokeless Tobacco: Never Alcohol Use Standard Drinks/Week Comments No 0 [...] high school, GED, job training, learning the Emirati language, technical skills, or developing parenting skills)? [...] your housing situation today? I have semaj jernigan 09/27/2024 How many times have you move [...] Orientation Bisexual 09/08/2021 8: 17 AM EDT documented as of this encounter Progress Notes * Sharri Condon RN - 03/11/2025 10:52 AM EDT Spoke with patient. States she fell on Monday and hit her forehead. States she has fallen previously on ice in the winter and hit her forehead. States she is not on any blood thinners. Reports no dizziness/lightheadedness. States she does not feel altogether there . Advised patient she should be seen at ED. Patient states she will go today. Advised patient to have someone else drive her. Patientverbalized understanding. States she is going to [facility]. * Audrey Burleson FNP - 03/11/2025 9:41 AM EDT Thank you Liss - triage can you follow up with this patient (particularly if she does not present to the ED), to triage her symptoms and get her in for assessment if needed. Thank you! * Liss Galicia - 03/11/2025 9:14 AM EDT Pt came in requesting an appt as she fell yesterday. She fell one day last week Pt reported she did hit her head Her sister did help her to get up She denied having a headache, but stated that she felt foggy Pt drove herself to [facility], slowly Pt advised to go to ER as no appts at [facility] until Monday Pt stated she would go to the hospital documented in this encounter Plan of Treatment Upcoming Encounters Date Type Department Care Team (Late st Contact Info) Description 03/20/2025 12:00 PM EDT Office Visit [facility] [address] [place] [address] Audrey Burleson FNP [address] [facility] 7 [place] [address] 06/30/2025 7:00 PM EST Appointment [facility], Bone Density - [facility] [address] [place] [address] Audrey Burleson FNP [address] [place], [place] [address] [place] [address] 10/02/2025 8:00 AM EDT Office Visit [address] [address] Audrey Burleson FNP [address] [place] [address] [place] [address] documented as of this encounter Visit Diagnoses Not on filedocumented in this encounter Additional Health Concerns Assessment Noted Time PHQ-9 Depression Total Score: 22 025 3:34 PM EDT PHQ-2 Depression Total Score: 5 02/27/20 25 3:34 PM EDT documented as of this encounter Care Teams Video Engineer Relationship Specialty Start Date End Date Audrey Burleson FNP [address] [place] [address] [place] [address] PCP - General Family Medicine 06/16/21 Elba Ramirez DO [address] [place] [address] [place] [address] Historical LMR Provider 03/20/17 Audrey Burleson FNP [address] [place] [address] [place] [address] Historical LMR Provider 03/20/17 Andres Delacruz MD [address] [place] [address] [address] [place] [id number] [email or web address] Historical LMR Provider 03/20/17 documented as of this encounter Additional Source Comments The information contained in this document represents components of the legal health record. It is not the complete legal health record.[facility]
--- OUTSIDE RECORDS SUMMARY | 2025-03-11 18:16 | XMS_ITS | Encounter Summary ---
Author Organization [facility] Address [address] [facility] [address] [place] [address] Phone Care Team Providers Care Cotton Weigher Operator Name Role Phone VipinElba wheeler Fuad BLAIR Unavailable Audrey Burleson Unavailable Andres Delacruz MD Unavailable Audrey Burleson [facility] Primary Care Provider [phone] Reason for Visit * Reason Onset Date Comments Follow-up 03/11/2025 ED on 03/11/2025 Encounter Details Date Type Department Care Team (Late st Contact Info) Description 03/11/2025 Telephone Patel [facility] [address] [place], [place] [phone] Audrey Burleson FNP [address] [facility] [address] [place], [place] [id number] [email or web address] Follow-up (ED on 03/11/2025) Social History Tobacco Use Types Packs/Day Years [...] high school, GED, job training, learning the Bah[place]i language, technical skills, or developing parenting skills)? [...] as of this encounter Progress Notes * Nathalie Neil - 03/11/2025 3:20 PM EDT CD PEN Top Smart Phrases: Emergency Department (ED, ER) Appointment Booking Telephone Encounter 1.Appointment scheduled within 5 calendar days:YES/NO: no? 2.Virtual or in-person appointment: In-Person 3.Information related to the patient ER/ED visit: A. Facility Name:? [facility] B. Date of ED Visit: 03/11/2025 C. Reason for visit (Diagnosis/Symptoms):? Fall 03/09/2025 4.Is the record of the Emergency Department visit in the chart: YES/NO: no? a. IF NOT, patient was instructed to have records faxed to office, and to bring in a hard copy during the appointment. documented in this encounter Plan of Treatment Upcoming Encounters Date Type Department Care Team (Late st Contact Info) Description 03/20/2025 12:00 PM EDT Office Visit [address] [address] Audrey Burleson FNP [address] [place] [address] 06/30/2025 7:00 PM EST Appointment [facility], Bone [address] [address] Audrey Burleson FNP [address] [place] [address] 10/02/2025 8:00 AM EDT Office Visit [address] [address] Audrey Burleson FNP [address] [place] [address] [address] [place] [address] [email or web address] documented as of this encounter Visit Diagnoses Not on filedocumented in this encounter Additional Health Concerns Assessment Noted Time PHQ-9 Depression Total Score: 22 025 3:34 PM EDT PHQ-2 Depression Total Score: 5 02/27/20 25 3:34 PM EDT documented as of this encounter Care Teams Cotton Weigher Operator Relationship Specialty Start Date End Date Audrey Burleson, CARTRIDGE FILLER [address] [place] [address], [address] [place] [address] PCP - General Family Medicine 06/16/21 Elba Ramirez DO [address] [place] [address], [facility] [address] [place] [address] [email or web address] Historical LMR Provider 03/20/17 Audrey Burleson Rula, CARTRIDGE FILLER [address] [place] [address], [facility] [address] [place] [address] [email or web address] Historical LMR Provider 03/20/17 Andres Delacruz MD [address] [place] [address] [address] [place] [id number] [email or web address] Historical LMR Provider 03/20/17 documented as of this encounter Additional Source Comments The information contained in this document represents components of the legal health record. It is not the complete legal health record.[facility]
== END 2025-03-11 15:35 | disposition home or self-care (01) ==
PROVIDERS: Physician Assistant; Emergency Provider Emergency Medicine; PCP Nurse Practitioner Family
DX: R41.3 Other amnesia (principal); I10 Essential (primary) hypertension; Z91.81 History of falling
CPT/HCPCS: 36415; 70450; 72125; 80053; 82140; 84484; 85025; 93005; 99283; 99284

== ENCOUNTER → 2025-03-11 11:47 | Outpatient (BNV) | payer OTHER, SELFPAY | PROVIDERS: PCP Nurse Practitioner Family; Visit Provider Radiology Diagnostic Radiology | DX: S09.90XA Unspecified injury of head, initial encounter (principal); W19.XXXA Unspecified fall, initial encounter | CPT/HCPCS: 70450; 72125 ==

== ENCOUNTER → 2025-03-11 11:47 | Outpatient (BNV) | payer OTHER, SELFPAY | PROVIDERS: PCP Nurse Practitioner Family; Visit Provider Internal Medicine Cardiovascular Disease | DX: Z04.3 Encounter for examination and observation following other accident (principal) | CPT/HCPCS: 93010 ==

== ENCOUNTER 2025-05-07 13:03 | Outpatient (AMB) | payer OTHER, SELFPAY ==
[2025-05-07 13:24] VITALS: BP 136/80; PULSE 71; O2SAT 96; BMI 40.7
--- NOTE | 2025-05-07 13:24 | MHC.OFFVIS ---
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 Jul 2024 she had 4 falls in [place] but no head injury But she had a fall in Jun 2024 - in [place] and hit her head - no loss of consciousness. No headaches but seems mild cognitive impairment with difficulty at work . she had another fall in Mar 2025- uneven surface . she hit her head this time but no loss of consciousness. she has been on leave since then due to cognitive issues. she feels like she has to keep notes. 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 she has sleep problems , has snoring . she has had sleep study 10 years ago -c/w sleep apnea but she is not on treatment. she denies headaches but feels foggy most of the time.. she denies any dizziness - vertigo , denies photophobia, phonophoia. she has h/o tinnitus which has worsened in the past year. she caraballo sh/o depression and anxiety [facility] Medical History (Updated 05/07/25 @ 13:57 by Liliana Bach MD) Hypersomnia Snoring Obstructive sleep apnea Cognitive change JULIO (obstructive sleep apnea) Thoracic spondylosis Lumbar spondylolysis IBS (irritable bowel syndrome) GERD (gastroesophageal reflux disease) Postoperative hypothyroidism Dysphagia Endometrial cancer HTN (hypertension) Vitamin D deficiency Surgical History H/O colonoscopy History of endometrial biopsy Hx of partial thyroidectomy Hx of eye surgery Hx of total hysterectomy Family History Father High cholesterol Mother Dementia Sister Ovarian cancer Social History Household Members: None Are you a primary senior care assistant to a significant other at home: No Do you presently have visiting nurse or other home services: No Alcohol intake: never Patient Tobacco Use Status: Never used Tobacco Physical Exam Vital Signs: Last Vital Signs Pulse 71 05/07/25 13:24 BP 136/80 05/07/25 13:24 Pulse Ox 96 05/07/25 13:24 Oxygen Delivery Method Room Air 05/07/25 13:24 BMI result Body Mass Index 40.7 Const General: cooperative, healthy appearing, comfortable and no acute distress Nutritional Appearance: obese Orientation/consciousness: patient oriented x3 Eyes Pupils: Equal, round and reactive pupils present Neuro Other: decreased blink and facial expression Mallampatti grade 4 General: patient oriented x3, gait normal, tone normal, moves all extremities and no focal motor deficits Cranial nerves: Yes Facial sensation intact/muscles of mastication intact, Yes Equal, round and reactive pupils present, Yes Nystagmus not present and Yes Normal facial strength present Cognition (Neuro): normal cognition Gait exam (Neuro): Antalgic gait present Motor exam (neuro): 5/5 motor strength present throughout and Normal motor muscle tone present throughout Deep tendon reflexes (DTR's): Right triceps reflex intensity grade: 2+, Left triceps reflex intensity grade: 2+, Rt Biceps (C5, C6): 2+, Left biceps reflex intensity grade: 2+, Right brachioradialis reflex intensity grade: 2+, Left brachioradialis reflex intensity grade: 2+, Right patellar reflex intensity grade: 2+ and Left patellar reflex intensity grade: 2+ Coordination: [id number] test normal Orientation What is the (year) (season) (date) (day) (month)?: year, season, date, day and month Where are we (state) (county) (town or city) (hospital) (floor)?: state, county, town or city, hospital/clinic and floor Registration Name of 3 unrelated objects clearly and slowly, then ask patient to repeat all 3 of them. (1st repeat determines score. Make sure they can repeat all three): object 1, object 2 and object 3 Attention & Calculation (CHOOSE ONE) Spell WORLD backwards (DLROW): 5 letters Recall Ask patient to repeat the 3 items from question #3.: object 1, object 2 and object 3 Language Show patient a wristwatch & ask what it is. Repeat for pencil.: watch and pencil Ask the patient to repeat the phrase 'No ifs, ands, or buts' after you.: correct Ask the patient to 'take a piece of paper with their right hand' 'fold paper in half' 'place paper on floor': take paper in right hand, fold paper in half and place paper on floor Print the sentence 'CLOSE YOUR EYES' on a piece. If patient actually closes eyes then score.: followed written direction Give patient a blank piece of paper & ask to write a sentence. Score if it contains a noun & verb.: sentence contains subject and verb Ask patient to copy figure of intersecting pentagons exactly. Score if all 10 angles & 2 intersects are included.: all 10 angles present & 2 are intersected Score Score: 30 Assessment & Plan Assessment & Plan (1) Cognitive change: Comment: concussion , untreated sleep apnea Code(s): R41.89 - Other symptoms and signs involving cognitive functions and awareness Category: Medical (2) Obstructive sleep apnea: Comment: diagnsoed 10 years ago but not on treatment Code(s): G47.33 - Obstructive sleep apnea (adult) (pediatric) Category: Medical Plan MRI brain from 04/24/25 c/w chronic white matter changes I will reevaluate her with a sleep study . Untreaed sleep apnea might be contributing to her cognitive issues Orders: Orders Vitamin B12 and Folate Today R41.89 - Other symptoms and signs involving cognitive functions and awareness Complete Blood Count Auto Diff Today R41.89 - Other symptoms and signs involving cognitive functions and awareness TSH reflex Free T4 Today R41.89 - Other symptoms and signs involving cognitive functions and awareness Vitamin D 25-OH (D2 and D3) Today R41.89 - Other symptoms and signs involving cognitive functions and awareness RT home sleep study Today G47.10 - Hypersomnia, unspecified, R06.83 - Snoring, R41.89 - Other symptoms and signs involving cognitive functions and awareness Homocysteine Today R41.89 - Other symptoms and signs involving cognitive functions and awareness Erythrocyte Sedimentation Rate Today R41.89 - Other symptoms and signs involving cognitive functions and awareness Comprehensive Met. Panel Today R41.89 - Other symptoms and signs involving cognitive functions and awareness AMOS Reflex Titer and Pattern Today R41.89 - Other symptoms and signs involving cognitive functions and awareness Coding Level of Care Code New Pt Level 4 (61537) Complex visit Add On G2211 Diagnoses Cognitive change R41.89 Obstructive sleep apnea G47.33
--- OUTSIDE RECORDS SUMMARY | 2025-05-07 15:33 | XMS_ITS | Encounter Summary ---
Author Organization [facility] Address [address] [facility] [address] [place] [address] Phone Care Team Providers Care Web Communications Specialist Name Role Phone VipinMaame wheelerfaisal Merida DO Unavailable [phone] Audrey Burleson Unavailable Andres Delacruz MD Unavailable [phone] Audrey Burleson [facility] Primary Care Provider [phone] Reason for Visit * Reason Onset Date Comments Follow-up 03/11/2025 ED on 03/11/2025 Encounter Details Date Type Department Care Team (Late st Contact Info) Description 03/11/2025 Telephone [facility] [address] [place], [place] [id number] Audrey Burleson FNP 234 [facility] [address] [place], [place] [id number] [email or web address] Follow-up (ED on 03/11/2025) Social History Tobacco [...] high school, GED, job training, learning the [place] language, technical skills, or developing parenting skills)? [...] is your housing situation today? I have semja sing 09/27/2024 How many times have you [...] Nathalie Neil - 03/11/2025 3:20 PM EDT [facility] PEN Top Smart Phrases: Emergency Department (ED, ER) Appointment Booking Telephone Encounter 1.Appointment scheduled within 5 calendar days:YES/NO: no? 2.Virtual or in-person appointment: In-Person 3.Information related to the patient ER/ED visit: A. Facility Name:? [facility] B. Date of ED Visit: 03/11/2025 C. [...] Care Team (Late st Contact Info) Description 06/30/2025 7:00 PM EST Appointment [address] [address] Audrey Burleson [address] [address] [place]sa 10/02/2025 8:00 AM EDT Office Visit [facility] Medicine [address] [place] [address] Audrey Burleson [facility] [address] [address] documented as of this encounter Visit Diagnoses Not on filedocumented in this encounter Additional Health Concerns Assessment Noted Time PHQ-9 Depression Total Score: 22 02/26/ 025 3:34 PM EDT PHQ-2 Depression Total Score: 5 09/24/20 25 3:34 PM EDT documented as of this encounter Care Teams Web Communications Specialist Relationship Specialty Start Date End Date Audrey Burleson FNP [address] [place] [address], [facility] [address] [place] [address] PCP - General Family Medicine 06/16/21 Elba Ramirez DO [address] [place] [address], [facility] 7 [place] [address] Historical LMR Provider 03/20/17 Giorgilucinda Audrey HortaAWA [address] [place] [address], [facility] 7 [place] [address] [email or web address] Historical LMR Provider 03/20/17 Andres Delacruz MD [address] [place] [address] [address] [place] [address] [email or web address] Historical LMR Provider 03/20/17 documented as of this encounter Additional Source Comments The information contained in this document represents components of the legal health record. It is not the complete legal health record.[facility]
--- OUTSIDE RECORDS SUMMARY | 2025-05-07 15:34 | XMS_ITS | Encounter Summary ---
Author Organization [facility] Address [address] [facility] [address] [place] [address] Phone Care Team Providers Care Direct Selling Counselor Name Role Phone VipinMaame wheelerfaisal Merida DO Unavailable [phone] Audrey Burleson [employer] Unavailable [phone] Andres Delacruz MD Unavailable [phone] Audrey Burleson [facility] Primary Care Provider [phone] Encounter Details Date Type Department Care Team (Late st Contact Info) Description 03/20/2025 Procedure Pass [address] [place] [address] Social History Tobacco Use Types Packs/Day Years [...] high school, GED, job training, learning the [place] language, technical skills, or developing parenting skills)? [...] AM EDT documented as of this encounter Plan of Treatment Upcoming Encounters Date Type Department Care Team (Late st Contact Info) Description 06/30/2025 7:00 PM EST Appointment [facility] [place] [address] [place] [address] Audrey Burleson FNP 234 [facility] [address] [place] [address] [email or web address] 10/02/2025 8:00 AM EDT Office Visit [facility] 234 [facility] [place] [address] Audrey Burleson, [employer] 234 [facility], [facility] [address] [place] [address] [email or web address] documented as of this encounter Visit Diagnoses Not on filedocumented in this encounter Additional Health Concerns Assessment Noted Time PHQ-9 Depression Total Score: 22 025 3:34 PM EDT PHQ-2 Depression Total Score: 5 02/27/20 25 3:34 PM EDT documented as of this encounter Care Teams Direct Selling Counselor Relationship Specialty Start Date End Date GiorgiAudrey jane RulaAWA [address] [place] [address] 7 [place] [address] [address] PCP - General Family Medicine 06/16/21 Elba Ramirez DO [address] [place] [address] 7 [place] [address] [address] [email or web address] Historical LMR Provider 03/20/17 Audrey Burleson FNP [address] [place] [address] 7 [place] [address] [email or web address] Historical LMR Provider 03/20/17 Andres Delacruz MD [address] [place], [place] [address] [place] [address] [email or web address] Historical LMR Provider 03/20/17 documented as of this encounter Additional Source Comments The information contained in this document represents components of the legal health record. It is not the complete legal health record.[facility]
--- OUTSIDE RECORDS SUMMARY | 2025-05-07 15:34 | XMS_ITS | Encounter Summary ---
Author Organization [facility] Address [address] [facility] [address] [place] [address] Phone Care Team Providers Care Pigment Furnace Tender Name Role Phone VipinElba wheeler Fuad BLAIR Unavailable [phone] Audrey BurlesonP Unavailable [phone] Andres Delacruz MD Unavailable Audrey Burleson [facility] Primary Care Provider [phone] Reason for Visit * Reason Onset Date Comments new patient inquiry 05/05/2025 Encounter Details Date Type Department Care Team ([facility] st Contact Info) Description 05/05/2025 Telephone Workbooks [facility] [address] [place] [address] Audrey Burleson [facility] 234 [facility] [address] [place], [place] [id number] [email or web address] new patient inquiry Social History Tobacco Use Types Packs/Day Years [...] high school, GED, job training, learning the [place] language, technical skills, or developing parenting skills)? [...] as of this encounter Progress Notes * Audrey Burleson FNP - 05/05/2025 12:54 PM EST Yes, that would be fine, thank you. * Tricia Nogueira - 05/05/2025 9:29 AM EST Sheron (pt's sister) passed by the office this morning. Her PCP is retiring and she is wondering if you'd be willing to take her on as a patient. Please let me know either way and I can reach out toher. Thank you! documented in this encounter Plan of Treatment Upcoming Encounters Date Type Department Care Team (Late st Contact Info) Description 06/30/2025 7:00 PM EST Appointment [address] [address] Audrey Burleson FNP [address] [address] [place] 10/02/2025 8:00 AM EDT Office Visit [facility] Medicine [address] [place] [address] Audrey Burleson FNP [address] [address] documented as of this encounter Visit Diagnoses Not on filedocumented in this encounter Additional Health Concerns Assessment Noted Time PHQ-9 Depression Total Score: 22 025 3:34 PM EDT PHQ-2 Depression Total Score: 5 02/27/20 25 3:34 PM EDT documented as of this encounter Care Teams Pigment Furnace Tender Relationship Specialty Start Date End Date Audrey Burleson FNP [address] [address] [email or web address] PCP - General Family Medicine 06/16/21 Elba Ramirez DO [address] [place] [address], [facility] 7 [place] [address] [email or web address] Historical LMR Provider 03/20/17 Audrey Burleson FNP [address] [place] [address] 7 [place] [address] [email or web address] Historical LMR Provider 03/20/17 Andres Delacruz MD [address] [place] [address] [address] [place] [address] [email or web address] Historical LMR Provider 03/20/17 documented as of this encounter Additional Source Comments The information contained in this document represents components of the legal health record. It is not the complete legal health record.[facility]
--- OUTSIDE RECORDS SUMMARY | 2025-05-07 15:34 | XMS_ITS | Patient Health Record ---
Author Organization [facility] Address [address] [facility] [place] [address] Care Team Providers Care Tax Attorney Name Role Phone Audrey Burleson Primary Care Provider Josh Leong Unavailable [phone] Allergies Allergen (clinical drug ingredient) Drug/Non Drug [...] on an empty stomach Orally Once a day; Duration: 30 day(s) Active Metoprolol Succinate 25 MG 1 capsule Orally Once a day; Duration: 30 day(s) Active Venlafaxine HCl 37.5 MG 1 tablet with fo od Orally Once a day; Duration: 30 day(s) 75mg/150mg Active Work Note . . . patient must wear athletic shoes with orthoses to work until further notice Active buPROPion HCl ER (XL) 150 MG 1 tablet in the morning Orally Once a day; Duration: 30 day(s) Not-Taking Citalopram Hydrobromide 20 MG 1 tablet Orally Once a day; Duration: 30 day(s) Not-Taking Voltaren 1 % as [...] primary osteoarthritis of the ankle and/or foot (682935519) Primary osteoarthrit is, right ankle and foot (M19.071) Active confirmed Problem Localized, primary osteoarthritis of the ankle and/or foot (892243176) Primary osteoarthrit is, left ankle and foot (M19.072) Active confirmed Problem Acquired hallux valgus (83140740) Hallux valgus (acquired), right foot (M20.11) Active confirmed Problem Acquired hammer toe of right foot (1962280839575787) Other hammer toe(s) (acquired), right foot (M20.41) Active confirmed Problem Acquired hammer toe of left foot (2867887572673844) Other hammer toe(s) (acquired), left foot (M20.42) Active confirmed Plan Of Treatment Pending Test Test Name Order Date X ray : Foot, left 3V 12/13/2021 X ray : Foot, right 3V 12/13/2021 Insurance Providers Payer Name Payer Address Payer Phone Subscriber Number Group Number Insured Name Patient Relationship to Insured Coverage Start Date Coverage End Date Blue Benefits [id number] [place] [id number] Prema Mccollum Self - patient is the insured Medical (General) History Medical History History ICD Code Anxiety osteoarthritis Back,Hip,and Knee pain Broken bones Cancer Depression Headaches/Migraines High blood pressure Reflux ( GERD) Sciatica chronic sinusitis thyroid nodule Measles Mumps Chicken pox Obesity covid-19 Surgical History Surgery Date(Month/Year) eye surgery 1960, 1964 hysterectomy, total 11/2017 thyroidectomy, partial 02/2021 Thyriod Biopsy 12/2021
--- OUTSIDE RECORDS SUMMARY | 2025-05-07 15:34 | XMS_ITS | Clinical Summary ---
Author Organization [facility] Address [address] [facility] [address] [place] [address] Phone Care Team Providers Care Health Program Director Name Role Phone VipinMaame wheelerfaisal Merida DO Unavailable [phone] Audrey Burleson [facility] Unavailable [phone] Andres Delacruz MD Unavailable [phone] Audrey Burleson [facility] Primary Care Provider Allergies Active Allergy Reactions Criticality Noted Date [...] - she needs these done at a [place] lab site, she is going to call [...] Encounters Date Type Department Care Team Description 05/05/2025 Telephone [facility] [address] [facility] [place] [address] Audrey Burleson FNP new patient inquiry 04/22/2025 6:11 PM EST - 04/22/2025 11:59 PM EST Hospital Encounter [address] [place] [address] Audrey Burleson FNP Discharge Disposition: Home or Self Care 03/20/2025 12:00 PM EDT Office Visit [facility] [address] [facility] [place] [address] Audrey Burleson FNP Memory loss (Primary Dx); Concussion without loss of consciousness, subsequent encounter 03/20/2025 Procedure Pass [address] [place] [address] 03/12/2025 10:00 AM EDT Telemedicine [facility] [address] [place] [id number] Tia Powell, STEF Diarrhea, unspecified type (Primary Dx); Impaired fasting blood sugar 03/12/2025 Telephone [facility] [address] [place] [address] Audrey Burleson FNP Triage (Pt suspects she may have giardia, contracted from a client, runny yellow stool and high blood sugar labs at her [facility] ED visit) 03/11/2025 Telephone [facility] [address] [place] [address] Audrey Burleson FNP Follow-up (ED on 03/11/2025) 03/11/2025 Telephone [facility] [address] [place] [address] Audrey Burleson FNP reported a fall 02/26/2025 4:00 PM EDT Office Visit [facility] [address] [place] [address] Shamar Lee, Memory loss or impairment (Primary Dx); Severe episode of recurrent major depressive disorder, without psychotic features; S/P partial thyroidectomy 02/20/2025 Telephone [facility] [address] [place] [address] Audrey Burleson FNP Triage (Yellow + memory/cognitive [...] high school, GED, job training, learning the Russian language, technical skills, or developing parenting skills)? [...] Sign Reading Time Taken Comments Blood Pressure 138/68 03/20/2025 11:37 AM EDT Pulse 100 03/20/2025 11:37 AM EDT Temperature 36.4 C (97.6 F) 03/20/2025 11:37 AM EDT Respiratory Rate - - Oxygen Saturation 97% 03/20/2025 11:37 AM EDT Inhaled Oxygen Concentration - - Weight 113.4 kg (250 lb) 04/15/2025 5:30 PM EST Height 170.8 cm (5' 7.25 ) 04/15/2025 5:30 PM ES T Body Mass Index 38.86 04/15/2025 5:30 PM EST Plan of Treatment Upcoming Encounters Date Type Department Care Team (Late st Contact Info) Description 06/30/2025 7:00 PM EST Appointment [facility], Bone Density - [address] [address] Audrey Burleson [address] [place] [address] 10/02/2025 8:00 AM EDT Office Visit [facility] [address] [place] [address] Audrey Burleson HEAD WORKER [address] [facility] [address] [place] [address] Health Maintenance Due Date Last Done Comments [...] REPEAT PHQ 03/28/2025 02/26/2025, 02/26/2025 BLOOD PRESSURE 09/18/2025 03/20/2025 TSH LEVEL 10/01/2025 10/01/2024, 10/16/2021 DEPRESSION SCREENING [...] Procedure Name Priority Date/Time Associated Diagnosis Comments MRI BRAIN (MEMORY LOSS) WITHOUT CONTRAST Routine 04/22/2025 6:50 PM EST Memory loss HM COLONOSCOPY FOR RESULT ENTRY ONLY Routine 10/09/2024 10:50 AM EDT HM MAMMOGRAPHY Routine 03/14/2022 OUTSIDE HDL Routine 10/16/2021 OUTSIDE TSH LEVEL Routine 10/16/2021 from Last 3 Months or Most Recently Relevant to Health Maintenance Results * MRI BRAIN (MEMORY LOSS) WITHOUT CONTRAST (04/22/2025 6:50 PM EST) Anatomical Region Laterality Modality Head Magnetic Resonan ce 04/24/2025 2:06 PM EST Impressions 04/24/2025 2:19 PM EST 1. No acute intracranial abnormality. 2. Mild nonspecific likely chronic microangiopathic white matter changes and diffuse cerebral volume loss to a degree expected for age. Narrative 04/24/2025 2:19 PM EST MRI BRAIN (MEMORY LOSS) WITHOUT CONTRAST Referring clinician's provided indication for this examination in [facility]: * Memory Loss TECHNIQUE: MRI BRAIN (MEMORY LOSS) WITHOUT CONTRAST Multi-sequence, multi-planar MRI of the brain was performed WITHOUT intravenous contrast. COMPARISON: None FINDINGS: Brain Parenchyma: Mild scattered periventricular and subcortical white matter foci of FLAIR signal abnormality, nonspecific, but likely reflecting chronic small vessel disease. No evidence of acute infarct, mass lesion, or hemorrhage. Ventricular System and Extra-Axial Spaces: Partially empty sella. Mild prominence of the the ventricles and sulci to a degree expected for the patient's age; no definite regional pattern. No evidence of midline shift or hydrocephalus. Extracranial Structures: Expected arterial flow signal is observed at the skull base. Procedure Note Tina Wise MD - 04/24/2025 MRI BRAIN (MEMORY LOSS) WITHOUT CONTRAST Referring clinician's provided indication for this examination in [facility]: *Memory Loss TECHNIQUE: MRI BRAIN (MEMORY LOSS) WITHOUT CONTRAST Multi-sequence, multi-planar MRI of the brain was performed WITHOUTintravenous contrast. COMPARISON: None FINDINGS: Brain Parenchyma: Mild scattered periventricular and subcortical whitematter foci of FLAIR signal abnormality, nonspecific, but likelyreflecting chronic small vessel disease. No evidence of acute infarct,mass lesion, or hemorrhage. Ventricular System and Extra-Axial Spaces: Partially empty sella. Mildprominence of the the ventricles and sulci to a degree expected for thepatient's age; no definite regional pattern. No evidence of midline shiftor hydrocephalus. Extracranial Structures: Expected arterial flow signal is observed at theskull base. IMPRESSION: 1. No acute intracranial abnormality. 2. Mild nonspecific likely chronic microangiopathic white matter changesand diffuse cerebral volume loss to a degree expected for age. Audrey Burleson HEAD WORKER IMG MR HEAD/NECK Final Result * COLONOSCOPY FOR RESULT ENTRY ONLY (10/09/2024 10:50 AM EDT) Result [facility] Jose White MD HEALTH MAINTENANCE Final Result * MAMMOGRAPHY FOR RESULT ENTRY ONLY (03/14/2022) Mammogram 1 year Result [facility] Historical Provider HEALTH MAINTENANCE Final Result * Outside TSH Level (10/16/2021) Pathologist [facility] TSH - External 3.61 0.5 - 5 uIU/L Result [facility] Provider LAB BLOOD ORDERABLES Josie l Result * Outside HDL (10/16/2021) Pathologist [facility] HDL - External 57 40 - 80 mg/dL Result [facility] Historical Provider LAB BLOOD ORDERABLES Josie l Result from Last 3 Months or Most Recently Relevant to Health Maintenance Insurance [employer] BLUE BENEFITS ADMINIST[employer]ATORS [employer]EF[employer]MIN[employer]ATORS [employer] B[employer] BENEF[employer]MIN[employer]RATORS [employer] BENEFITS ADMINISTRATORS [employer]ENEF[employer]MIN[employer]RATORS Care Teams Health Program Director Relationship Specialty Start Date End Date Audrey Burleson FNP [address] [place] [address], [address] [place] [address] PCP - General Family Medicine 06/16/21 Elba Ramirez DO [address] [place] [address], [address] [place] [id number] Historical LMR Provider 03/20/17 Audrey BurlesonAWA [address] [place] [address], [address] [place] [address] [email or web address] Historical LMR Provider 03/20/17 Andres Delacruz MD [address] [place] [address]. [address] [place] [id number] [email or web address] Historical LMR Provider 03/20/17 Additional Source Comments The information contained in this document represents components of the legal health record. It is not the complete legal health record.[facility]
== END 2025-05-07 14:09 | disposition home or self-care (01) ==
LOC: HO.HSMS 13:03
PROVIDERS: PCP Nurse Practitioner Family; Visit Provider Psychiatry & Neurology Neurology
DX: R41.89 Other symptoms and signs involving cognitive functions and awareness (principal); G47.33 Obstructive sleep apnea (adult) (pediatric)
CPT/HCPCS: 99204

== ENCOUNTER 2025-05-12 10:50 | Outpatient (REF) | payer OTHER, SELFPAY ==
[2025-05-12 11:54] LABS: MANUAL DIFF FLAG NO
[2025-05-12 12:20] LABS: Hematocrit 44.6 % (37.0-47.0); Hemoglobin 14.6 g/dl (12.0-16.0); Imm Gran Abs Auto 0.03 X10*3/uL (0.00-0.03); Imm Gran Pct Auto 0.3 % (0.0-0.4); Lymphocytes Absolute Auto 2.3 X10*3/uL (1.2-4.9); Mean Corpuscular HGB Conc 32.7 g/dl (31.0-35.0); Mean Corpuscular Hemoglobin 29.2 pg (27.0-33.0); Mean Corpuscular Volume 89.2 fL (80.0-98.0); NRBC Abs Auto 0.000 X10*3/uL (0.0-0.012); NRBC Pct Auto 0.0 /100WBC (0.0-0.2); Platelet Count 239 X10*3/uL (160-400); Red Blood Count 5.00 X10*6/uL (4.20-5.50); White Blood Count 10.4 X10*3/uL (4.8-10.8)
[2025-05-12 13:24] LABS: Erythrocyte Sedimentation Rate 35 MM/HR (0-20)
[2025-05-12 13:25] LABS: Alanine Aminotransferase 33 U/L (0-31); Albumin Level 4.6 g/dL (3.5-5.0); Alkaline Phosphatase 123 U/L (39-117); Anion Gap 13 (12-20); Aspartate Amino Transferase 37 U/L (5-31); Blood Urea Nitrogen 19 mg/dL (9-16); Calcium 9.3 mg/dL (8.4-10.2); Carbon Dioxide 27 mmol/L (22-29); Chloride 105 mmol/L (96-108); Estimated Glomerular Filt Rate > 60; Potassium 4.3 mmol/L (3.3-5.1); Sodium 141 mmol/L (135-145); Total Protein 7.5 g/dL (6.5-8.0)
[2025-05-12 13:40] LABS: Thyroid Stimulating Hormone 1.92 uIU/mL (0.32-4.0)
[2025-05-12 13:54] LABS: Folate 8.0 ng/mL (> or = 4.0); Vitamin B12 212 pg/mL (200-900)
[2025-05-12 14:44] LABS: Gamma Glutamyl Transpeptidase 24 U/L (7-33)
[2025-05-13 09:29] LABS: Lyme Abs Screen <0.90 index
[2025-05-13 12:57] LABS: Anti Nuclear Antibody Screen NEGATIVE (NEGATIVE)
[2025-05-15 07:29] LABS: Vitamin D 25-OH, D2 <4 ng/mL; Vitamin D 25-OH, D3 16 ng/mL; Vitamin D 25-OH, Total 16 ng/mL (30-100)
== END 2025-05-12 10:51 | disposition home or self-care (01) ==
LOC: HO.LAB 10:50
PROVIDERS: Absent Provider Psychiatry & Neurology Psychiatry; PCP Nurse Practitioner Family; Visit Provider Psychiatry & Neurology Neurology
DX: Z01.84 Encounter for antibody response examination (principal); F33.1 Major depressive disorder, recurrent, moderate; R41.89 Other symptoms and signs involving cognitive functions and awareness; Z13.21 Encounter for screening for nutritional disorder; Z13.6 Encounter for screening for cardiovascular disorders
CPT/HCPCS: 36415; 80053; 80076; 82175; 82248; 82300; 82306; 82570; 82607; 82746; 82977; 83018; 83090; 83655; 83825; 83921; 84443; 85025; 85652; 86038; 86617; 86618